=== PATIENT | female | born 1945 | race Caucasian/White ===

== ENCOUNTER 2016-10-31 07:21 | Inpatient (IN) ==
[2016-10-31] MEDS ORDERED: Piperacillin/Tazobactam 3.375 GM in D5% in Water (Mini-Bag+) 100 ML IVPB ONE (07:38)
[2016-10-31] MEDS ORDERED: Vancomycin 1,750 MG in D5% in Water 250 ML IVPB ONE (07:38)
[2016-10-31] MEDS ORDERED: 0.9 % Sodium Chloride 1,000 ML IVC ONE (07:38)
[2016-10-31] MEDS ORDERED: Vancomycin 1,750 MG in D5% in Water 500 ML IVPB ONE (08:00)
--- NOTE | 2016-10-31 08:06 | Emergency Department Note ---
Disposition Clinical Impression: HCAP (healthcare-associated pneumonia) Disposition: Admitted As Inpatient Condition: Fair Referrals: Cecy Valdez MD [Primary Care Provider] - Forms: ED Satisfaction Letter Time of Disposition: 09:37 SOB HPI - General Chief Complaint: ED Shortness of Breath/Dyspnea Stated Complaint: AMANDA/weakness/unsteady on feet Time Seen by Provider: 10/31/16 07:35 Source: patient, EMS Limitations: no limitations Nursing Notes Reviewed: Yes Vital Signs Reviewed: Yes - History of Present Illness Pt Subjective Complaint: shortness of breath Onset (ago): day(s) (3 days) Severity: severe (She cannot walk from one room to the next in her house without visibly becoming very short of breath) Consistency/Duration: constant, gradually worsening Improves with: rest Worsens with: exertion Known history of: COPD, congestive heart failure, diabetes Associated symptoms: Reports: fever, cough, other (Weakness) Treatment prior to arrival: none Cough present: Yes Cough Frequency: Intermittent Sputum production: Yes Sputum Amount: Scant - Related Data Home Medications Medication Instructions Recorded Confirmed Alendronate Sodium 70 mg PO SA 01/16/15 08/13/16 Ascorbic Acid [Vitamin C] 500 mg PO BID 01/16/15 08/13/16 Aspirin Enteric Coated [Aspirin EC] 81 mg PO HS 01/16/15 08/13/16 Atorvastatin [Lipitor] 40 mg PO HS 01/16/15 08/13/16 Cholecalciferol (Vitamin D3) 1,000 unit PO HS 01/16/15 08/13/16 [Vitamin D] Levothyroxine [Synthroid] 50 mcg PO QAM 01/16/15 08/13/16 Metoprolol XL (24 HR) Succ [Toprol 100 mg PO QPM 01/16/15 08/13/16 XL] Calcium Carbonate [Calcium] 600 mg PO BID 08/13/16 08/13/16 Denosumab [Prolia (For Outpatient 60 mg SQ Q6M 08/13/16 08/13/16 Infusion)] Gabapentin [Neurontin] 200 mg PO HS 08/13/16 08/13/16 Glucosam/Chond/Hyalu/Cf Borate 1 each PO HS 08/13/16 08/13/16 [Move Free Joint Health Tablet] Insulin Human Regular [HumuLIN R] 5 - 10 unit SQ TID 08/13/16 08/13/16 Lactobacillus Combination No.8 1 cap PO QPM 08/13/16 08/13/16 [Adult Probiotic] Lidocaine Patch [Lidoderm 5% patch] 1 each TP DAILY 08/13/16 08/13/16 Multivitamin [Multivitamins] 1 each PO DAILY 08/13/16 08/13/16 [place]-3/Dha/Epa/Fish Oil [Fish Oil 1 each PO HS 08/13/16 08/13/16 1,000 mg Softgel] Ranitidine HCl [Zantac] 150 mg PO HS 08/13/16 08/13/16 Sodium Bicarbonate 650 mg PO TID 08/13/16 08/13/16 amLODIPine [Norvasc] 5 mg PO QPM 08/13/16 08/13/16 Allergies Allergy/AdvReac Type Severity Reaction Status Date / Time levofloxacin Allergy Severe Itching Verified 10/31/16 07:24 All systems ED: reviewed and negative except as stated. Constitutional: Reports: fever, chills ENT ED: Denies: ear pain, throat pain, congestion Cardiovascular: Denies: chest pain, palpitations Respiratory: Reports: cough, dyspnea Gastrointestinal: Denies: abdominal pain, nausea, vomiting Musculoskeletal: Denies: back pain Integumentary: Denies: rash Neurological: Reports: weakness (Generalized). Denies: headache Past Medical History - Past Medical History Attestation: Yes The following information was validated with the patient. Source: patient, old records reviewed, obtained from family, nursing notes reviewed Medical history: Reports: arthritis, asthma, CHF, COPD, diabetes, dialysis, GERD , hyperlipidemia, hypertension, osteoporosis, renal disease, thyroid disease, other Surgical history: Reports: angioplasty/stent, cataract, cholecystectomy, herniorrhaphy, other Psychiatric history: Reports: no psych history SURGICAL APPLIANCE FITTER history: Reports: no SURGICAL APPLIANCE FITTER history - Social History Smoking Status: Former smoker Smokeless Tobacco Status: No Alcohol use: Reports: none Drug use: Reports: none Physical Exam - General Limitations: no limitations General appearance: alert - Head Head exam: atraumatic, normocephalic - Eye Eye exam: Present: normal appearance, PERRL. Absent: scleral icterus, conjunctival injection - ENT ENT exam: normal oropharynx, mucous membranes moist, TM's normal bilaterally - Neck Neck exam: Present: normal inspection, full ROM. Absent: tenderness, meningismus - Chest Chest inspection: Present: normal inspection, symmetric chest wall rise. Absent : tenderness - Respiratory Respiratory exam: Present: normal lung sounds bilaterally. Absent: respiratory distress, wheezes - Cardiovascular Cardiovascular exam: Present: regular rate, normal rhythm, normal heart sounds - Abdominal Exam Abdominal exam: Present: soft, Non-Tender, normal bowel sounds - Extremities Exam Extremities exam: Present: full ROM. Absent: tenderness - Neurological Exam Neurological exam: Present: alert, oriented X3 - Psychiatric Psychiatric exam: Present: normal affect, normal mood - Skin Skin exam: Present: warm, dry. Absent: rash Course Course Narrative: Patient arrives she will return to complaint of shortness of breath superimposed on several days of cough. She now has fevers and chills as well. She arrives here with a temperature. Patient has multiple significant medical issues including COPD, diabetes, and end-stage renal disease and gets dialysis( last dialysis was yesterday and went without issue). Concern here for sepsis. I ordered sepsis labs and ordered empiric antibiotic coverage. I ordered IV fluids but not at 30/kg given the patient's history of dialysis and concern for volume overload. Her blood pressure and heart rate are good so I will give fluids in response to re-evaluations. Disposition will be based on diagnostic results and reevaluation. - Reevaluation(s) Reevaluation #1: Patient is resting comfortably. Labs appear baseline at this point. There is a pneumonia on the chest x-ray. Patient will need to be admitted. Vital signs are good. I have already discussed the case with her all round butcher. Antibiotics already running. I tried to get a blood gas on the patient but it was challenging and family now refuses to let us get a blood gas. Patient is tired but not somnolence and does not appear to be needing BiPAP or airway intervention at this point. I did order some breathing treatments. I am waiting for the hospitalist to call back for the admission. Time: 09:23 - Consultations Consultation #1: Dr. Crowell, nephrology - I discussed the case with the patient's all round butcher. He is aware of the case at this point. He recommends admission to the hospitalist service. Time: 09:22 Consultation #2: Dr. Lam, hospitalist - I discussed the case with the hospitalist. I discussed case presentation, diagnostic results, current condition of the patient. He has accepted the patient for admission to the hospital. Time: 09:37 Vital Signs Temperature 100.3 F H 10/31/16 07:25 Pulse Rate 96 10/31/16 07:25 Respiratory Rate 24 10/31/16 07:25 Blood Pressure 162/70 10/31/16 07:25 O2 Sat by Pulse Oximetry 87 10/31/16 07:25 Temperature 100.3 F H 10/31/16 07:25 Pulse Rate 93 10/31/16 07:30 Respiratory Rate 24 10/31/16 07:30 Blood Pressure 158/136 10/31/16 07:30 O2 Sat by Pulse Oximetry 93 10/31/16 07:32 Oxygen Delivery Oxygen Delivery Nasal Cannula Shortness of Breath/Dyspnea - Medical Records Medical records reviewed: Yes I reviewed the patient's medical records. - Lab Data Lab results reviewed: Yes I reviewed the patient's lab results. Result diagrams: 10/31/16 08:23 10/31/16 08:12 Lab Results 10/31/16 10/31/16 10/31/16 Range/Units 08:12 08:23 08:23 WBC 11.6 H (4.3-11.1) K/mcL RBC 3.22 L (3.82-4.97) M/mcL Hgb 9.4 L (11.5-15.4) g/dL Hct 31.7 L (35.3-44.9) % MCV 98.4 (83.0-100.0) fL MCH 29.2 (28.0-33.3) pg MCHC 29.7 L (31.6-35.5) g/dL RDW 14.0 (11.5-14.5) % Plt Count 201 (140-400) K/mcL MPV 10.4 (9.4-12.4) fL Immature Gran % 0.5 (0-4) % Seg Neutrophils % 83.3 % Lymphocytes % 8.0 % Monocytes % 7.7 % Eosinophils % 0.2 % Basophils % 0.3 % Neutrophils # 9.7 H (1.6-8.9) K/mcL Lymphocytes # 0.9 (0.6-4.6) K/mcL Monocytes # 0.9 (0.0-1.3) K/mcL Eosinophils # 0.0 (0.0-0.6) K/mcL Basophils # 0.0 (0.0-0.2) K/mcL Immature Plt Fraction 3.6 (1.1-6.1) % PT 14.4 H (9.4-12.1) Seconds INR 1.3 APTT 25.7 L (26.0-36.0) Seconds Sodium 139 (136-145) mEq/L Potassium 5.5 H (3.5-4.5) mEq/L Chloride 97 L (98-109) mEq/L Carbon Dioxide 26 (19-29) mEq/L BUN 40 H (7-20) mg/dL Creatinine 6.04 H (0.57-1.11) mg/dL Est GFR ( Amer) 8 L (> 60) Est GFR (Non-Af Amer) 7 L (> 60) BUN/Creatinine Ratio 7 (6-26) Glucose 175 H (70-99) mg/dL Calculated Osmolality 302 H (280-300) Lactic Acid (0.5-2.2) mmol/L Calcium 9.9 (8.6-10.8) mg/dL Phosphorus 3.6 (2.3-4.7) mg/dL Magnesium 2.2 (1.6-2.6) mg/dL Total Bilirubin 1.0 (0.2-1.2) mg/dL Direct Bilirubin 0.6 H (0.0-0.5) mg/dL Indirect Bilirubin 0.4 (0.0-1.2) mg/dL AST 56 H (5-34) Units/L ALT 97 H (0-55) Units/L Alkaline Phosphatase 284 H (38-126) Units/L Troponin I (0-0.03) ng/mL Serum Total Protein 7.5 (6.0-8.3) g/dL Albumin 2.8 L (3.5-5.0) g/dL Globulin 4.7 H (2.4-3.5) g/dL Albumin/Globulin Ratio 0.6 L (1.1-2.2) 10/31/16 10/31/16 Range/Units 08:23 08:23 WBC (4.3-11.1) K/mcL RBC (3.82-4.97) M/mcL Hgb (11.5-15.4) g/dL Hct (35.3-44.9) % MCV (83.0-100.0) fL MCH (28.0-33.3) pg MCHC (31.6-35.5) g/dL RDW (11.5-14.5) % Plt Count (140-400) K/mcL MPV (9.4-12.4) fL Immature Gran % (0-4) % Seg Neutrophils % % Lymphocytes % % Monocytes % % Eosinophils % % Basophils % % Neutrophils # (1.6-8.9) K/mcL Lymphocytes # (0.6-4.6) K/mcL Monocytes # (0.0-1.3) K/mcL Eosinophils # (0.0-0.6) K/mcL Basophils # (0.0-0.2) K/mcL Immature Plt Fraction (1.1-6.1) % PT (9.4-12.1) Seconds INR APTT (26.0-36.0) Seconds Sodium (136-145) mEq/L Potassium (3.5-4.5) mEq/L Chloride (98-109) mEq/L Carbon Dioxide (19-29) mEq/L BUN (7-20) mg/dL Creatinine (0.57-1.11) mg/dL Est GFR ( Amer) (> 60) Est GFR (Non-Af Amer) (> 60) BUN/Creatinine Ratio (6-26) Glucose (70-99) mg/dL Calculated Osmolality (280-300) Lactic Acid 1.1 (0.5-2.2) mmol/L Calcium (8.6-10.8) mg/dL Phosphorus (2.3-4.7) mg/dL Magnesium (1.6-2.6) mg/dL Total Bilirubin (0.2-1.2) mg/dL Direct Bilirubin (0.0-0.5) mg/dL Indirect Bilirubin (0.0-1.2) mg/dL AST (5-34) Units/L ALT (0-55) Units/L Alkaline Phosphatase (38-126) Units/L Troponin I 0.13 H* (0-0.03) ng/mL Serum Total Protein (6.0-8.3) g/dL Albumin (3.5-5.0) g/dL Globulin (2.4-3.5) g/dL Albumin/Globulin Ratio (1.1-2.2) - Radiology Data Radiology results reviewed: Yes I reviewed the patient's radiology results. - EKG Data EKG attestation: Yes I reviewed and interpreted this EKG. EKG shows normal: Reports: sinus rhythm Rate: Reports: normal [place]/QRS: Reports: left axis deviation Heart block present: Reports: 1st Degree When compared to previous EKG there are: no significant changes Interpretation: Reports: unchanged when compared to prior tracing (date) (August 2015), nonspecific ST-T wave changes
[2016-10-31 08:30] LABS: Basophils % 0.3 %; Eosinophils % 0.2 %; Hematocrit 31.7 % (35.3-44.9); Hemoglobin 9.4 g/dL (11.5-15.4); Immature Granulocytes % 0.5 % (0-4); Immature Platelets 3.6 % (1.1-6.1); Lymphocytes # 0.9 K/mcL (0.6-4.6); Mean Corpuscular HGB Conc 29.7 g/dL (31.6-35.5); Mean Corpuscular Hemoglobin 29.2 pg (28.0-33.3); Mean Corpuscular Volume 98.4 fL (83.0-100.0); Mean Platelet Volume 10.4 fL (9.4-12.4); Monocytes # 0.9 K/mcL (0.0-1.3); Monocytes % 7.7 %; Neutrophils # 9.7 K/mcL (1.6-8.9); Platelet Count 201 K/mcL (140-400); Red Blood Count 3.22 M/mcL (3.82-4.97); Segmented Neutrophils % 83.3 %
[2016-10-31 08:33] LABS: Albumin 2.8 g/dL (3.5-5.0); Albumin/Globulin Ratio 0.6 (1.1-2.2); Bilirubin,Direct 0.6 mg/dL (0.0-0.5); Bilirubin,Indirect 0.4 mg/dL (0.0-1.2); Calcium 9.9 mg/dL (8.6-10.8); Globulin 4.7 g/dL (2.4-3.5); Magnesium 2.2 mg/dL (1.6-2.6); Phosphorous 3.6 mg/dL (2.3-4.7); Potassium 5.5 mEq/L (3.5-4.5); Total Protein 7.5 g/dL (6.0-8.3)
[2016-10-31 08:34] LABS: INR 1.3; Prothrombin Time 14.4 Seconds (9.4-12.1)
[2016-10-31 08:37] LABS: Activated Partial Thrombo Time 25.7 Seconds (26.0-36.0)
[2016-10-31] MEDS ORDERED: Ipratropium/Albuterol Neb 3 ML IH ONE (09:17)
[2016-10-31] MEDS ORDERED: Naloxone 0.4 MG/ML INJ IVP PRN (10:04)
--- NOTE | 2016-10-31 10:23 | Internal Med History&Physical ---
Date of Encounter: 10/31/16 Time of Encounter: 09:50 Assessment and Plan (1) Pneumonia Current visit: Yes Status: Suspected Patient presented with pneumonia involving the right lung concerning for healthcare associated pneumonia. We will treat with broad-spectrum antibiotics. Admit inpatient. She will stay in hospital for at least 2 midnights. Follow blood and sputum cultures. High risk for complications Qualifiers: Pneumonia type: due to methicillin-resistant Staphylococcus aureus (MRSA) Laterality: right Lung location: upper lobe of lung Qualified Code(s): J15.212 - Pneumonia due to Methicillin resistant Staphylococcus aureus (2) Anemia Current visit: Yes Status: Chronic Anemia of chronic kidney disease. Hemoglobin is at baseline. Will monitor closely. Qualifiers: Anemia type: other cause Other causes of anemia: chronic disease, neoplastic Qualified Code(s): D63.0 - Anemia in neoplastic disease (3) Chronic respiratory failure Current visit: Yes Status: Chronic Continue O2 supplementation Qualifiers: Respiratory failure complication: hypoxia Qualified Code(s): J96.11 - Chronic respiratory failure with hypoxia (4) Congestive heart failure Current visit: No Status: Chronic Patient with chronic diastolic heart failure. Not in acute exacerbation at this time. Fluid restriction and volume management with hemodialysis Qualifiers: Congestive heart failure type: diastolic Congestive heart failure chronicity: chronic Qualified Code(s): I50.32 - Chronic diastolic (congestive ) heart failure (5) Diabetes mellitus Current visit: Yes Status: Chronic Monitor blood sugars. Sliding scale insulin. Diabetic diet. Qualifiers: Diabetes mellitus type: type 2 Diabetes mellitus complication status: with kidney complications Diabetes mellitus complication detail: with chronic kidney disease Diabetes mellitus long term care social worker insulin use: with shelter use Chronic kidney disease stage: on chronic dialysis Qualified Code(s): E11.22 - Type 2 diabetes mellitus with diabetic chronic kidney disease; N18.6 - End stage renal disease; Z79.4 - long term care social worker (current) use of insulin; Z99.2 - Dependence on renal dialysis (6) ESRD (end stage renal disease) on dialysis Current visit: Yes Status: Chronic Nephrology consulted for dialysis needs. (7) HCAP (healthcare-associated pneumonia) Current visit: Yes Status: Acute (8) Essential hypertension Current visit: Yes Status: Chronic Uncontrolled. Continue home medications and monitor blood pressure closely. Adjust antihypertensives accordingly. (9) Hyperkalemia Current visit: Yes Status: Acute Will be managed with hemodialysis. Potassium 5.5 today. (10) COPD (chronic obstructive pulmonary disease) Current visit: No Status: Chronic Continue bronchodilators and O2 supplementation. Does not appear to be in acute exacerbation at this time. Qualifiers: COPD type: unspecified COPD Qualified Code(s): J44.9 - Chronic obstructive pulmonary disease, unspecified Internal Medicine - H&P: HPI Chief complaint: Shortness of breath, malaise Admitted From: Emergency Dept Plans for Post Hospital Care: Transfer Residential Facility History of present illness: Ms. Richey is a 71 year old female patient with history of COPD, end-stage renal disease on hemodialysis, congestive heart failure, diabetes mellitus type 2, chronic respiratory failure on 2 L home oxygen presented to the ER with complaints of worsening shortness of breath for the past 3 days. She is not able to ambulate for even from one room to the next because of her significant shortness of breath. She has also been having some wheezing that is not relieved with her aggressive treatments for COPD. She has had some fever and cough without any sputum. She feels weak and tired and fatigued. She has not missed any dialysis sessions. She was dialyzed yesterday. She has not been hospitalized recently. Past Med Surg Social Fam HX - Past Medical History Attestation: Yes The following information was validated with the patient. Source: patient, old records reviewed, obtained from family Medical history: arthritis, asthma, CHF, COPD, diabetes, dialysis, GERD, hyperlipidemia, hypertension, osteoporosis, renal disease, thyroid disease, other Psychiatric history: no psych history - Past Surgical History Surgical History: angioplasty/stent, cataract, cholecystectomy, herniorrhaphy, other - Social History Smoking Status: Former smoker Smokeless Tobacco Status: No Alcohol use: none Drug use: none - Family History Father Living Status: Hx Family Cardiac Disorders: Yes - Additional Family History Additional family history: Reviewed and found to be noncontributory at this time Internal Medicine - H&P: Meds Alendronate Sodium 70 mg PO SA 01/16/15 [History] Ascorbic Acid [Vitamin C] 500 mg PO BID 01/16/15 [History] Aspirin Enteric Coated [Aspirin EC] 81 mg PO HS 01/16/15 [History] Atorvastatin [Lipitor] 40 mg PO HS 01/16/15 [History] Cholecalciferol (Vitamin D3) [Vitamin D] 1,000 unit PO HS 01/16/15 [History] Levothyroxine [Synthroid] 50 mcg PO QAM 01/16/15 [History] Metoprolol XL (24 HR) Succ [Toprol XL] 100 mg PO QPM 01/16/15 [History] Calcium Carbonate [Calcium] 600 mg PO BID 08/13/16 [History] Denosumab [Prolia (For Outpatient Infusion)] 60 mg SQ Q6M 08/13/16 [History] Gabapentin [Neurontin] 200 mg PO HS 08/13/16 [History] Glucosam/Chond/Hyalu/Cf Borate [Move Free Joint Health Tablet] 1 each PO HS 08/26 [History] Lactobacillus Combination No.8 [Adult Probiotic] 1 cap PO QPM 08/13/16 [History] Lidocaine Patch [Lidoderm 5% patch] 1 each TP DAILY 08/13/16 [History] Multivitamin [Multivitamins] 1 each PO DAILY 08/13/16 [History] [place]-3/Dha/Epa/Fish Oil [Fish Oil 1,000 mg Softgel] 1 each PO HS 08/13/16 [ History] Ranitidine HCl [Zantac] 150 mg PO HS 08/13/16 [History] Sodium Bicarbonate 650 mg PO TID 08/13/16 [History] Albuterol Sulfate [Albuterol Inhaler] 2 puff IH Q6HR PRN 10/31/16 [History] Calcium Acetate [Phos-LO] 2,001 mg PO TIDWM 10/31/16 [History] HYDROcodone/Acet 5/325 mg [[place] 5-325 mg] 1 tab PO TID PRN 10/31/16 [History] Insulin Regular, Human [Novolin R] 5 - 10 unit IJ TID MDD per sliding scale [History] Oxygen 2 l NS CONT 10/31/16 [History] Allergies levofloxacin Allergy (Severe, Verified 10/31/16 07:24) Itching All Systems PM: A 10-system review of systems was performed and is negative for pertinent findings except as documented above in the HPI. - Constitutional Constitutional: fatigue, lethargy, malaise, weakness, no chills, no fever(s), no night sweats - EENT Eyes: no change in vision, no discharge, no pain, no photophobia Ears: no ear discharge, no ear pain, no tinnitus Nose, mouth and throat: no dysphagia, no nasal discharge, no neck pain, no sore throat - Cardiovascular Cardiovascular ROS IM: dyspnea, no chest pain, no diaphoresis, no lightheadedness, no palpitations, no syncope - Respiratory Respiratory: cough, dyspnea, dyspnea on exertion, wheezing, no excessive phlegm production - Gastrointestinal Gastrointestinal: no abdominal pain, no diarrhea, no hematemesis, no hematochezia, no melena, no nausea, no vomiting - Genitourinary Genitourinary: no change in urinary stream, no dysuria, no flank pain, no hematuria - Musculoskeletal Musculoskeletal ROS IM: no numbness, no tingling - Integumentary Integumentary IM: no rash, no unusual bruising - Neurological Neurological ROS: no confusion, no convulsions, no focal weakness, no numbness, no tingling, no tremor(s) - Hematologic/Lymphatic Hematologic/Lymphatic: no easy bruising - Constitutional Vitals: Temp Pulse Resp BP Pulse Ox 100.3 F H 93 16 158/136 98 10/31/16 07:25 10/31/16 07:30 10/31/16 10:11 10/31/16 07:30 10/31/16 10:11 General appearance: Present: cooperative, A&O X 3, morbidly obese, answers questions appropriately Exam: Moderate distress - Eye Eye exam: Present: EOMI, PERRL, conjuntiva pink, sclera anicteric - Neck Neck exam general surgery: Present: supple, trachea midline. Absent: lymphadenopathy - Respiratory Respiratory exam: Present: prolonged expiratory phase. Absent: accessory muscle use, rales, rhonchi, wheezes Additional comments: Coarse breath sounds in the right lung - Cardiovascular Cardiovascular exam: Present: RRR, +S1, +S2. Absent: diastolic murmur, gallop, rubs, systolic murmur - GI/Abdominal GI/Abdominal exam: Present: normal bowel sounds, soft, no peritoneal signs. Absent: distended, tenderness - Extremities Exam Extremities exam: Present: pedal edema, warm, radial pulses palpable and symetrical. Absent: calf tenderness, cyanotic - Neurological Exam Neurological exam: Present: alert, oriented X3, no focal deficits. Absent: facial droop, speech deficit - Skin Skin exam: Present: dry, intact Internal Med - H&P Results - Labs CBC & Chem 7: 10/31/16 08:23 10/31/16 08:12 - Impressions Impressions Chest X-Ray 10/31/16 07:39 IMPRESSION: Vascular congestion with dense right upper lobe consolidation. Recommend follow up evaluations until clear. D/ / 10/31/2016 07:58:02 Ankush Mariscal MD / jennifer Interpreting Provider: Ankush Mariscal MD
[2016-10-31] MEDS ORDERED: Dextrose Gel 15 GM PO PRN ×2 (10:33)
[2016-10-31] MEDS ORDERED: D5% in Water 1,000 ML IVC PRN (10:33)
[2016-10-31] MEDS ORDERED: *HR* Dextrose 50 % in Water (Syg) 50 ML SYRINGE IVP PRN (10:33)
[2016-10-31] MEDS ORDERED: Cefepime HCl 1,000 MG in D5% in Water (Mini-Bag+) 100 ML IVPB SCH (11:00)
[2016-10-31] MEDS: Acetaminophen 325 MG TABLET PO PRN ×2 (12:08→20:15)
[2016-10-31] MEDS: Insulin LISPRO 300 UNITS/3 ML VIAL SQ SCH ×3 (12:08→20:15)
[2016-10-31] MEDS ORDERED: Piperacillin/Tazobactam 3.375 GM in D5% in Water (Mini-Bag+) 100 ML IVPB SCH (16:00)
[2016-10-31] MEDS ORDERED: Piperacillin/Tazobactam 2.25 GM in D5% in Water (Mini-Bag+) 100 ML IVPB SCH (16:00)
[2016-10-31] MEDS: *HR* Heparin 5,000 UNIT/ML VIAL SQ SCH (16:49)
[2016-10-31] MEDS: Ipratropium/Albuterol Neb 3 ML IH PRN ×2 (17:03→20:29)
[2016-11-01] MEDS: Acetaminophen 325 MG TABLET PO PRN ×2 (04:12→14:09)
[2016-11-01] MEDS: *HR* Heparin 5,000 UNIT/ML VIAL SQ SCH ×2 (05:34→17:10)
[2016-11-01 07:47] LABS: Potassium 5.4 mEq/L (3.5-4.5)
[2016-11-01 07:48] LABS: Calcium 8.4 mg/dL (8.6-10.8)
[2016-11-01 07:57] LABS: Basophils % 0.1 %; Eosinophils % 0.1 %; Hematocrit 28.6 % (35.3-44.9); Hemoglobin 8.8 g/dL (11.5-15.4); Immature Granulocytes % 0.3 % (0-4); Lymphocytes # 0.7 K/mcL (0.6-4.6); Lymphocytes % 4.8 %; Mean Corpuscular HGB Conc 30.8 g/dL (31.6-35.5); Mean Corpuscular Volume 97.6 fL (83.0-100.0); Mean Platelet Volume 11.5 fL (9.4-12.4); Monocytes # 0.6 K/mcL (0.0-1.3); Monocytes % 3.8 %; Neutrophils # 13.8 K/mcL (1.6-8.9); Platelet Count 170 K/mcL (140-400); Red Blood Count 2.93 M/mcL (3.82-4.97); Red Cell Distribution Width 14.5 % (11.5-14.5); Segmented Neutrophils % 90.9 %
[2016-11-01] MEDS: Insulin LISPRO 300 UNITS/3 ML VIAL SQ SCH ×4 (08:23→21:08)
[2016-11-01] MEDS ORDERED: D5 IVPB SCH (09:00)
[2016-11-01] MEDS ORDERED: WATER IVPB SCH (09:00)
[2016-11-01] MEDS ORDERED: PIPERACILLIN IVPB SCH (09:00)
[2016-11-01] MEDS ORDERED: TAZOBACTAM IVPB SCH (09:00)
--- NOTE | 2016-11-01 09:37 | Nephrology Consult Note ---
Date of Encounter: 11/01/16 Time of Encounter: 09:34 Assessment and Plan (1) ESRD (end stage renal disease) on dialysis Current Visit: Yes Status: Chronic Patient has end-stage renal disease. She will undergo usual dialysis today. She presents with right upper lobe pneumonia. She is currently on antibiotics and feeling better. Hemoglobin is 8.8. She will be started on Aranesp. (2) Pneumonia Current Visit: Yes Status: Acute Qualifiers: Pneumonia type: due to unspecified organism Laterality: right Lung location: upper lobe of lung Qualified Code(s): J18.1 - Lobar pneumonia, unspecified organism (3) Anemia in CKD (chronic kidney disease) Current Visit: No Status: Chronic History of Present Illness - History of Present Illness This is a 71-year-old female with end-stage renal disease who receives dialysis every Friday in [place]. Patient was admitted via the emergency room where she presented with a 3 day history of worsening shortness of breath along with a nonproductive cough. Chest x-ray showed a right upper lobe consolidation. She was admitted to the hospital and placed on antibiotics for presumed right upper lobe pneumonia. Patient continues to have a cough. There is no sputum production. She says her breathing has improved. Earlier today she did have a temperature of 101.4. White blood cell count was mildly elevated at 15.2. She denies any lower extremity swelling. She denies any chest pain. She does have underlying COPD as well as sleep apnea. She is scheduled for her usual dialysis today. Past Med Surg Social Fam HX - Past Medical History Medical history: arthritis, asthma, CHF, COPD, diabetes, dialysis, GERD, hyperlipidemia, hypertension, osteoporosis, renal disease, thyroid disease, other Psychiatric history: no psych history - Past Surgical History Surgical History: angioplasty/stent, cataract, cholecystectomy, herniorrhaphy, other - Social History Smoking Status: Former smoker Smokeless Tobacco Status: No Alcohol use: none Drug use: none - Family History Father Living Status: Hx Family Cardiac Disorders: Yes Medications and Allergies Alendronate Sodium 70 mg PO SA 01/16/15 [History] Ascorbic Acid [Vitamin C] 500 mg PO BID 01/16/15 [History] Aspirin Enteric Coated [Aspirin EC] 81 mg PO HS 01/16/15 [History] Atorvastatin [Lipitor] 40 mg PO HS 01/16/15 [History] Cholecalciferol (Vitamin D3) [Vitamin D] 1,000 unit PO HS 01/16/15 [History] Levothyroxine [Synthroid] 50 mcg PO QAM 01/16/15 [History] Metoprolol XL (24 HR) Succ [Toprol XL] 100 mg PO QPM 01/16/15 [History] Calcium Carbonate [Calcium] 600 mg PO BID 08/13/16 [History] Denosumab [Prolia (For Outpatient Infusion)] 60 mg SQ Q6M 08/13/16 [History] Gabapentin [Neurontin] 200 mg PO HS 08/13/16 [History] Glucosam/Chond/Hyalu/Cf Borate [Move Free Joint Health Tablet] 1 tab PO HS 08/13 [History] Lactobacillus Combination No.8 [Adult Probiotic] 1 cap PO QPM 08/13/16 [History] Lidocaine Patch [Lidoderm 5% patch] 1 patch TP DAILY PRN 08/13/16 [History] Multivitamin [Multivitamins] 1 tab PO DAILY 08/13/16 [History] [place]-3/Dha/Epa/Fish Oil [Fish Oil 1,000 mg Softgel] 1,000 mg PO HS 08/13/16 [ History] Ranitidine HCl [Zantac] 150 mg PO HS 08/13/16 [History] Sodium Bicarbonate 650 mg PO TID 08/13/16 [History] Albuterol Sulfate [Albuterol Inhaler] 2 puff IH Q6HR PRN 10/31/16 [History] Calcium Acetate [Phos-LO] 2,001 mg PO TIDWM 10/31/16 [History] HYDROcodone/Acet 5/325 mg [[place] 5-325 mg] 1 tab PO TID PRN 10/31/16 [History] Insulin Regular, Human [Novolin R] 5 - 10 unit IJ TID MDD per sliding scale [History] Oxygen 2 l NS CONT 10/31/16 [History] Allergies levofloxacin Allergy (Severe, Verified 10/31/16 07:24) Itching Review of Systems Constitutional: as per HPI Eyes: bilateral: blurred vision (patient denies), diplopia (patient denies) Nose, mouth and throat: no dizziness, no headache(s) Cardiovascular: as per HPI, dyspnea, dyspnea on exertion Respiratory: as per HPI, cough, dyspnea, dyspnea on exertion Gastrointestinal: no abdominal pain, no change in bowel habits Musculoskeletal: back pain Integumentary: no hirsutism, no striae Neurological: as per HPI Psychiatric: no depression, no difficulty concentrating Endocrine: as per HPI Hematologic/Lymphatic: no easy bruising, no lymphadenopathy Exam - Vital Signs Vital signs: Initial Vital Signs Temp Pulse Resp BP Pulse Ox 100.3 F H 96 24 162/70 87 10/31/16 07:25 10/31/16 07:25 10/31/16 07:25 10/31/16 07:25 10/31/16 07:25 Vital Signs - Last 8 Hours Temp Pulse Resp BP Pulse Ox 11/01/16 08:04 99.0 F 79 17 140/74 98 11/01/16 04:07 101.4 F H 87 20 107/62 96 Intake and Output 10/31/16 11/01/16 11/01/16 23:59 07:59 15:59 Intake Total 250 / 250 60 / 60 360 / 360 Output Total 0 / 0 Balance 250 / 250 60 / 60 360 / 360 Intake: IV Fluids 200 / 200 Maxipime 1,000 MG In 100 / 100 Dextrose 5% (Minibag+) 100 ML 100 ML @ 200 mls/ hr IVPB DAILY [facility] Rx#: [id number] Zosyn 3.375 GM In 100 / 100 Dextrose 5% (Minibag+) 100 ML 100 ML @ 25 mls/hr IVPB Q12HR [facility] Rx#: [id number] Oral 50 / 50 60 / 60 360 / 360 Output: Urine 0 / 0 Other: Meal Dinner Breakfast Percent of Meal Consumed 10% 50% Weight 109.9 kg Blood Glucose* 207 138 Patient Weight 11/01/16 23:59 Weight 109.9 kg - General Appearance Exam: Patient is alert and oriented. She is in no acute distress. Blood pressure 140 /74. Neck supple. Lungs bilateral coarse breath sounds and rhonchi. Worse on the right compared to the left. Heart irregular rate and rhythm. Abdomen is obese. Abdomen is nontender. There is no guarding or rigidity. There is minimal lower extremity swelling. There is a functioning AV fistula in the left upper extremity. Results - Lab Results 11/01/16 06:39 11/01/16 06:39 Most recent lab results Calcium 8.4 mg/dL (8.6-10.8) L D 11/01/16 06:39 Phosphorus 3.6 mg/dL (2.3-4.7) 10/31/16 08:12 Magnesium 2.2 mg/dL (1.6-2.6) 10/31/16 08:12 Consult Discharge Plan - Plan Referrals: Cecy Valdez MD [Primary Care Provider] - (Web Requested on October 31, 2016 )
[2016-11-01] MEDS ORDERED: 0.9 % Sodium Chloride 250 ML IVC PRN (09:38)
[2016-11-01] MEDS ORDERED: Vancomycin 1 EACH in D5% in Water 250 ML IVPB SCH (11:00)
[2016-11-01 11:18] LABS: Hepatitis B Surface Antibody 0.37 mIU/mL; Hepatitis B Surface Antigen Nonreactive (Nonreactive)
[2016-11-01] MEDS ORDERED: Ipratropium/Albuterol Neb 3 ML IH SCH (12:00)
[2016-11-01] MEDS ORDERED: 0.9 % Sodium Chloride 2,000 ML ONE (12:58)
[2016-11-01] MEDS: Cefepime HCl 1,000 MG in D5% in Water (Mini-Bag+) 100 ML IVPB SCH (14:08)
[2016-11-01] MEDS: Ipratropium/Albuterol Neb 3 ML IH SCH ×3 (15:30→22:35)
--- NOTE | 2016-11-01 16:11 | Internal Med Progress Note ---
Date of Encounter: 11/01/16 Time of Encounter: 10:00 - Assessment and plan (1) HCAP (healthcare-associated pneumonia) Current Visit: Yes Status: Acute Assessment and plan: Patient has pneumonia. Consider she is a chronic dialysis patient, consider healthcare associated pneumonia. - Continue vancomycin and cefepime - Continue supportive treatment and symptomatic treatment for fever and cough - Follow up blood culture and sputum culture. Patient is at high risk of because she is on vancomycin and needed close monitoring (2) Sepsis Current Visit: Yes Status: Acute Assessment and plan: Patient has a fever, leukocytosis. Meet criteria of sepsis. Infectious source should be pneumonia. - Continue IV antibiotics. - Continue IV fluid. - Closer monitor patient, supportive treatment. Qualifiers: Sepsis type: sepsis due to unspecified organism Qualified Code(s): A41.9 - Sepsis, unspecified organism (3) COPD (chronic obstructive pulmonary disease) Current Visit: No Status: Chronic Assessment and plan: No signs of exacerbation. Continue home medications. Bronchodilator every 6 hours Qualifiers: COPD type: unspecified COPD Qualified Code(s): J44.9 - Chronic obstructive pulmonary disease, unspecified (4) DESTINY (obstructive sleep apnea) Current Visit: No Status: Chronic Assessment and plan: Pt is not on CPAP at home, use oxygen at night. Will cont low rate NC O2. (5) Hypothyroidism Current Visit: No Status: Chronic Assessment and plan: Cont home med synthroid. Qualifiers: Hypothyroidism type: unspecified Qualified Code(s): E03.9 - Hypothyroidism , unspecified (6) DVT prophylaxis Current Visit: No Status: Acute Assessment and plan: Heparin subcutaneously (7) Morbid obesity with BMI of 50.0-59.9, adult Current Visit: No Status: Chronic Assessment and plan: Need lifestyle modification as outpatient (8) Anemia Current Visit: Yes Status: Chronic Assessment and plan: Due to CKD, stable Qualifiers: Anemia type: other cause Other causes of anemia: chronic disease, neoplastic Qualified Code(s): D63.0 - Anemia in neoplastic disease (9) Diabetes mellitus Current Visit: Yes Status: Chronic Assessment and plan: Continue sliding scale coverage Qualifiers: Diabetes mellitus type: type 2 Diabetes mellitus complication status: with kidney complications Diabetes mellitus complication detail: with chronic kidney disease 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: with 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 Past medical history is significant for end-stage renal disease on hemodialysis, CHF, diabetes, hypertension, anemia. Patient was seen and examined. Still cough, shortness of breath has improved after treatment. Has low fever overnight. Vitals are stable. Will continue antibiotics for pneumonia. Nephrology on case for hemodialysis. - Constitutional Vitals: Temp Pulse Resp BP Pulse Ox 99.7 F H 97 16 87/50 100 11/01/16 15:47 11/01/16 15:47 11/01/16 15:47 11/01/16 15:47 11/01/16 15:47 General appearance: Present: cooperative, mild distress, A&O X 3, morbidly obese , answers questions appropriately - Head Head exam: Present: atraumatic, normocephalic - Eye Eye exam: Present: PERRL, conjuntiva pink, sclera anicteric Pupils: Present: PERRL - Neck Neck exam general surgery: Present: supple, trachea midline. Absent: lymphadenopathy - Respiratory Respiratory exam: Present: CTAB, rales (On right side). Absent: accessory muscle use, rhonchi, wheezes - Cardiovascular Cardiovascular exam: Present: RRR, +S1, +S2. Absent: diastolic murmur, gallop, rubs, systolic murmur - GI/Abdominal GI/Abdominal exam: Present: normal bowel sounds, soft, no peritoneal signs. Absent: distended, tenderness - Extremities Exam Extremities exam: Present: warm, radial pulses palpable and symetrical. Absent : calf tenderness, cyanotic, pedal edema - Neurological Exam Neurological exam: Present: CN II-XII intact, oriented X3, no focal deficits. Absent: pronater drift, facial droop, speech deficit - Skin Skin exam: Present: dry, intact Internal Medicine: Result - Labs CBC & Chem 7: 11/01/16 06:39 11/01/16 06:39 Labs: Short CBC 11/01/16 Range/Units 06:39 WBC 15.2 H (4.3-11.1) K/mcL Hgb 8.8 L (11.5-15.4) g/dL Hct 28.6 L (35.3-44.9) % Plt Count 170 (140-400) K/mcL Neutrophils # 13.8 H (1.6-8.9) K/mcL BMP 11/01/16 06:39 Sodium 135 L Potassium 5.4 H Chloride 96 L Carbon Dioxide 25 BUN 54 H D Creatinine 7.18 H Glucose 123 H Calcium 8.4 L D Cardiac Enzymes 11/01/16 11/01/16 Range/Units 07:52 13:39 Troponin I 0.17 H* 0.16 H* (0-0.03) ng/mL - ABG Interpretation ABG results: PT/INR, D-dimer PT 14.4 Seconds (9.4-12.1) H 10/31/16 08:23 Consult Discharge Plan - Plan Referrals: Cecy Valedz MD [Primary Care Provider] - 11/11/16 9:30 am ()
[2016-11-01] MEDS ORDERED: 0.9 % Sodium Chloride 1,000 ML IVC SCH (16:15)
--- NOTE | 2016-11-01 17:03 | Electrocardiograph Report ---
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
[2016-11-01] MEDS ORDERED: Vancomycin 500 MG in D5% in Water (Mini-Bag+) 100 ML IVPB ONE (18:00)
[2016-11-01] MEDS: Gabapentin 100 MG CAPSULE PO SCH (21:53)
[2016-11-02] MEDS: Ipratropium/Albuterol Neb 3 ML IH SCH ×4 (03:49→22:28)
[2016-11-02 05:20] LABS: Basophils % 0.1 %; Eosinophils # 0.1 K/mcL (0.0-0.6); Hematocrit 29.8 % (35.3-44.9); Hemoglobin 8.8 g/dL (11.5-15.4); Immature Granulocytes % 0.8 % (0-4); Lymphocytes # 1.3 K/mcL (0.6-4.6); Lymphocytes % 9.8 %; Mean Corpuscular HGB Conc 29.5 g/dL (31.6-35.5); Mean Corpuscular Hemoglobin 28.9 pg (28.0-33.3); Mean Platelet Volume 11.2 fL (9.4-12.4); Monocytes # 0.9 K/mcL (0.0-1.3); Monocytes % 6.9 %; Neutrophils # 10.3 K/mcL (1.6-8.9); Platelet Count 174 K/mcL (140-400); Red Blood Count 3.04 M/mcL (3.82-4.97); Red Cell Distribution Width 14.3 % (11.5-14.5); Segmented Neutrophils % 81.4 %
[2016-11-02 05:31] LABS: Calcium 8.2 mg/dL (8.6-10.8)
[2016-11-02 05:32] LABS: Potassium 3.9 mEq/L (3.5-4.5)
[2016-11-02] MEDS: *HR* Heparin 5,000 UNIT/ML VIAL SQ SCH ×2 (06:12→17:25)
--- NOTE | 2016-11-02 07:45 | Nephrology Progress Note ---
Date of Encounter: 11/02/16 Time of Encounter: 07:44 - Assessment and Plan (1) ESRD (end stage renal disease) on dialysis Current Visit: Yes Status: Chronic Patient is stable from a renal perspective. Clinically she is improved. She will continue to receive dialysis every Friday. She may be able to be discharged home later today. (2) Pneumonia Current Visit: Yes Status: Acute Qualifiers: Pneumonia type: due to unspecified organism Laterality: right Lung location: upper lobe of lung Qualified Code(s): J18.1 - Lobar pneumonia, unspecified organism (3) Anemia in CKD (chronic kidney disease) Current Visit: No Status: Chronic Subjective Interval history: The patient reports she feels better. She denies any shortness of breath or cough. Vital signs are stable. She received her usual dialysis yesterday. Objective - Vital Signs Vital signs: Vital Signs Temp Pulse Resp BP Pulse Ox 11/02/16 03:49 16 97 11/01/16 23:15 98.4 F 88 16 132/74 96 11/01/16 22:37 15 94 11/01/16 20:00 98.8 F 101 18 96/62 94 11/01/16 17:04 96/59 11/01/16 15:47 99.7 F H 97 16 87/50 100 11/01/16 15:32 16 100 11/01/16 14:07 117/52 11/01/16 13:25 98.9 F 16 117/52 11/01/16 13:15 133/48 11/01/16 13:00 131/80 11/01/16 12:45 141/84 11/01/16 12:30 152/67 11/01/16 12:15 150/67 11/01/16 12:00 128/65 11/01/16 11:45 131/60 11/01/16 11:30 135/53 11/01/16 11:15 96/46 11/01/16 11:00 125/35 11/01/16 10:45 139/53 11/01/16 10:30 126/38 11/01/16 10:15 98.9 F 18 139/77 11/01/16 08:30 98 11/01/16 08:04 99.0 F 79 17 140/74 98 Intake and Output 11/01/16 11/01/16 11/02/16 15:59 23:59 07:59 Intake Total 960 / 960 340 / 340 Output Total 3600 / 3600 Balance -2640 / -2640 340 / 340 Intake: IV Fluids 100 / 100 Maxipime 1,000 MG In 100 / 100 Dextrose 5% (Minibag+) 100 ML 100 ML @ 200 mls/ hr IVPB DAILY@1300 [facility] Rx #:[id number] Oral 360 / 360 240 / 240 Intake, Rinseback and 600 / 600 Flushes Output: Urine 0 / 0 Total Dialysis (HD) 3600 / 3600 Output Other: Meal Breakfast Dinner Percent of Meal Consumed 50% 100% Stool Size Large Stool Consistency loose liquid Stool Color Brown # Voids 1 # Bowel Movements 1 Blood Glucose* 129 275 165 Hemodialysis Net Fluid 3000 Removed (mL) - General Appearance Exam: Patient is alert and oriented. She is in no acute distress. Lungs when his breath sounds. Heart regular rate and rhythm. Abdomen is benign. There is no lower extremity swelling. There is a left-sided AV fistula. - Lab 11/02/16 04:51 11/02/16 04:51 Most recent lab results Calcium 8.2 mg/dL (8.6-10.8) L 11/02/16 04:51 Phosphorus 3.6 mg/dL (2.3-4.7) 10/31/16 08:12 Magnesium 2.2 mg/dL (1.6-2.6) 10/31/16 08:12 Consult Discharge Plan - Plan Referrals: Cecy Valdez MD [Primary Care Provider] - 11/11/16 9:30 am ()
[2016-11-02] MEDS: Insulin LISPRO 300 UNITS/3 ML VIAL SQ SCH ×4 (08:05→21:07)
[2016-11-02] MEDS: Aspirin Enteric Coated 81 MG Tablet PO SCH (08:05)
[2016-11-02] MEDS ORDERED: Vancomycin 1,750 MG in D5% in Water 500 ML IVPB ONE (08:30)
[2016-11-02] MEDS ORDERED: Aminoglycoside Consult 1 EACH MC ONE (08:43)
[2016-11-02] MEDS: Lactobacillus 1 EACH CAP.SPRINK PO SCH (12:10)
[2016-11-02] MEDS: Cefepime HCl 1,000 MG in D5% in Water (Mini-Bag+) 100 ML IVPB SCH (12:41)
--- NOTE | 2016-11-02 14:43 | Internal Med Progress Note ---
Date of Encounter: 11/02/16 Time of Encounter: 09:00 - Assessment and plan (1) HCAP (healthcare-associated pneumonia) Current Visit: Yes Status: Acute Assessment and plan: Patient has pneumonia. Consider she is a chronic dialysis patient, consider healthcare associated pneumonia. - Continue cefepime. D/C vanco as blood culture negative - Continue supportive treatment and symptomatic treatment - Follow up sputum culture. (2) Sepsis Current Visit: Yes Status: Acute Assessment and plan: Patient has a fever, leukocytosis. Meet criteria of sepsis. Infectious source should be pneumonia. - Improved. - Continue IV antibiotics. - D/C IV fluid. - Closer monitor patient, supportive treatment. Qualifiers: Sepsis type: sepsis due to unspecified organism Qualified Code(s): A41.9 - Sepsis, unspecified organism (3) COPD (chronic obstructive pulmonary disease) Current Visit: No Status: Chronic Assessment and plan: No signs of exacerbation. Continue home medications. Bronchodilator every 6 hours Qualifiers: COPD type: unspecified COPD Qualified Code(s): J44.9 - Chronic obstructive pulmonary disease, unspecified (4) DESTINY (obstructive sleep apnea) Current Visit: No Status: Chronic Assessment and plan: Pt is not on CPAP at home, use oxygen at night. Will cont low rate NC O2. (5) Hypothyroidism Current Visit: No Status: Chronic Assessment and plan: Cont home med synthroid. Qualifiers: Hypothyroidism type: unspecified Qualified Code(s): E03.9 - Hypothyroidism , unspecified (6) DVT prophylaxis Current Visit: No Status: Acute Assessment and plan: Heparin subcutaneously (7) Morbid obesity with BMI of 50.0-59.9, adult Current Visit: No Status: Chronic Assessment and plan: Need lifestyle modification as outpatient (8) Anemia Current Visit: Yes Status: Chronic Assessment and plan: Due to CKD, stable Qualifiers: Anemia type: other cause Other causes of anemia: chronic disease, neoplastic Qualified Code(s): D63.0 - Anemia in neoplastic disease (9) Diabetes mellitus Current Visit: Yes Status: Chronic Assessment and plan: Continue sliding scale coverage Qualifiers: Diabetes mellitus type: type 2 Diabetes mellitus complication status: with kidney complications Diabetes mellitus complication detail: with chronic kidney disease Diabetes mellitus senior care insulin 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: with 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 Past medical history is significant for end-stage renal disease on hemodialysis, CHF, diabetes, hypertension, anemia. Patient was seen and examined. Feels much better. No fever over last 24 hours. Vitals are stable. Blood culture negative. Will continue antibiotics for pneumonia, deescalate to cefepime only. Nephrology on case for hemodialysis. - Constitutional Vitals: Temp Pulse Resp BP Pulse Ox 97.8 F 87 16 109/70 94 11/02/16 11:36 11/02/16 12:13 11/02/16 11:36 11/02/16 12:13 11/02/16 12:13 General appearance: Present: cooperative, mild distress, A&O X 3, morbidly obese , answers questions appropriately - Head Head exam: Present: atraumatic, normocephalic - Eye Eye exam: Present: PERRL, conjuntiva pink, sclera anicteric Pupils: Present: PERRL - Neck Neck exam general surgery: Present: supple, trachea midline. Absent: lymphadenopathy - Respiratory Respiratory exam: Present: CTAB. Absent: accessory muscle use, rales, rhonchi, wheezes - Cardiovascular Cardiovascular exam: Present: RRR, +S1, +S2. Absent: diastolic murmur, gallop, rubs, systolic murmur - GI/Abdominal GI/Abdominal exam: Present: normal bowel sounds, soft, no peritoneal signs. Absent: distended, tenderness - Extremities Exam Extremities exam: Present: warm, radial pulses palpable and symetrical. Absent : calf tenderness, cyanotic, pedal edema - Neurological Exam Neurological exam: Present: CN II-XII intact, oriented X3, no focal deficits. Absent: pronater drift, facial droop, speech deficit - Skin Skin exam: Present: dry, intact Internal Medicine: Result - Labs CBC & Chem 7: 11/02/16 04:51 11/02/16 04:51 Labs: Short CBC 11/02/16 Range/Units 04:51 WBC 12.7 H (4.3-11.1) K/mcL Hgb 8.8 L (11.5-15.4) g/dL Hct 29.8 L (35.3-44.9) % Plt Count 174 (140-400) K/mcL Neutrophils # 10.3 H (1.6-8.9) K/mcL BMP 11/02/16 04:51 Sodium 136 Potassium 3.9 D Chloride 95 L Carbon Dioxide 26 BUN 37 H D Creatinine 5.20 H Glucose 190 H Calcium 8.2 L - ABG Interpretation ABG results: PT/INR, D-dimer PT 14.4 Seconds (9.4-12.1) H 10/31/16 08:23 Consult Discharge Plan - Plan Referrals: Cecy Valdez MD [Primary Care Provider] - 11/11/16 9:30 am ()
[2016-11-02] MEDS: Gabapentin 100 MG CAPSULE PO SCH (21:06)
[2016-11-02] MEDS: *HR* HYDROcodone/Acet 5/325 mg TABLET PO PRN (21:07)
[2016-11-02] MEDS: Nystatin SUSP 5 ML UD.LIQ PO SCH (21:15)
[2016-11-03] MEDS: Ipratropium/Albuterol Neb 3 ML IH SCH ×4 (04:29→22:47)
[2016-11-03 05:49] LABS: Basophils % 0.2 %; Eosinophils # 0.3 K/mcL (0.0-0.6); Eosinophils % 3.3 %; Hematocrit 27.5 % (35.3-44.9); Hemoglobin 8.2 g/dL (11.5-15.4); Immature Granulocytes % 1.8 % (0-4); Lymphocytes # 1.1 K/mcL (0.6-4.6); Lymphocytes % 10.6 %; Mean Corpuscular HGB Conc 29.8 g/dL (31.6-35.5); Mean Corpuscular Hemoglobin 28.8 pg (28.0-33.3); Mean Corpuscular Volume 96.5 fL (83.0-100.0); Mean Platelet Volume 11.3 fL (9.4-12.4); Monocytes # 0.5 K/mcL (0.0-1.3); Monocytes % 5.3 %; Neutrophils # 8.1 K/mcL (1.6-8.9); Platelet Count 173 K/mcL (140-400); Red Blood Count 2.85 M/mcL (3.82-4.97); Red Cell Distribution Width 14.3 % (11.5-14.5); Segmented Neutrophils % 78.8 %
[2016-11-03] MEDS: *HR* Heparin 5,000 UNIT/ML VIAL SQ SCH ×2 (05:56→16:55)
[2016-11-03 06:05] LABS: Calcium 7.8 mg/dL (8.6-10.8); Potassium 4.1 mEq/L (3.5-4.5)
[2016-11-03] MEDS: *HR* HYDROcodone/Acet 5/325 mg TABLET PO PRN ×2 (06:18→21:13)
[2016-11-03] MEDS: Aspirin Enteric Coated 81 MG Tablet PO SCH (07:58)
[2016-11-03] MEDS: Lactobacillus 1 EACH CAP.SPRINK PO SCH (07:59)
[2016-11-03] MEDS: Nystatin SUSP 5 ML UD.LIQ PO SCH ×4 (07:59→21:13)
[2016-11-03] MEDS: Insulin LISPRO 300 UNITS/3 ML VIAL SQ SCH ×4 (07:59→21:07)
[2016-11-03] MEDS: Cefepime HCl 1,000 MG in D5% in Water (Mini-Bag+) 100 ML IVPB SCH (14:56)
--- NOTE | 2016-11-03 15:32 | Internal Med Progress Note ---
Date of Encounter: 11/03/16 Time of Encounter: 10:00 - Assessment and plan (1) HCAP (healthcare-associated pneumonia) Current Visit: Yes Status: Acute Assessment and plan: Patient has pneumonia. Considering she is a chronic dialysis patient, consider healthcare associated pneumonia. - Continue cefepime. - Continue supportive treatment and symptomatic treatment - Blood culture negative, Follow up sputum culture. (2) Sepsis Current Visit: Yes Status: Acute Assessment and plan: Patient has a fever, leukocytosis. Meet criteria of sepsis. Infectious source should be pneumonia. - Resolved. - Continue IV antibiotics. - D/C IV fluid. - Closer monitor patient, supportive treatment. Qualifiers: Sepsis type: sepsis due to unspecified organism Qualified Code(s): A41.9 - Sepsis, unspecified organism (3) COPD (chronic obstructive pulmonary disease) Current Visit: No Status: Chronic Assessment and plan: No signs of exacerbation. Continue home medications. Bronchodilator every 6 hours Qualifiers: COPD type: unspecified COPD Qualified Code(s): J44.9 - Chronic obstructive pulmonary disease, unspecified (4) DESTINY (obstructive sleep apnea) Current Visit: No Status: Chronic Assessment and plan: Pt is not on CPAP at home, use oxygen at night. Will cont low rate NC O2. (5) Hypothyroidism Current Visit: No Status: Chronic Assessment and plan: Cont home med synthroid. Qualifiers: Hypothyroidism type: unspecified Qualified Code(s): E03.9 - Hypothyroidism , unspecified (6) DVT prophylaxis Current Visit: No Status: Acute Assessment and plan: Heparin subcutaneously (7) Morbid obesity with BMI of 50.0-59.9, adult Current Visit: No Status: Chronic Assessment and plan: Need lifestyle modification as outpatient (8) Anemia Current Visit: Yes Status: Chronic Assessment and plan: Due to CKD, stable Qualifiers: Anemia type: other cause Other causes of anemia: chronic disease, neoplastic Qualified Code(s): D63.0 - Anemia in neoplastic disease (9) Diabetes mellitus Current Visit: Yes Status: Chronic Assessment and plan: Continue sliding scale coverage Qualifiers: Diabetes mellitus type: type 2 Diabetes mellitus complication status: with kidney complications Diabetes mellitus complication detail: with chronic kidney disease Diabetes mellitus medical terminologist insulin use: with jail use Chronic kidney disease stage: on chronic dialysis Qualified Code(s): E11.22 - Type 2 diabetes mellitus with diabetic chronic kidney disease; N18.6 - End stage renal disease; 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 Past medical history is significant for end-stage renal disease on hemodialysis, CHF, diabetes, hypertension, anemia. Patient was seen and examined. Feels much better. No fever over last 24 hours. Vitals are stable. Blood culture negative. Will continue cefepime iv. Nephrology on case for hemodialysis. Plan to d/c home after HD tomorrow if condition still stable. - Constitutional Vitals: Temp Pulse Resp BP Pulse Ox 97.8 F 83 16 120/74 99 11/03/16 15:00 11/03/16 15:00 11/03/16 15:00 11/03/16 15:00 11/03/16 15:00 General appearance: Present: cooperative, A&O X 3, morbidly obese, no acute distress, answers questions appropriately - Head Head exam: Present: atraumatic, normocephalic - Eye Eye exam: Present: PERRL, conjuntiva pink, sclera anicteric Pupils: Present: PERRL - Neck Neck exam general surgery: Present: supple, trachea midline. Absent: lymphadenopathy - Respiratory Respiratory exam: Present: CTAB. Absent: accessory muscle use, rales, rhonchi, wheezes - Cardiovascular Cardiovascular exam: Present: RRR, +S1, +S2. Absent: diastolic murmur, gallop, rubs, systolic murmur - GI/Abdominal GI/Abdominal exam: Present: normal bowel sounds, soft, no peritoneal signs. Absent: distended, tenderness - Extremities Exam Extremities exam: Present: warm, radial pulses palpable and symetrical. Absent : calf tenderness, cyanotic, pedal edema - Neurological Exam Neurological exam: Present: CN II-XII intact, oriented X3, no focal deficits. Absent: pronater drift, facial droop, speech deficit - Skin Skin exam: Present: dry, intact Internal Medicine: Result - Labs CBC & Chem 7: 11/03/16 04:46 11/03/16 04:46 Labs: Short CBC 11/03/16 Range/Units 04:46 WBC 10.2 (4.3-11.1) K/mcL Hgb 8.2 L (11.5-15.4) g/dL Hct 27.5 L (35.3-44.9) % Plt Count 173 (140-400) K/mcL Neutrophils # 8.1 (1.6-8.9) K/mcL BMP 11/03/16 04:46 Sodium 135 L Potassium 4.1 Chloride 97 L Carbon Dioxide 20 BUN 53 H D Creatinine 6.21 H Glucose 106 H Calcium 7.8 L - ABG Interpretation ABG results: PT/INR, D-dimer PT 14.4 Seconds (9.4-12.1) H 10/31/16 08:23 Consult Discharge Plan - Plan Referrals: Cecy Valdez MD [Primary Care Provider] - 11/11/16 9:30 am ()
[2016-11-03] MEDS: Gabapentin 100 MG CAPSULE PO SCH (21:13)
[2016-11-04] MEDS: Ipratropium/Albuterol Neb 3 ML IH SCH ×3 (04:00→15:52)
[2016-11-04 04:43] LABS: Basophils % 0.3 %; Eosinophils # 0.3 K/mcL (0.0-0.6); Eosinophils % 3.1 %; Hematocrit 28.8 % (35.3-44.9); Hemoglobin 8.6 g/dL (11.5-15.4); Immature Granulocytes % 2.6 % (0-4); Lymphocytes # 1.1 K/mcL (0.6-4.6); Lymphocytes % 11.4 %; Mean Corpuscular HGB Conc 29.9 g/dL (31.6-35.5); Mean Platelet Volume 11.2 fL (9.4-12.4); Monocytes # 0.4 K/mcL (0.0-1.3); Monocytes % 4.3 %; Neutrophils # 7.6 K/mcL (1.6-8.9); Platelet Count 217 K/mcL (140-400); Red Blood Count 2.97 M/mcL (3.82-4.97); Red Cell Distribution Width 14.3 % (11.5-14.5); Segmented Neutrophils % 78.3 %
[2016-11-04 04:47] LABS: Calcium 7.8 mg/dL (8.6-10.8); Potassium 4.1 mEq/L (3.5-4.5)
[2016-11-04] MEDS: *HR* Heparin 5,000 UNIT/ML VIAL SQ SCH (05:50)
[2016-11-04] MEDS: Lactobacillus 1 EACH CAP.SPRINK PO SCH (07:55)
[2016-11-04] MEDS: *HR* HYDROcodone/Acet 5/325 mg TABLET PO PRN (07:55)
[2016-11-04] MEDS: Aspirin Enteric Coated 81 MG Tablet PO SCH (07:55)
[2016-11-04] MEDS: Nystatin SUSP 5 ML UD.LIQ PO SCH ×3 (07:55→16:58)
[2016-11-04] MEDS: Insulin LISPRO 300 UNITS/3 ML VIAL SQ SCH ×3 (07:57→16:57)
[2016-11-04] MEDS ORDERED: 0.9 % Sodium Chloride 250 ML IVC PRN (09:00)
--- NOTE | 2016-11-04 09:00 | Nephrology Progress Note ---
Date of Encounter: 11/04/16 Time of Encounter: 08:59 - Assessment and Plan (1) ESRD (end stage renal disease) on dialysis Current Visit: Yes Status: Chronic Patient is stable from a renal perspective. The patient will undergo dialysis today. I anticipate she will be able to be discharged home later today. (2) Pneumonia Current Visit: Yes Status: Acute Qualifiers: Pneumonia type: due to unspecified organism Laterality: right Lung location: upper lobe of lung Qualified Code(s): J18.1 - Lobar pneumonia, unspecified organism (3) Anemia in CKD (chronic kidney disease) Current Visit: No Status: Chronic Subjective Interval history: Patient reports she is feeling better. Her breathing is back to baseline. She is having some diarrhea and she is going to be checked for C. difficile. She is scheduled for her usual dialysis today. Objective - Vital Signs Vital signs: Vital Signs Temp Pulse Resp BP Pulse Ox 11/04/16 06:51 97.3 F L 85 18 122/71 99 11/04/16 04:20 98.0 F 78 16 139/79 100 11/04/16 04:00 16 98 11/03/16 23:46 98.3 F 84 16 122/57 99 11/03/16 22:47 16 98 11/03/16 21:10 99 11/03/16 20:32 98.2 F 84 16 131/60 99 11/03/16 15:39 16 100 11/03/16 15:00 97.8 F 83 16 120/74 99 11/03/16 11:29 97.5 F L 85 18 146/83 97 11/03/16 10:56 16 100 Intake and Output 11/03/16 11/04/16 11/04/16 23:59 07:59 15:59 Intake Total 100 / 100 240 / 240 Balance 100 / 100 240 / 240 Intake: IV Fluids 100 / 100 Maxipime 1,000 MG In 100 / 100 Dextrose 5% (Minibag+) 100 ML 100 ML @ 200 mls/ hr IVPB DAILY@1300 [facility] Rx #:[id number] Oral 240 / 240 Other: Meal Breakfast Percent of Meal Consumed 80% Weight 112.854 kg Blood Glucose* 165 137 - General Appearance Exam: Patient is alert and oriented. She is in no acute distress. Lungs diminished breath sounds otherwise clear. Heart regular rate and rhythm. Abdomen is obese. There is no tenderness. There is minimal lower extremity swelling. There is a functioning AV fistula in the left arm. - Lab 11/04/16 04:20 11/04/16 04:20 Most recent lab results Calcium 7.8 mg/dL (8.6-10.8) L 11/04/16 04:20 Phosphorus 3.6 mg/dL (2.3-4.7) 10/31/16 08:12 Magnesium 2.2 mg/dL (1.6-2.6) 10/31/16 08:12 Consult Discharge Plan - Plan Referrals: Cecy Valdez MD [Primary Care Provider] - 11/11/16 9:30 am ()
[2016-11-04 13:32] VITALS: BP 136/57
[2016-11-04] MEDS: Cefepime HCl 1,000 MG in D5% in Water (Mini-Bag+) 100 ML IVPB SCH (13:50)
--- NOTE | 2016-11-04 15:28 | Discharge Summary ---
Date of Encounter: 11/04/16 Time of Encounter: 14:00 - Discharge Diagnosis (1) HCAP (healthcare-associated pneumonia) Priority: Primary Status: Acute (2) Sepsis Priority: Primary Status: Acute Qualifiers: Sepsis type: sepsis due to unspecified organism Qualified Code(s): A41.9 - Sepsis, unspecified organism (3) COPD (chronic obstructive pulmonary disease) Priority: Secondary Status: Chronic Qualifiers: COPD type: unspecified COPD Qualified Code(s): J44.9 - Chronic obstructive pulmonary disease, unspecified (4) DESTINY (obstructive sleep apnea) Priority: Secondary Status: Chronic (5) Hypothyroidism Priority: Secondary Status: Chronic Qualifiers: Hypothyroidism type: unspecified Qualified Code(s): E03.9 - Hypothyroidism , unspecified (6) DVT prophylaxis Priority: Secondary Status: Acute (7) Morbid obesity with BMI of 50.0-59.9, adult Priority: Secondary Status: Chronic (8) Anemia Priority: Secondary Status: Chronic Qualifiers: Anemia type: other cause Other causes of anemia: chronic disease, neoplastic Qualified Code(s): D63.0 - Anemia in neoplastic disease (9) Diabetes mellitus Priority: Secondary Status: Chronic Qualifiers: Diabetes mellitus type: type 2 Diabetes mellitus complication status: with kidney complications Diabetes mellitus complication detail: with chronic kidney disease 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: with half-way use Chronic kidney disease stage: on chronic dialysis Qualified Code(s): E11.22 - Type 2 diabetes mellitus with diabetic chronic kidney disease; N18.6 - End stage renal disease; 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; Z99.2 - Dependence on renal dialysis (10) ESRD on hemodialysis Priority: Secondary Status: Chronic (11) Essential hypertension Priority: Secondary Status: Chronic - Discharge Medications Prescriptions: Doxycycline 100 mg PO BID #6 capsule Home Medications: Alendronate Sodium 70 mg PO SA 01/16/15 [History] Ascorbic Acid [Vitamin C] 500 mg PO BID 01/16/15 [History] Aspirin Enteric Coated [Aspirin EC] 81 mg PO HS 01/16/15 [History] Atorvastatin [Lipitor] 40 mg PO HS 01/16/15 [History] Cholecalciferol (Vitamin D3) [Vitamin D] 1,000 unit PO HS 01/16/15 [History] Levothyroxine [Synthroid] 50 mcg PO QAM 01/16/15 [History] Metoprolol XL (24 HR) Succ [Toprol XL] 100 mg PO QPM 01/16/15 [History] Calcium Carbonate [Calcium] 600 mg PO BID 08/13/16 [History] Denosumab [Prolia (For Outpatient Infusion)] 60 mg SQ Q6M 08/13/16 [History] Gabapentin [Neurontin] 200 mg PO HS 08/13/16 [History] Glucosam/Chond/Hyalu/Cf Borate [Move Free Joint Health Tablet] 1 tab PO HS 08/13 [History] Lactobacillus Combination No.8 [Adult Probiotic] 1 cap PO QPM 08/13/16 [History] Lidocaine Patch [Lidoderm 5% patch] 1 patch TP DAILY PRN 08/13/16 [History] Multivitamin [Multivitamins] 1 tab PO DAILY 08/13/16 [History] [place]-3/Dha/Epa/Fish Oil [Fish Oil 1,000 mg Softgel] 1,000 mg PO HS 08/13/16 [ History] Ranitidine HCl [Zantac] 150 mg PO HS 08/13/16 [History] Sodium Bicarbonate 650 mg PO TID 08/13/16 [History] Albuterol Sulfate [Albuterol Inhaler] 2 puff IH Q6HR PRN 10/31/16 [History] Calcium Acetate [Phos-LO] 2,001 mg PO TIDWM 10/31/16 [History] HYDROcodone/Acet 5/325 mg [[place] 5-325 mg] 1 tab PO TID PRN 10/31/16 [History] Insulin Regular, Human [Novolin R] 5 - 10 unit IJ TID MDD per sliding scale [History] Oxygen 2 l NS CONT 10/31/16 [History] Doxycycline 100 mg PO BID #6 capsule 11/04/16 [Rx] Allergies/Adverse Reactions: Allergies levofloxacin Allergy (Severe, Verified 10/31/16 07:24) Itching - Notes to Outpatient Provider 1. Continue by mouth doxycycline 100 mg twice a day for 3 more days. Date of admission: 10/31/16 10:04 Primary care physician: Cecy Villalobos-[facility] Consults: 11/01/16 07:27 Consult to Nephrology [CONS] Stat Consulting Provider: [facility] Reason for Consult: ESRD need HD Call Completed: Yes 11/01/16 09:45 Consult to Dialysis [CONS] ONCE 11/01/16 10:41 Consult to Occupational Therapy [CONS] Routine Comment: Evaluate, develop and implement POC Reason for Consult: weakness Consult to Physical Therapy [CONS] Routine Comment: Evaluate, develop and implement POC Reason for Consult: Weakness 11/04/16 09:00 Consult to Dialysis [CONS] ONCE 11/05/16 09:00 Consult to Dialysis [CONS] ONCE Discharging clinician: Chica Barraza Anticipated date of discharge: 11/04/16 - Patient Status Disposition: Home, Self-Care Condition: Fair Functional capacity at discharge: uses cane/walker Overall status at discharge: patient is back to baseline - Discharge Instructions Follow Up With: Cecy Valdez MD [Primary Care Provider] - 11/11/16 9:30 am () - Diet and Activity Activity: increase activity as tolerated Diet: diabetic diet, other (Renal diet) Interval History: Ms. Richey is a 71 year old female patient with history of COPD, end-stage renal disease on hemodialysis, congestive heart failure, diabetes mellitus type 2, chronic respiratory failure on 2 L home oxygen presented to the ER with complaints of worsening shortness of breath for the past 3 days. She is not able to ambulate for even from one room to the next because of her significant shortness of breath. She has also been having some wheezing that is not relieved with her aggressive treatments for COPD. She has had some fever and cough without any sputum. She feels weak and tired and fatigued. She has not missed any dialysis sessions. She was dialyzed yesterday. She has not been hospitalized recently. Hospital course: Ms. Richey is a 71 year old female admitted for healthcare associated pneumonia and sepsis. She was treated with iv antibiotic vancomycin and cefepime. Antibiotic further deescalated to cefepime only as blood culture negative. After treatment, her symptoms has improved. Her fever has resolved. Her WBC has been down to normal range. Patient will discharge home with by mouth antibiotic doxycycline 100 mg by mouth twice a day for 3 more days. I saw and examined patient today. She is awake alert, oriented 3. Denies chest pain or shortness of breath. Has mild dry cough. Vitals are stable. Patient will discharge home with by mouth antibiotic, follow up with PCP as outpatient. - Time Spent with Patient Total time spent providing and/or coordinating discharge services: 40 minutes Greater than 30 minutes - Constitutional Vitals: Temp Pulse Resp BP Pulse Ox 98 F 85 20 136/57 99 11/04/16 13:30 11/04/16 06:51 11/04/16 13:30 11/04/16 13:30 11/04/16 06:51 General appearance: Present: cooperative, A&O X 3, morbidly obese, no acute distress, answers questions appropriately - Head Head exam: Present: atraumatic, normocephalic - Eye Eye exam: Present: PERRL, conjuntiva pink, sclera anicteric Pupils: Present: PERRL - Neck Neck exam general surgery: Present: supple, trachea midline. Absent: lymphadenopathy - Respiratory Respiratory exam: Present: CTAB. Absent: accessory muscle use, rales, rhonchi, wheezes - Cardiovascular Cardiovascular exam: Present: RRR, +S1, +S2. Absent: diastolic murmur, gallop, rubs, systolic murmur - GI/Abdominal GI/Abdominal exam: Present: normal bowel sounds, soft, no peritoneal signs. Absent: distended, tenderness - Extremities Exam Extremities exam: Present: warm, radial pulses palpable and symetrical. Absent : calf tenderness, cyanotic, pedal edema - Neurological Exam Neurological exam: Present: CN II-XII intact, oriented X3, no focal deficits. Absent: pronater drift, facial droop, speech deficit - Skin Skin exam: Present: dry, intact
== END 2016-11-04 18:01 | disposition home or self-care (01) | DRG 871 ==
LOC: 2ANU 07:21 → EMEROO 07:21 → 2ANU 11:22
PROVIDERS: ADMIT Internal Medicine; ATTEND Internal Medicine

== ENCOUNTER 2018-09-02 13:01 | Inpatient (IN) ==
[2018-09-02] MEDS ORDERED: Ipratropium/Albuterol Neb 3 ML IH ONE (13:30)
--- NOTE | 2018-09-02 13:32 | Emergency Department Note ---
Disposition Clinical Impression: End stage renal disease, Hypoxia Dyspnea Qualifiers: Dyspnea type: dyspnea on exertion Qualified Code(s): R06.09 - Other forms of dyspnea Pneumonia Qualifiers: Pneumonia type: due to unspecified organism Laterality: right Lung location: middle lobe of lung Qualified Code(s): J18.1 - Lobar pneumonia, unspecified organism Disposition: Admitted As Inpatient Condition: Fair Referrals: Cecy Valdez MD [Primary Care Provider] - Forms: ED Satisfaction Letter Time of Disposition: 15:58 SOB HPI - General Chief Complaint: ED Shortness of Breath/Dyspnea Stated Complaint: AMANDA Time Seen by Provider: 09/02/18 13:07 Source: patient Mode of arrival: private vehicle Limitations: no limitations Nursing Notes Reviewed: Yes Vital Signs Reviewed: Yes - History of Present Illness 72F with ESRD on dialysis, COPD, CHF, that presents with 2 days of increasing weakness, chills, shortness of breath. Normally on 3L of O2 at home but requiring 5L to maintain saturation. Completed dialysis this morning, they took off a normal amount, this did not help her symptoms. She is expiring through pursed lips and states that deep breaths make her chest hurt. She endorses chills. Does not make urine. Has diabetic neuropathy. States swelling in her legs is worse than normal. Does not have any inhalers for use at home. Was admitted in June for pneumonia and got inhalers then, but has never gotten refills. - Related Data Home Medications Medication Instructions Recorded Confirmed Ascorbic Acid [Vitamin C] 500 mg PO BID 01/16/15 07/01/17 Aspirin Enteric Coated [Aspirin EC] 81 mg PO HS 01/16/15 07/01/17 Atorvastatin [Lipitor] 40 mg PO HS 01/16/15 07/01/17 Cholecalciferol (Vitamin D3) 1,000 unit PO HS 01/16/15 07/01/17 [Vitamin D] Gabapentin [Neurontin] 200 mg PO HS 08/13/16 07/01/17 Glucosam/Chond/Hyalu/Cf Borate 1 tab PO HS 08/13/16 07/01/17 [Move Free Joint Health Tablet] Lactobacillus Combination No.8 1 cap PO QPM 08/13/16 07/01/17 [Adult Probiotic] Multivitamin [Multivitamins] 1 tab PO DAILY 08/13/16 07/01/17 [place]-3/Dha/Epa/Fish Oil [Fish Oil 1,000 mg PO HS 08/13/16 07/01/17 1,000 mg Softgel] Sodium Bicarbonate 650 mg PO TID 08/13/16 07/01/17 raNITIdine HCl [Zantac] 150 mg PO HS 08/13/16 07/01/17 Albuterol Sulfate [Albuterol 2 puff IH Q6HR PRN 10/31/16 07/01/17 Inhaler] Calcium Acetate [Phos-LO] 1,334 mg PO TIDWM 10/31/16 07/01/17 HYDROcodone/Acet 5/325 mg [[place] 1 tab PO TID PRN 10/31/16 07/01/17 5-325 mg] Insulin Regular, Human [Novolin R] 5 - 15 unit IJ TID MDD per sliding 10/31/16 07/01/17 scale Oxygen 2 l NS CONT 10/31/16 07/01/17 Fluticasone Propionate Nasal 1 spr NS DAILY PRN 07/01/17 07/01/17 [Flonase] Fluticasone/Salmeterol [Advair 1 puff IH BID 07/01/17 07/01/17 250-50 Diskus] Levothyroxine Sodium 50 mcg PO DAILY 07/01/17 07/01/17 Previous Rx's Medication Instructions Recorded HYDROcodone/Acet 5/325 mg [[place] 1 tab PO Q6H PRN 5 Days #20 tab 07/01/17 5-325 mg] Allergies Allergy/AdvReac Type Severity Reaction Status Date / Time levofloxacin Allergy Severe Itching Verified 06/19/18 05:20 Review of Systems: All systems ED: reviewed and negative except as stated. Constitutional: Denies: fever Reports: chills ENT ED: Denies: ear pain, throat pain Cardiovascular: Denies: palpitations Reports: chest pain with deep breath Respiratory: Denies: cough Reports: dyspnea Gastrointestinal: Denies: abdominal pain, nausea, vomiting, diarrhea, constipation Genitourinary: Does not make urine. Musculoskeletal: Denies: back pain, neck pain Integumentary: Denies: rash, abrasion Neurological: Denies: headache, numbness, paresthesias Reports: weakness Psychiatric: Denies: anxiety, depression Endocrine: Denies: fatigue, heat or cold intolerance Hematological/Lymphatic: Denies: easy bleeding, easy bruising Allergic/Immunologic: Denies: facial swelling, urticaria Past Medical History - Past Medical History Attestation: Yes The following information was validated with the patient. Medical history: Reports: arthritis, asthma, CHF, COPD, diabetes, dialysis, GERD, hyperlipidemia, hypertension, osteoporosis, renal disease, thyroid disease, other Surgical history: Reports: cataract, cholecystectomy, herniorrhaphy, other Psychiatric history: Reports: no psych history MANAGER COMPETITIVE INTELLIGENCE history: Reports: no MANAGER COMPETITIVE INTELLIGENCE history - Social History Smoking Status: Never smoker Smokeless Tobacco Status: No Alcohol use: Reports: none Drug use: Reports: none Physical Exam General: A&O x 3. No acute distress. Well developed, well nourished. Head: atraumatic, normocephalic. ENT: No conjunctival injection, no scleral icterus. PERRLA. EOMI. Oropharynx non- erythematous. mucous membranes moist. Neuro: No focal deficits, no speech deficit, no facial droop, mentating well. BUE/BLE Str 5/5. Pulm: Wheezes appreciated in right lobe, diminished lung sounds Cardio: RRR no m/r/g. Chest not tender to palpation. Abd: Soft, non-distended. Normoactive bowel sounds. Non-tender to palpation. No guarding. Non rigid. Extremities: Radial pulses 2+ christine, dorsalis pedis/posterior tibialis 2+ christine. Christine, 2+ pitting LE edema. No cyanosis, clubbing. Skin: warm, dry, intact. No rashes. Psych: Appropriate mood and affect. Answers questions appropriately. Cooperative with exam. - General Limitations: no limitations General appearance: alert, in no apparent distress Course Course Narrative: Ddx includes but is not limited to: PNA, CHF exacerbation, COPD exacerbation Vital Signs Temperature 98.4 F 09/02/18 13:10 Pulse Rate 98 09/02/18 13:10 Respiratory Rate 22 09/02/18 13:10 Blood Pressure 155/82 09/02/18 13:10 O2 Sat by Pulse Oximetry 94 09/02/18 13:10 Temperature 98.4 F 09/02/18 13:10 Pulse Rate 84 09/02/18 13:23 Respiratory Rate 18 09/02/18 14:40 Blood Pressure 155/82 09/02/18 13:10 O2 Sat by Pulse Oximetry 100 09/02/18 14:40 Oxygen Delivery Oxygen Delivery Nasal Cannula Shortness of Breath/Dyspnea - MDM Narrative Medical decision making narrative: Pts CXR was concerning for developing RML PNA, she is requiring more oxygen than her baseline home o2 requirement to maintain saturation. She will need to be admitted for PNA with hypoxia. Spoke with hospitalist, Dr. Castellanos, who agreed to accept the pt to his service. Patient was given an opportunity to ask questions at bedside and all of their concerns were addressed. Patient verbalized understanding and agreement with plan of care. Pt remained stable while in the department. - Medical Records Medical records reviewed: Yes I reviewed the patient's medical records. - Lab Data Lab results reviewed: Yes I reviewed the patient's lab results. Result diagrams: 09/02/18 13:27 09/02/18 13:27 Lab Results 09/02/18 09/02/18 09/02/18 Range/Units 13:27 13:27 13:27 WBC 14.0 H (4.3-11.1) K/mcL RBC 3.79 L (3.82-4.97) M/mcL Hgb 11.4 L (11.5-15.4) g/dL Hct 38.1 (35.3-44.9) % MCV 100.5 H (83.0-100.0) fL MCH 30.1 (28.0-33.3) pg MCHC 29.9 L (31.6-35.5) g/dL RDW 15.4 H (11.5-14.5) % Plt Count 248 (140-400) K/mcL MPV 10.4 (9.4-12.4) fL Immature Gran % 0.5 (0-4) % Seg Neutrophils % 84.8 % Lymphocytes % 7.7 % Monocytes % 6.2 % Eosinophils % 0.5 % Basophils % 0.3 % Neutrophils # 11.9 H (1.6-8.9) K/mcL Lymphocytes # 1.1 (0.6-4.6) K/mcL Monocytes # 0.9 (0.0-1.3) K/mcL Eosinophils # 0.1 (0.0-0.6) K/mcL Basophils # 0.0 (0.0-0.2) K/mcL PT 12.3 H (9.4-12.1) Seconds INR 1.1 APTT 30.2 (26.0-36.0) Seconds Sodium 136 (136-145) mEq/L Potassium 3.8 (3.5-5.1) mEq/L Chloride 98 (98-107) mEq/L Carbon Dioxide 25 (23-29) mEq/L BUN 23 (8-23) mg/dL Creatinine 3.79 H (0.60-1.20) mg/dL Est GFR ( Amer) 14 L (> 60) Est GFR (Non-Af Amer) 12 L (> 60) BUN/Creatinine Ratio 6 (6-26) Glucose 181 H (70-105) mg/dL Calculated Osmolality 290 (280-300) Lactic Acid (0.5-2.2) mmol/L Calcium 8.6 (8.6-10.3) mg/dL Total Bilirubin 0.5 (0.3-1.0) mg/dL Direct Bilirubin 0.2 (0.0-0.2) mg/dL Indirect Bilirubin 0.3 (0.0-1.2) mg/dL AST 15 (13-39) Units/L ALT 12 (7-52) Units/L Alkaline Phosphatase 198 H (34-104) Units/L Troponin I 0.06 H* (< 0.04) ng/mL B-Natriuretic Peptide (Less than 100) pg/mL Serum Total Protein 7.1 (6.4-8.9) g/dL Albumin 3.8 (3.5-5.7) g/dL Globulin 3.3 (2.4-3.5) g/dL Albumin/Globulin Ratio 1.2 (1.1-2.2) 09/02/18 09/02/18 Range/Units 13:27 13:27 WBC (4.3-11.1) K/mcL RBC (3.82-4.97) M/mcL Hgb (11.5-15.4) g/dL Hct (35.3-44.9) % MCV (83.0-100.0) fL MCH (28.0-33.3) pg MCHC (31.6-35.5) g/dL RDW (11.5-14.5) % Plt Count (140-400) K/mcL MPV (9.4-12.4) fL Immature Gran % (0-4) % Seg Neutrophils % % Lymphocytes % % Monocytes % % Eosinophils % % Basophils % % Neutrophils # (1.6-8.9) K/mcL Lymphocytes # (0.6-4.6) K/mcL Monocytes # (0.0-1.3) K/mcL Eosinophils # (0.0-0.6) K/mcL Basophils # (0.0-0.2) K/mcL PT (9.4-12.1) Seconds INR APTT (26.0-36.0) Seconds Sodium (136-145) mEq/L Potassium (3.5-5.1) mEq/L Chloride (98-107) mEq/L Carbon Dioxide (23-29) mEq/L BUN (8-23) mg/dL Creatinine (0.60-1.20) mg/dL Est GFR ( Amer) (> 60) Est GFR (Non-Af Amer) (> 60) BUN/Creatinine Ratio (6-26) Glucose (70-105) mg/dL Calculated Osmolality (280-300) Lactic Acid 1.6 (0.5-2.2) mmol/L Calcium (8.6-10.3) mg/dL Total Bilirubin (0.3-1.0) mg/dL Direct Bilirubin (0.0-0.2) mg/dL Indirect Bilirubin (0.0-1.2) mg/dL AST (13-39) Units/L ALT (7-52) Units/L Alkaline Phosphatase (34-104) Units/L Troponin I (< 0.04) ng/mL B-Natriuretic Peptide 1409 H (Less than 100) pg/mL Serum Total Protein (6.4-8.9) g/dL Albumin (3.5-5.7) g/dL Globulin (2.4-3.5) g/dL Albumin/Globulin Ratio (1.1-2.2) - Radiology Data Radiology results reviewed: Yes I reviewed the patient's radiology results. Chest X-Ray 09/02/18 13:30 IMPRESSION: 1. Developing focal opacity in the right mid lung. 2. Persistently enlarged cardiac silhouette. D/ / Blake Sprague MD / Blake Sprague MD Interpreting Provider: Blake Sprague MD - EKG Data EKG attestation: Yes I reviewed and interpreted this EKG. EKG results narrative: HR 93, rhythm irregular, axis left. OH 152, QRS 133 and prolonged, QTc 456. No evidence of ST elevation or depression
[2018-09-02 13:50] LABS: Basophils % 0.3 %; Eosinophils # 0.1 K/mcL (0.0-0.6); Eosinophils % 0.5 %; Hematocrit 38.1 % (35.3-44.9); Hemoglobin 11.4 g/dL (11.5-15.4); Immature Granulocytes % 0.5 % (0-4); Lymphocytes # 1.1 K/mcL (0.6-4.6); Lymphocytes % 7.7 %; Mean Corpuscular HGB Conc 29.9 g/dL (31.6-35.5); Mean Corpuscular Hemoglobin 30.1 pg (28.0-33.3); Mean Corpuscular Volume 100.5 fL (83.0-100.0); Mean Platelet Volume 10.4 fL (9.4-12.4); Monocytes # 0.9 K/mcL (0.0-1.3); Monocytes % 6.2 %; Neutrophils # 11.9 K/mcL (1.6-8.9); Platelet Count 248 K/mcL (140-400); Red Blood Count 3.79 M/mcL (3.82-4.97); Red Cell Distribution Width 15.4 % (11.5-14.5); Segmented Neutrophils % 84.8 %
[2018-09-02 14:01] LABS: INR 1.1; Prothrombin Time 12.3 Seconds (9.4-12.1)
[2018-09-02 14:03] LABS: Activated Partial Thrombo Time 30.2 Seconds (26.0-36.0)
[2018-09-02] MEDS ORDERED: methylPREDNISolone 125 MG/2 ML VIAL IVP ONE (14:07)
[2018-09-02 14:12] LABS: Albumin 3.8 g/dL (3.5-5.7); Albumin/Globulin Ratio 1.2 (1.1-2.2); Bilirubin,Direct 0.2 mg/dL (0.0-0.2); Bilirubin,Indirect 0.3 mg/dL (0.0-1.2); Bilirubin,Total 0.5 mg/dL (0.3-1.0); Calcium 8.6 mg/dL (8.6-10.3); Globulin 3.3 g/dL (2.4-3.5); Potassium 3.8 mEq/L (3.5-5.1); Total Protein 7.1 g/dL (6.4-8.9)
[2018-09-02 14:22] LABS: Troponin I 0.06 ng/mL (< 0.04)
--- NOTE | 2018-09-02 14:26 | Emergency Department Note ---
Disposition Clinical Impression: End stage renal disease Dyspnea Qualifiers: Dyspnea type: dyspnea on exertion Qualified Code(s): R06.09 - Other forms of dyspnea Disposition: Still a Patient Forms: ED Satisfaction Letter General Adult HPI - General Chief complaint: ED Shortness of Breath/Dyspnea Stated complaint: AMANDA Time Seen by Provider: 09/02/18 13:07 Source: patient Limitations: no limitations Nursing Notes Reviewed: Yes Vital Signs Reviewed: Yes - History of Present Illness HPI Narrative: ED attending attestation note: I examined this patient and my medical decision-making was reviewed with the emergency medicine resident Morena Nino. I agree with the documented findings, disposition and treatment plan as described except to the extent set forth below. Briefly: 72-year-old female end-stage renal disease 3 times a week dialysis last episode was this morning with a cough for regular of volume and showed a normal dialysis session. She has been having increasing shortness of breath dyspnea fatigue. Patient has decreased air movement scattered wheezes. Denies she said that her temperature was elevated normal she is 97% was 99 this morning. Slight discomfort in the anterior chest but no radiation to the arm or neck. Her AV shunt to the left upper extremity appears to be free and clear from infection or bleeding. Patient's EKG shows no acute ischemic changes. Patient's troponin was critically elevated at 0.06. Patient is going to be admitted for dyspnea increased oxygen requirement, and possibly new elevated troponin. 30 Miss critical care services provided for this patient. Pain Scale: 4 - Related Data Home Medications Medication Instructions Recorded Confirmed Ascorbic Acid [Vitamin C] 500 mg PO BID 01/16/15 07/01/17 Aspirin Enteric Coated [Aspirin EC] 81 mg PO HS 01/16/15 07/01/17 Atorvastatin [Lipitor] 40 mg PO HS 01/16/15 07/01/17 Cholecalciferol (Vitamin D3) 1,000 unit PO HS 01/16/15 07/01/17 [Vitamin D] Gabapentin [Neurontin] 200 mg PO HS 08/13/16 07/01/17 Glucosam/Chond/Hyalu/Cf Borate 1 tab PO HS 08/13/16 07/01/17 [Move Free Joint Health Tablet] Lactobacillus Combination No.8 1 cap PO QPM 08/13/16 07/01/17 [Adult Probiotic] Multivitamin [Multivitamins] 1 tab PO DAILY 08/13/16 07/01/17 [place]-3/Dha/Epa/Fish Oil [Fish Oil 1,000 mg PO HS 08/13/16 07/01/17 1,000 mg Softgel] Sodium Bicarbonate 650 mg PO TID 08/13/16 07/01/17 raNITIdine HCl [Zantac] 150 mg PO HS 08/13/16 07/01/17 Albuterol Sulfate [Albuterol 2 puff IH Q6HR PRN 10/31/16 07/01/17 Inhaler] Calcium Acetate [Phos-LO] 1,334 mg PO TIDWM 10/31/16 07/01/17 HYDROcodone/Acet 5/325 mg [[place] 1 tab PO TID PRN 10/31/16 07/01/17 5-325 mg] Insulin Regular, Human [Novolin R] 5 - 15 unit IJ TID MDD per sliding 10/31/16 07/01/17 scale Oxygen 2 l NS CONT 10/31/16 07/01/17 Fluticasone Propionate Nasal 1 spr NS DAILY PRN 07/01/17 07/01/17 [Flonase] Fluticasone/Salmeterol [Advair 1 puff IH BID 07/01/17 07/01/17 250-50 Diskus] Levothyroxine Sodium 50 mcg PO DAILY 07/01/17 07/01/17 Previous Rx's Medication Instructions Recorded HYDROcodone/Acet 5/325 mg [[place] 1 tab PO Q6H PRN 5 Days #20 tab 07/01/17 5-325 mg] Allergies Allergy/AdvReac Type Severity Reaction Status Date / Time levofloxacin Allergy Severe Itching Verified 06/19/18 05:20 Past Medical History - Past Medical History Medical history: Reports: arthritis, asthma, CHF, COPD, diabetes, dialysis, GERD, hyperlipidemia, hypertension, osteoporosis, renal disease, thyroid disease, other Surgical history: Reports: cataract, cholecystectomy, herniorrhaphy, other Psychiatric history: Reports: no psych history DIRECTOR DATA PROCESSING history: Reports: no DIRECTOR DATA PROCESSING history - Social History Smoking Status: Never smoker Smokeless Tobacco Status: No Alcohol use: Reports: none Drug use: Reports: none Physical Exam - General Limitations: no limitations General appearance: alert, in no apparent distress Course Vital Signs Temperature 98.4 F 09/02/18 13:10 Pulse Rate 98 09/02/18 13:10 Respiratory Rate 22 09/02/18 13:10 Blood Pressure 155/82 09/02/18 13:10 O2 Sat by Pulse Oximetry 94 09/02/18 13:10 Temperature 98.4 F 09/02/18 13:10 Pulse Rate 84 09/02/18 13:23 Respiratory Rate 18 09/02/18 13:23 Blood Pressure 155/82 09/02/18 13:10 O2 Sat by Pulse Oximetry 100 09/02/18 13:23 Oxygen Delivery Oxygen Delivery Nasal Cannula Medical Decision Making - Lab Data Result diagrams: 09/02/18 13:27 09/02/18 13:27 Lab Results 09/02/18 09/02/18 09/02/18 Range/Units 13:27 13:27 13:27 WBC 14.0 H (4.3-11.1) K/mcL RBC 3.79 L (3.82-4.97) M/mcL Hgb 11.4 L (11.5-15.4) g/dL Hct 38.1 (35.3-44.9) % MCV 100.5 H (83.0-100.0) fL MCH 30.1 (28.0-33.3) pg MCHC 29.9 L (31.6-35.5) g/dL RDW 15.4 H (11.5-14.5) % Plt Count 248 (140-400) K/mcL MPV 10.4 (9.4-12.4) fL Immature Gran % 0.5 (0-4) % Seg Neutrophils % 84.8 % Lymphocytes % 7.7 % Monocytes % 6.2 % Eosinophils % 0.5 % Basophils % 0.3 % Neutrophils # 11.9 H (1.6-8.9) K/mcL Lymphocytes # 1.1 (0.6-4.6) K/mcL Monocytes # 0.9 (0.0-1.3) K/mcL Eosinophils # 0.1 (0.0-0.6) K/mcL Basophils # 0.0 (0.0-0.2) K/mcL PT 12.3 H (9.4-12.1) Seconds INR 1.1 APTT 30.2 (26.0-36.0) Seconds Sodium 136 (136-145) mEq/L Potassium 3.8 (3.5-5.1) mEq/L Chloride 98 (98-107) mEq/L Carbon Dioxide 25 (23-29) mEq/L BUN 23 (8-23) mg/dL Creatinine 3.79 H (0.60-1.20) mg/dL Est GFR ( Amer) 14 L (> 60) Est GFR (Non-Af Amer) 12 L (> 60) BUN/Creatinine Ratio 6 (6-26) Glucose 181 H (70-105) mg/dL Calculated Osmolality 290 (280-300) Lactic Acid (0.5-2.2) mmol/L Calcium 8.6 (8.6-10.3) mg/dL Total Bilirubin 0.5 (0.3-1.0) mg/dL Direct Bilirubin 0.2 (0.0-0.2) mg/dL Indirect Bilirubin 0.3 (0.0-1.2) mg/dL AST 15 (13-39) Units/L ALT 12 (7-52) Units/L Alkaline Phosphatase 198 H (34-104) Units/L Troponin I 0.06 H* (< 0.04) ng/mL B-Natriuretic Peptide (Less than 100) pg/mL Serum Total Protein 7.1 (6.4-8.9) g/dL Albumin 3.8 (3.5-5.7) g/dL Globulin 3.3 (2.4-3.5) g/dL Albumin/Globulin Ratio 1.2 (1.1-2.2) 09/02/18 09/02/18 Range/Units 13:27 13:27 WBC (4.3-11.1) K/mcL RBC (3.82-4.97) M/mcL Hgb (11.5-15.4) g/dL Hct (35.3-44.9) % MCV (83.0-100.0) fL MCH (28.0-33.3) pg MCHC (31.6-35.5) g/dL RDW (11.5-14.5) % Plt Count (140-400) K/mcL MPV (9.4-12.4) fL Immature Gran % (0-4) % Seg Neutrophils % % Lymphocytes % % Monocytes % % Eosinophils % % Basophils % % Neutrophils # (1.6-8.9) K/mcL Lymphocytes # (0.6-4.6) K/mcL Monocytes # (0.0-1.3) K/mcL Eosinophils # (0.0-0.6) K/mcL Basophils # (0.0-0.2) K/mcL PT (9.4-12.1) Seconds INR APTT (26.0-36.0) Seconds Sodium (136-145) mEq/L Potassium (3.5-5.1) mEq/L Chloride (98-107) mEq/L Carbon Dioxide (23-29) mEq/L BUN (8-23) mg/dL Creatinine (0.60-1.20) mg/dL Est GFR ( Amer) (> 60) Est GFR (Non-Af Amer) (> 60) BUN/Creatinine Ratio (6-26) Glucose (70-105) mg/dL Calculated Osmolality (280-300) Lactic Acid 1.6 (0.5-2.2) mmol/L Calcium (8.6-10.3) mg/dL Total Bilirubin (0.3-1.0) mg/dL Direct Bilirubin (0.0-0.2) mg/dL Indirect Bilirubin (0.0-1.2) mg/dL AST (13-39) Units/L ALT (7-52) Units/L Alkaline Phosphatase (34-104) Units/L Troponin I (< 0.04) ng/mL B-Natriuretic Peptide 1409 H (Less than 100) pg/mL Serum Total Protein (6.4-8.9) g/dL Albumin (3.5-5.7) g/dL Globulin (2.4-3.5) g/dL Albumin/Globulin Ratio (1.1-2.2)
[2018-09-02] MEDS ORDERED: Aminoglycoside Consult 1 EACH MC ONE (16:08)
[2018-09-02] MEDS ORDERED: Naloxone 0.4 MG/ML INJ IVP PRN (17:03)
[2018-09-02] MEDS ORDERED: Dextrose Gel 15 GM/37.5 ML TUBE PO PRN ×2 (17:07)
[2018-09-02] MEDS ORDERED: D5% in Water 1,000 ML IVC PRN (17:07)
[2018-09-02] MEDS ORDERED: *HR* Dextrose 50 % in Water (Syg) 50 ML SYRINGE IVP PRN (17:07)
[2018-09-02] MEDS ORDERED: Ipratropium/Albuterol Neb 3 ML IH PRN (17:09)
--- NOTE | 2018-09-02 17:19 | Internal Med History&Physical ---
Date of Encounter: 09/02/18 Time of Encounter: 16:00 Internal Medicine - H&P: HPI Chief complaint: Shortness of breath Admitted From: Home Plans for Post Hospital Care: Home History of present illness: Ms. Richey is a 72 year old female present to ER for worsening shortness of breath for 1 day. Past medical history is significant for end-stage renal disease on hemodialysis, diabetes, asthma, hypertension Patient was recently hospitalized about 2 months ago for viral pneumonia. Since yesterday, patient feels sick, has nonproductive cough and shortness of breath. The shortness of breath is getting worse progressively. Patient had hemodialysis today and finished her dialysis but still feels shortness of breath. Patient denies fever, runny nose, sore throat, nausea. Patient has mild lower chest pain probably due to cough. Patient is on 2 L oxygen at home. When she get to ER, she needs 4 L oxygen to maintain oxygen saturation. Chest x-ray has been done, which shows developing right mid lung infiltrate. Patient has leukocytosis. Patient was treated with Solo-mendral and DuoNeb. After treatment, patient's symptoms has improved, oxygen requirement back to 2 L. Patient was admitted for further management. Past Med Surg Social Fam HX - Past Medical History Medical history: arthritis, asthma, CHF, COPD, diabetes, dialysis, GERD, h yperlipidemia, hypertension, osteoporosis, renal disease, thyroid disease, other Additional medical history: IDDM,osteoarthitis,steel from AV-fistula,kidney disease,onychomycosis, Psychiatric history: no psych history - Past Surgical History Surgical History: cataract, cholecystectomy, herniorrhaphy, other Additional surgical history: gastric by pass,T&A,l arm dialysis fistula,bypass around fistula,hernia stomach,angioplasty l arm, bypass l arm - Social History Smoking Status: Never smoker Smokeless Tobacco Status: No Alcohol use: none Drug use: none - Family History Father Living Status: Hx Family Cardiac Disorders: Yes Hx Family Cancer: Yes (Bone CA) Internal Medicine - H&P: Meds Ascorbic Acid [Vitamin C] 500 mg PO BID 01/16/15 [History] Aspirin Enteric Coated [Aspirin EC] 81 mg PO HS 01/16/15 [History] Atorvastatin [Lipitor] 40 mg PO HS 01/16/15 [History] Cholecalciferol (Vitamin D3) [Vitamin D] 1,000 unit PO HS 01/16/15 [History] Gabapentin [Neurontin] 200 mg PO HS 08/13/16 [History] Glucosam/Chond/Hyalu/Cf Borate [Move Free Joint Health Tablet] 1 tab PO HS 08/13/16 [History] Lactobacillus Combination No.8 [Adult Probiotic] 1 cap PO QPM 08/13/16 [History] Multivitamin [Multivitamins] 1 tab PO DAILY 08/13/16 [History] Davis-3/Dha/Epa/Fish Oil [Fish Oil 1,000 mg Softgel] 1,000 mg PO HS 08/13/16 [History] Sodium Bicarbonate 650 mg PO TID 08/13/16 [History] raNITIdine HCl [Zantac] 150 mg PO HS 08/13/16 [History] Albuterol Sulfate [Albuterol Inhaler] 2 puff IH Q6HR PRN 10/31/16 [History] Calcium Acetate [Phos-LO] 1,334 mg PO TIDWM 10/31/16 [History] HYDROcodone/Acet 5/325 mg [[place] 5-325 mg] 1 tab PO TID PRN 10/31/16 [History] Insulin Regular, Human [Novolin R] 5 - 15 unit IJ TID MDD per sliding scale 10/31/16 [History] Oxygen 2 l NS CONT 10/31/16 [History] Fluticasone Propionate Nasal [Flonase] 1 spr NS DAILY PRN 07/01/17 [History] Fluticasone/Salmeterol [Advair 250-50 Diskus] 1 puff IH BID 07/01/17 [History] HYDROcodone/Acet 5/325 mg [[place] 5-325 mg] 1 tab PO Q6H PRN 5 Days #20 tab 07/01/17 [Rx] Levothyroxine Sodium 50 mcg PO DAILY 07/01/17 [History] Allergy/AdvReac Type Severity Reaction Status Date / Time levofloxacin Allergy Severe Itching Verified 06/19/18 05:20 All Systems PM: A 10-system review of systems was performed and is negative for pertinent findings except as documented above in the HPI. - Constitutional Vitals: Temp Pulse Resp BP Pulse Ox 98.4 F 84 18 155/82 100 09/02/18 13:10 09/02/18 13:23 09/02/18 14:40 09/02/18 13:10 09/02/18 14:40 Exam: Pt is AAO x 3, in NAD, morbidly obese HEENT: NC/AT, PERRL Neck: Supple, no JVD, no LAD Lungs: Coarse breath sounds bilaterally, no wheezing/rhonchi/crackles Heart: S1S2, RRR Abd: Soft, nontender, BS present Ext: ROM wnl, no pedal edema Neuro: No focal deficit Internal Med - H&P Results - Labs CBC & Chem 7: 09/02/18 13:27 09/02/18 13:27 Labs: Short CBC 09/02/18 Range/Units 13:27 WBC 14.0 H (4.3-11.1) K/mcL Hgb 11.4 L (11.5-15.4) g/dL Hct 38.1 (35.3-44.9) % Plt Count 248 (140-400) K/mcL Neutrophils # 11.9 H (1.6-8.9) K/mcL BMP 09/02/18 13:27 Sodium 136 Potassium 3.8 Chloride 98 Carbon Dioxide 25 BUN 23 Creatinine 3.79 H Glucose 181 H Calcium 8.6 Cardiac Enzymes 09/02/18 Range/Units 13:27 Troponin I 0.06 H* (< 0.04) ng/mL Liver Function 09/02/18 Range/Units 13:27 Total Bilirubin 0.5 (0.3-1.0) mg/dL Direct Bilirubin 0.2 (0.0-0.2) mg/dL AST 15 (13-39) Units/L ALT 12 (7-52) Units/L Alkaline Phosphatase 198 H (34-104) Units/L Albumin 3.8 (3.5-5.7) g/dL - Impressions ITS Impressions Chest X-Ray 09/02/18 13:30 IMPRESSION: 1. Developing focal opacity in the right mid lung. 2. Persistently enlarged cardiac silhouette. D/ / Blake Sprague MD / Blake Sprague MD Interpreting Provider: Blake Sprague MD - Assessment and Plan (1) COPD (chronic obstructive pulmonary disease) Current Visit: No Status: Chronic Assessment and plan: Patient is on home oxygen. No wheezing at this point. Will place patient on DuoNeb as needed and scheduled. Continue home medication Advair Discus. Qualifiers: COPD type: unspecified COPD Qualified Code(s): J44.9 - Chronic obstructive pulmonary disease, unspecified (2) ESRD (end stage renal disease) on dialysis Current Visit: No Status: Chronic Assessment and plan: Continue hemodialysis. Patient had finished today's hemodialysis. No signs of fluid overload at this point. - Nephrology consult called (3) Hypothyroidism Current Visit: No Status: Chronic Assessment and plan: Continue home medications after verification Qualifiers: Hypothyroidism type: acquired Qualified Code(s): E03.9 - Hypothyroidism, unspecified (4) DVT prophylaxis Current Visit: No Status: Acute Assessment and plan: Heparin SC (5) Type 2 diabetes mellitus Current Visit: No Status: Chronic Assessment and plan: Continue place patient on sliding scale coverage Qualifiers: Diabetes mellitus complication status: with kidney complications Diabetes mellitus complication detail: with chronic kidney disease Chronic kidney disease stage: stage 5, not on chronic dialysis Qualified Code(s): E11.22 - Type 2 diabetes mellitus with diabetic chronic kidney disease; N18.5 - Chronic kidney disease, stage 5; 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 Continuous pulse oximetry monitoring (8) HCAP (healthcare-associated pneumonia) Current Visit: No Status: Acute Assessment and plan: Patient has a recent hospitalization. Patient has leukocytosis, chest x-ray shows right mid lung infiltrate. We will treat patient as healthcare associated pneumonia. - Place patient on azithromycin, Vanco, and cefepime - Respiratory viral panel - MRSA screen - Legionella and strep pneumo Ags. (9) Essential hypertension Current Visit: No Status: Chronic Assessment and plan: Continue home medication after verification. Place patient on hydralazine IV as needed. (10) Elevated troponin Current Visit: No Status: Chronic Assessment and plan: Patient has a mild elevated troponin with history of end-stage renal disease. EKG shows no significant ST change. Mild chest pain likely due to cough. - Continue cardiac monitoring. - Track 3 sets of troponin to see the trend. (11) Irregular heartbeat Current Visit: Yes Status: Acute Assessment and plan: Undetermined heart rhythm. Similar with EKG on 06/19/18. Likely sinus rhythm with multiple frequent PACs. - Continue cardiac monitoring - We will consult cardiology for further management - Check magnesium and TSH - Time Spent With Patient Total time spent is greater than 50% in coordination of care (as documented) at patient's floor/unit and/or counseling patient: 40 minutes Greater than 35 minutes
[2018-09-02] MEDS ORDERED: Azithromycin 500 MG in D5% in Water 250 ML IVPB SCH (18:00)
[2018-09-02] MEDS ORDERED: Vancomycin 1 EACH in 0.9 % Sodium Chloride 250 ML IVPB SCH (18:00)
[2018-09-02] MEDS ORDERED: Cefepime HCl 1,000 MG in Water for inj. (sterile) 20 ML 10 ML IVP SCH ×2 (18:00→18:45)
[2018-09-02] MEDS: Lactobacillus 1 EACH CAP.SPRINK PO SCH (18:51)
[2018-09-02] MEDS: *HR* Heparin 5,000 UNIT/ML VIAL SQ SCH (18:51)
[2018-09-02] MEDS: Aspirin Enteric Coated 81 MG Tablet PO SCH (20:36)
[2018-09-02] MEDS: Insulin LISPRO 300 UNITS/3 ML VIAL SQ SCH (20:36)
[2018-09-02] MEDS: Budesonide/Formoterol 80/4.5 MDI IH SCH (22:11)
[2018-09-02] MEDS: Ipratropium/Albuterol Neb 3 ML IH SCH (22:12)
[2018-09-03] MEDS ORDERED: Gabapentin 100 MG CAPSULE PO PRN (03:29)
[2018-09-03] MEDS: Ipratropium/Albuterol Neb 3 ML IH SCH ×4 (03:35→21:53)
[2018-09-03] MEDS: *HR* HYDROcodone/Acet 5/325 mg TABLET PO PRN ×2 (03:55→22:24)
[2018-09-03] MEDS: *HR* Heparin 5,000 UNIT/ML VIAL SQ SCH (03:55)
[2018-09-03 04:20] LABS: Basophils % 0.1 %; Hematocrit 34.1 % (35.3-44.9); Hemoglobin 10.1 g/dL (11.5-15.4); Immature Granulocytes % 0.7 % (0-4); Lymphocytes # 0.4 K/mcL (0.6-4.6); Lymphocytes % 3.3 %; Mean Corpuscular HGB Conc 29.6 g/dL (31.6-35.5); Mean Corpuscular Hemoglobin 29.6 pg (28.0-33.3); Mean Platelet Volume 10.7 fL (9.4-12.4); Monocytes # 0.3 K/mcL (0.0-1.3); Monocytes % 2.4 %; Platelet Count 222 K/mcL (140-400); Red Blood Count 3.41 M/mcL (3.82-4.97); Red Cell Distribution Width 15.2 % (11.5-14.5); Segmented Neutrophils % 93.5 %
[2018-09-03 04:39] LABS: Calcium 7.9 mg/dL (8.6-10.3); Potassium 4.4 mEq/L (3.5-5.1)
[2018-09-03 05:04] LABS: Hepatitis B Surface Antigen Nonreactive (Nonreactive)
--- NOTE | 2018-09-03 07:06 | Event Note ---
Date of Encounter: 09/03/18 Time of Encounter: 04:55 Alerted by pts. nurse LANDON Roy that the pts. troponin was now 2.86, up from 0.07 and 0.06 previously. Pt. has denied CP or SOB all night. Pt. admitted for COPD, ESRD on dialysis, hypothyroidism, HCAP, and acute respiratory failure with hypoxia. Nurse instructed to continue monitoring pt. very closely and alert me immediately of any adverse changes.
[2018-09-03] MEDS ORDERED: Cefepime HCl 1,000 MG in Water for inj. (sterile) 20 ML 10 ML IVP ONE (07:17)
--- NOTE | 2018-09-03 07:24 | Internal Med Progress Note ---
Hospitalist Progress Note - Encounter Date of Encounter: 09/03/18 Time of Encounter: 07:22 - Subjective Interval History: Pt feels SOB today with exertion (walking, showering, etc), but does report slight improvement from yesterday. No SOB at rest or while talking. Denies N/V/D, and no chest pain today. - Exam Vitals: Temp Pulse Resp BP Pulse Ox 97.6 F 86 20 163/78 100 09/03/18 07:18 09/03/18 07:18 09/03/18 07:18 09/03/18 07:18 09/03/18 07:18 Exam: Pt is AAO x 3, in NAD, obese, talking in complete sentences Lungs: Coarse breath sounds bilaterally, no wheezing/rhonchi/crackles Heart: S1S2, RRR Abd: Soft, nontender Ext: ROM wnl, no pedal edema Neuro: No focal deficit - Summary of Assessment and Plan Summary of Assessment and Plan: Delilah Richey is a 72 F w hx COPD, HFpEF, ESRD on HD, morbid obesity, who p/w SOB and CP, found to have hypoxia, leukocytosis, CXR w RML opacity, and elevated troponin, concerning for HCAP causing COPD exacerbation as well as possible ischemia. HCAP: CXR w RML opacity, recent hospitalization 2 months ago - UAg's if pt makes urine - RVP pending - BCx x2 pending - continue empiric vanc - d/c cefepime - start Rocephin 2g daily - change azithro to 500 PO COPD in acute exacerbation: - nebs q4h&prn - prednisone 40 daily x5d, s/p solumedrol 125 in ED - azithromycin 500 po daily x5d - home inhalers Acute on chronic hypoxic respiratory failure: initially up to 5L in ED to [place] in sats >88% but now maintaining on home 2L O2 - home supplemental O2 - IS - treat cause as above - walk test prior to discharge NSTEMI: multiple risk factors, and pt had CP yesterday attributed to cough but now with trop up to ~3 - trend trops - tele - hep gtt - home ASA 81, Lipitor 40 - Cardio consult Morbid Obesity: BMI 50 Hypothyroidism: home synthroid: DM2: c/b renal disease and neuropathy, continue basal and SSI HTN: home meds PPx: sqh FEN: regular, no MIVF Lines: PIV Consults: Cardio Code: Full Dispo: patient requires inpatient eval and management at this time. Anticipate 2-3 days. Will be homegoing Internal Medicine: Result - Labs CBC & Chem 7: 09/03/18 07:49 09/03/18 03:51 Labs: Short CBC 09/02/18 09/03/18 Range/Units 13:27 03:51 WBC 14.0 H 11.8 H (4.3-11.1) K/mcL Hgb 11.4 L 10.1 L (11.5-15.4) g/dL Hct 38.1 34.1 L (35.3-44.9) % Plt Count 248 222 (140-400) K/mcL Neutrophils # 11.9 H 11.0 H (1.6-8.9) K/mcL BMP 09/02/18 09/03/18 13:27 03:51 Sodium 136 133 L Potassium 3.8 4.4 Chloride 98 99 Carbon Dioxide 25 25 BUN 23 36 H Creatinine 3.79 H 4.70 H Glucose 181 H 390 H Calcium 8.6 7.9 L Cardiac Enzymes 09/02/18 09/02/18 09/03/18 Range/Units 13:27 20:15 03:51 Troponin I 0.06 H* 0.07 H* 2.86 H* (< 0.04) ng/mL Liver Function 09/02/18 Range/Units 13:27 Total Bilirubin 0.5 (0.3-1.0) mg/dL Direct Bilirubin 0.2 (0.0-0.2) mg/dL AST 15 (13-39) Units/L ALT 12 (7-52) Units/L Alkaline Phosphatase 198 H (34-104) Units/L Albumin 3.8 (3.5-5.7) g/dL - ABG Interpretation ABG results: PT/INR, D-dimer PT 12.3 Seconds (9.4-12.1) H 09/02/18 13:27 - Impressions Impressions Chest X-Ray 09/02/18 13:30 IMPRESSION: 1. Developing focal opacity in the right mid lung. 2. Persistently enlarged cardiac silhouette. D/ / Blake Sprague MD / Blake Sprague MD Interpreting Provider: Blake Sprague MD Consult Discharge Plan - Plan Referrals: Cecy Valdez MD [Primary Care Provider] -
[2018-09-03] MEDS ORDERED: *HR* Heparin 5,000 UNIT/ML VIAL IVP PRN (07:31)
[2018-09-03] MEDS ORDERED: *HR* Heparin 5,000 UNIT/ML VIAL IVP ONE (07:31)
[2018-09-03 08:15] LABS: Hematocrit 35.8 % (35.3-44.9); Hemoglobin 10.5 g/dL (11.5-15.4); Mean Corpuscular HGB Conc 29.3 g/dL (31.6-35.5); Mean Corpuscular Hemoglobin 29.5 pg (28.0-33.3); Mean Corpuscular Volume 100.6 fL (83.0-100.0); Mean Platelet Volume 10.7 fL (9.4-12.4); Platelet Count 245 K/mcL (140-400); Red Blood Count 3.56 M/mcL (3.82-4.97); Red Cell Distribution Width 15.1 % (11.5-14.5)
[2018-09-03 08:30] LABS: Heparin anti-factor XA UFH 0.04 IU/mL (0.30-0.70); INR 1.1; Prothrombin Time 12.6 Seconds (9.4-12.1)
--- NOTE | 2018-09-03 08:30 | Cardiology Consult Note ---
Date of Encounter: 09/03/18 Time of Encounter: 08:30 Assessment and Plan (1) Elevated troponin Current Visit: Yes Status: Acute Probably due to pneumonia / ESRD. Continue to follow and check TTE. Agree with heparin drip for 24-48 hours. (2) ESRD (end stage renal disease) on dialysis Current Visit: No Status: Chronic Continue dialysis (3) Morbid obesity with BMI of 50.0-59.9, adult Current Visit: No Status: Chronic (4) HCAP (healthcare-associated pneumonia) Current Visit: No Status: Acute continue treatment per primary team Discussion w patient/family: The assessment and plan as outlined above was discussed with the patient and/or family members who expressed understanding and agreement. All questions were answered. Thank you for involving us in the care of your patient. Please call with any questions. History of Present Illness Consult date: 09/03/18 Consult reason: abn ekg and elevated troponin Chief complaint: dyspnea History of present illness: Ms. Richey is a 72 year old female with end-stage renal disease on hemodialysis, diabetes, asthma, hypertension, COPD, no known CAD presents with dyspnea on exertion and findings of PNA on CXR with leukocytosis. She was recently hospit alized, so technically HCAP. Overnight her symptoms improved with duonebs, steroids and antibiotics. Past Med Surg Social Fam HX - Past Medical History Medical history: arthritis, asthma, CHF, COPD, diabetes, dialysis, GERD, hyperli pidemia, hypertension, osteoporosis, renal disease, thyroid disease, other Additional medical history: IDDM,osteoarthitis,steel from AV-fistula,kidney disease,onychomycosis, Psychiatric history: no psych history - Past Surgical History Surgical History: cataract, cholecystectomy, herniorrhaphy, other Additional surgical history: gastric by pass,T&A,l arm dialysis fistula,bypass around fistula,hernia stomach,angioplasty l arm, bypass l arm - Social History Smoking Status: Never smoker Smokeless Tobacco Status: No Alcohol use: none Drug use: none - Family History Father Living Status: Hx Family Cardiac Disorders: Yes Hx Family Cancer: Yes (Bone CA) Medications and Allergies Atorvastatin [Lipitor] 40 mg PO QPM 01/16/15 [History] Gabapentin [Neurontin] 100 - 300 mg PO HS PRN 08/13/16 [History] Lactobacillus Combination No.8 [Adult Probiotic] 1 cap PO QPM 08/13/16 [History] Multivitamin [Multivitamins] 1 tab PO DAILY 08/13/16 [History] Sodium Bicarbonate 650 mg PO TID 08/13/16 [History] Calcium Acetate [Phos-LO] 2,001 mg PO TIDWM 10/31/16 [History] Insulin Regular, Human [Novolin R] 0 unit SQ TIDAC PRN 10/31/16 [History] Oxygen 2 l NS HS 10/31/16 [History] Fluticasone Propionate Nasal [Flonase] 2 spr NS BID PRN 07/01/17 [History] Fluticasone/Salmeterol [Advair 250-50 Diskus] 1 puff IH BID 07/01/17 [History] HYDROcodone/Acet 5/325 mg [[place] 5-325 mg] 1 tab PO Q6H PRN 5 Days #20 tab 07/01/17 [Rx] Aspirin [Adult Aspirin Regimen] 81 mg PO QPM 09/02/18 [History] Calcium Acetate [Phos-LO] 1,334 mg PO DAILY 09/02/18 [History] Ergocalciferol (VITAMIN D2) [Vitamin D2] 50,000 unit PO SA 09/02/18 [History] Levothyroxine Sodium 50 mcg PO QAM 09/02/18 [History] Psyllium Husk [Fiber] 0.52 gm PO DAILY 09/02/18 [History] Silver Sulfadiazine [Ssd] 1 appl NS HS 09/02/18 [History] raNITIdine HCl [Zantac] 300 mg PO QPM 09/02/18 [History] Allergy/AdvReac Type Severity Reaction Status Date / Time levofloxacin Allergy Severe "HIVES, Verified 09/02/18 21:06 ITCHING, BURNING" All Systems Review: The remainder of the systems were reviewed and are negative - Constitutional Constitutional: no chills, no fever(s) - EENT Eyes: no blurred vision, no loss of vision Nose, mouth and throat: no bleeding gums, no epistaxis - Cardiovascular Cardiovascular: dyspnea at rest, dyspnea on exertion, no chest pain at rest, no chest pain with exertion - Respiratory Respiratory: no hemoptysis, no wheezing - Gastrointestinal Gastrointestinal: no hematemesis, no hematochezia - Genitourinary Genitourinary: no hematuria, no nocturia - Musculoskeletal Musculoskeletal: no muscle cramps, no muscle weakness - Integumentary Integumentary: no rash, no unusual bruising - Neurological Neurological: no syncope, no tingling - Psychiatric Psychiatric: no hallucinations, no panic attacks - Hematological/Lymphatic Hematologic/Lymphatic: no easy bleeding, no easy bruising Physical Examination Vital Signs, Last 4 Hours Temp Pulse Resp BP Pulse Ox 09/03/18 07:18 97.6 F 86 20 163/78 100 General: Conversant HEENT: Atraumatic Neck: No JVD Cardiac: Reg Rate and Rhythm Lungs: Other (bibasilar crackles, RML crackles) Neuro: Alert and responsive Skin: No rashes noted on visualized skin Musculoskeletal: No Chest Wall Tenderness Extremities: Other (1+ edema right (chronic)) Results 09/03/18 07:49 09/03/18 03:51 Lab Results 09/02/18 09/02/18 09/02/18 13:27 13:27 13:27 WBC 14.0 H Hgb 11.4 L Hct 38.1 Plt Count 248 INR 1.1 APTT 30.2 Sodium 136 Potassium 3.8 Chloride 98 Carbon Dioxide 25 BUN 23 Creatinine 3.79 H Glucose 181 H Calcium 8.6 Magnesium Total Bilirubin 0.5 AST 15 ALT 12 Alkaline Phosphatase 198 H Troponin I 0.06 H* B-Natriuretic Peptide TSH 09/02/18 09/02/18 09/03/18 13:27 20:15 03:51 WBC Hgb Hct Plt Count INR APTT Sodium Potassium Chloride Carbon Dioxide BUN Creatinine Glucose Calcium Magnesium Total Bilirubin AST ALT Alkaline Phosphatase Troponin I 0.07 H* 2.86 H* B-Natriuretic Peptide 1409 H TSH 09/03/18 09/03/18 09/03/18 03:51 03:51 03:51 WBC 11.8 H Hgb 10.1 L Hct 34.1 L Plt Count 222 INR APTT Sodium 133 L Potassium 4.4 Chloride 99 Carbon Dioxide 25 BUN 36 H Creatinine 4.70 H Glucose 390 H Calcium 7.9 L Magnesium 2.0 Total Bilirubin AST ALT Alkaline Phosphatase Troponin I B-Natriuretic Peptide TSH 1.098 09/03/18 07:49 WBC 11.6 H Hgb 10.5 L Hct 35.8 Plt Count 245 INR APTT Sodium Potassium Chloride Carbon Dioxide BUN Creatinine Glucose Calcium Magnesium Total Bilirubin AST ALT Alkaline Phosphatase Troponin I B-Natriuretic Peptide TSH - EKG Interpretation EKG results cardiology: personally reviewed, sinus rhythm (pacs, signiifcant artifact) Consult Discharge Plan - Plan Referrals: Cecy Valdez MD [Primary Care Provider] -
[2018-09-03] MEDS: predniSONE 20 MG TABLET PO SCH (08:34)
[2018-09-03] MEDS: Azithromycin 250 MG TABLET PO SCH (08:34)
[2018-09-03] MEDS: cefTRIAXone 2,000 MG in Water for inj. (sterile) 20 ML 20 ML IVP SCH (08:35)
[2018-09-03] MEDS: Insulin LISPRO 300 UNITS/3 ML VIAL SQ SCH ×4 (08:36→20:19)
[2018-09-03] MEDS: Heparin 25,000 UNIT/250 ML D5W 25,000 UNIT/250 ML IV.SOLN IVC SCH (08:56)
[2018-09-03] MEDS ORDERED: cefTRIAXone 2,000 MG in 0.9 % Sodium Chloride Mini Bag 100 ML IVPB SCH (09:00)
[2018-09-03] MEDS ORDERED: Azithromycin 500 MG in D5% in Water 250 ML IVPB SCH (09:00)
[2018-09-03] MEDS ORDERED: Albuterol 2.5 MG/3 ML NEBULIZER IH PRN (09:37)
[2018-09-03] MEDS: Budesonide/Formoterol 80/4.5 MDI IH SCH ×2 (10:14→21:53)
--- NOTE | 2018-09-03 15:07 | Nephrology Consult Note ---
Date of Encounter: 09/03/18 Time of Encounter: 15:07 Past Med Surg Social Fam HX - Past Medical History Medical history: arthritis, asthma, CHF, COPD, diabetes, dialysis, GERD, hyperlipidemia, hypertension, osteoporosis, renal disease, thyroid disease, other Additional medical history: IDDM,osteoarthitis,steel from AV-fistula,kidney disease,onychomycosis, Psychiatric history: no psych history - Past Surgical History Surgical History: cataract, cholecystectomy, herniorrhaphy, other Additional surgical history: gastric by pass,T&A,l arm dialysis fistula,bypass around fistula,hernia stomach,angioplasty l arm, bypass l arm - Social History Smoking Status: Never smoker Smokeless Tobacco Status: No Alcohol use: none Drug use: none - Family History Father Living Status: Hx Family Cardiac Disorders: Yes Hx Family Cancer: Yes (Bone CA) Medications and Allergies Atorvastatin [Lipitor] 40 mg PO QPM 01/16/15 [History] Gabapentin [Neurontin] 100 - 300 mg PO HS PRN 08/13/16 [History] Lactobacillus Combination No.8 [Adult Probiotic] 1 cap PO QPM 08/13/16 [History] Multivitamin [Multivitamins] 1 tab PO DAILY 08/13/16 [History] Sodium Bicarbonate 650 mg PO TID 08/13/16 [History] Calcium Acetate [Phos-LO] 2,001 mg PO TIDWM 10/31/16 [History] Insulin Regular, Human [Novolin R] 0 unit SQ TIDAC PRN 10/31/16 [History] Oxygen 2 l NS HS 10/31/16 [History] Fluticasone Propionate Nasal [Flonase] 2 spr NS BID PRN 07/01/17 [History] Fluticasone/Salmeterol [Advair 250-50 Diskus] 1 puff IH BID 07/01/17 [History] HYDROcodone/Acet 5/325 mg [[place] 5-325 mg] 1 tab PO Q6H PRN 5 Days #20 tab [Rx] Aspirin [Adult Aspirin Regimen] 81 mg PO QPM 09/02/18 [History] Calcium Acetate [Phos-LO] 1,334 mg PO DAILY 09/02/18 [History] Ergocalciferol (VITAMIN D2) [Vitamin D2] 50,000 unit PO SA 09/02/18 [History] Levothyroxine Sodium 50 mcg PO QAM 09/02/18 [History] Psyllium Husk [Fiber] 0.52 gm PO DAILY 09/02/18 [History] Silver Sulfadiazine [Ssd] 1 appl NS HS 09/02/18 [History] raNITIdine HCl [Zantac] 300 mg PO QPM 09/02/18 [History] Allergy/AdvReac Type Severity Reaction Status Date / Time levofloxacin Allergy Severe "HIVES, Verified 09/02/18 21:06 ITCHING, BURNING" Exam - Vital Signs Vital signs: Initial Vital Signs Temp Pulse Resp BP Pulse Ox 98.4 F 98 22 155/82 94 09/02/18 13:10 09/02/18 13:10 09/02/18 13:10 09/02/18 13:10 09/02/18 13:10 Vital Signs - Last 8 Hours Temp Pulse Resp BP Pulse Ox 09/03/18 14:59 98.1 F 87 20 161/77 99 09/03/18 10:53 97.9 F 89 20 145/84 99 09/03/18 10:16 18 100 09/03/18 07:18 97.6 F 86 20 163/78 100 Intake and Output 09/02/18 09/03/18 09/03/18 23:59 07:59 15:59 Intake Total 1080 / 1080 360 / 360 Output Total 0 / 0 0 / 0 Balance 1080 / 1080 0 / 0 360 / 360 Intake: IV Fluids 1050 / 1050 Maxipime 1,000 MG In Water for 300 / 300 inj. (sterile) 10 ML @ 300 mls/ hr IVP Q24H [facility] Rx#:[id number] Zithromax 500 mg In Dextrose 5% 250 / 250 250 ML @ 252 mls/hr IVPB Q24H [facility] Rx#:[id number] Vancocin 1,750 MG In 0.9 % 500 / 500 Sodium Chloride 500 ML @ 333.3 mls/hr IVPB ONCE ONE Rx#: [id number] Oral 30 / 30 360 / 360 Output: Urine 0 / 0 0 / 0 Other: Meal Lunch Percent of Meal Consumed 75% Weight 113.4 kg 115.5 kg Blood Glucose* 348 329 332 Patient Weight 09/03/18 23:59 Weight 115.5 kg Results - Lab Results 09/03/18 07:49 09/03/18 03:51 Most recent lab results Calcium 7.9 mg/dL (8.6-10.3) L 09/03/18 03:51 Magnesium 2.0 mg/dL (1.6-2.6) 09/03/18 03:51 Consult Discharge Plan - Plan Referrals: Cecy Valdez MD [Primary Care Provider] -
[2018-09-03] MEDS ORDERED: Cefepime HCl 1,000 MG in Water for inj. (sterile) 20 ML 10 ML IVP SCH (16:00)
[2018-09-03] MEDS: Lactobacillus 1 EACH CAP.SPRINK PO SCH (17:25)
[2018-09-03] MEDS ORDERED: Perflutren Lipid Microsphere 1.3 ML in 0.9 % Sodium Chloride 8.7 ML IVP ONE (18:15)
--- NOTE | 2018-09-03 18:16 | Event Note ---
Date of Encounter: 09/03/18 Time of Encounter: 18:14 Went by the patient's room twice. Her is on the bed, but the patient is in the bathroom. No acute need for dialysis. Patient is due for dialysis on Friday. Full note to follow.
[2018-09-03] MEDS: Gabapentin 100 MG CAPSULE PO SCH (20:15)
[2018-09-03] MEDS: Aspirin Enteric Coated 81 MG Tablet PO SCH (20:15)
--- NOTE | 2018-09-03 23:20 | Electrocardiograph Report ---
[address] [address] Test Date: 2018-09-02 Pat Name: Delilah Richey Department: [id number] Room: 2A22 Gender: F Four H Agent: : [id number] Requested By: Morena Nino Order Number: [id number] Reading MD: Darrell Michael Measurements Intervals [place] Rate: 93 P: 24 [place]: 152 QRS: -54 QRSD: 133 T: 56 QT: 366 QTc: 456 Interpretive Statements Possible ectopic atrial rhythm RBBB and LAFB Electronically Signed On 09-03-2018 23:18:35 EDT by Darrell Michael
[2018-09-03] MEDS: *HR* Heparin 5,000 UNIT/ML VIAL IVP PRN (23:51)
[2018-09-04] MEDS: Ipratropium/Albuterol Neb 3 ML IH SCH ×4 (03:29→21:29)
[2018-09-04 06:19] LABS: Hematocrit 33.5 % (35.3-44.9); Mean Corpuscular HGB Conc 29.9 g/dL (31.6-35.5); Mean Corpuscular Hemoglobin 29.7 pg (28.0-33.3); Mean Corpuscular Volume 99.4 fL (83.0-100.0); Mean Platelet Volume 10.7 fL (9.4-12.4); Platelet Count 267 K/mcL (140-400); Red Blood Count 3.37 M/mcL (3.82-4.97); Red Cell Distribution Width 15.1 % (11.5-14.5)
[2018-09-04 06:38] LABS: Calcium 8.1 mg/dL (8.6-10.3); Potassium 4.6 mEq/L (3.5-5.1)
[2018-09-04] MEDS: Azithromycin 250 MG TABLET PO SCH (08:05)
[2018-09-04] MEDS: predniSONE 20 MG TABLET PO SCH (08:05)
[2018-09-04] MEDS: cefTRIAXone 2,000 MG in Water for inj. (sterile) 20 ML 20 ML IVP SCH (08:06)
[2018-09-04] MEDS: Insulin LISPRO 300 UNITS/3 ML VIAL SQ SCH ×3 (08:06→17:00)
[2018-09-04] MEDS: Heparin 25,000 UNIT/250 ML D5W 25,000 UNIT/250 ML IV.SOLN IVC SCH (08:07)
--- NOTE | 2018-09-04 09:25 | Cardiology Progress Note ---
Date of Encounter: 09/04/18 Time of Encounter: 09:00 Assessment and Plan (1) NSTEMI (non-ST elevated myocardial infarction) Current Visit: Yes Status: Acute Demand ischemia. Probably due to pneumonia / ESRD. Echo shows LVEF 50-55%. Mild segmental left ventricular systolic dysfunction. Mild concentric left ventricular hypertrophy. Moderate left ventricular diastolic dysfunction. Moderately dilated left atrium. Mildly dilated right ventricle with normal function. Mild mitral regurgitation. Mild tricuspid regurgitation. No pulmonary hypertension. Continue to trend troponin till peak. Possible cath once pneumonia is resolved (2) HCAP (healthcare-associated pneumonia) Current Visit: No Status: Acute continue treatment per primary team (3) ESRD (end stage renal disease) on dialysis Current Visit: No Status: Chronic Continue dialysis (4) Morbid obesity with BMI of 50.0-59.9, adult Current Visit: No Status: Chronic Discussion w patient/family: The assessment and plan as outlined above was discussed with the patient and/or family members who expressed understanding and agreement. All questions were answered. Thank you for involving us in the care of your patient. Please call with any questions. Subjective Principal diagnosis: Pneumonia; elevated troponin Interval history: Feels less short of breath Objective Vital Signs, Last 4 Hours Temp Pulse Resp BP Pulse Ox 09/04/18 07:09 97.8 F 88 20 151/81 100 General: Conversant Neck: No JVD Cardiac: Reg Rate and Rhythm, Normal S1 and S2, No Murmur Lungs: Normal Breath Sounds, No Wheeze, Rales, Rhonchi Neuro: Alert and responsive Abdomen: Soft Musculoskeletal: No Chest Wall Tenderness Extremities: No Edema Results 09/04/18 06:03 09/04/18 06:03 Lab Results 09/04/18 09/04/18 06:03 06:03 WBC 11.7 H Hgb 10.0 L Hct 33.5 L Plt Count 267 Sodium 138 Potassium 4.6 Chloride 99 Carbon Dioxide 22 L BUN 62 H Creatinine 6.40 H Glucose 247 H Calcium 8.1 L Consult Discharge Plan - Plan Referrals: Cecy Valdez MD [Primary Care Provider] - 09/11/18 11:45 am (Please follow up as schedule...)
[2018-09-04] MEDS ORDERED: 0.9 % Sodium Chloride 250 ML IVC PRN (10:07)
[2018-09-04] MEDS ORDERED: 0.9 % Sodium Chloride 1,000 ML PRIME SCH (10:15)
[2018-09-04] MEDS: Budesonide/Formoterol 80/4.5 MDI IH SCH ×2 (10:40→21:29)
--- NOTE | 2018-09-04 10:56 | Internal Med Progress Note ---
Hospitalist Progress Note - Encounter Date of Encounter: 09/04/18 Time of Encounter: 10:54 - Subjective Interval History: Pt states her SOB is gradually improving, although she does still notice symptoms when walking to bathroom. Interested in trying to ambulate w walker to hallway. Going for HD today. - Exam Vitals: Temp Pulse Resp BP Pulse Ox 97.8 F 88 20 151/81 100 09/04/18 07:09 09/04/18 07:09 09/04/18 10:42 09/04/18 07:09 09/04/18 10:42 Exam: General: NAD, good eye contact, well appearing, morbidly obese Thoracic: Coarse breath sounds bilaterally improving from yesterday, good air movement Cardio: Normal S1 and S2, regular rate and rhythm, no murmurs Abdomen: Soft, nontender, nondistended, obese Extremities: Warm, well perfused. DP pulses 2+ b/l. No edema. Skin: Intact. No rashes, bruises, or ulcers Neuro: Awake, fully oriented. Speech fluent - Summary of Assessment and Plan Summary of Assessment and Plan: Delilah Richey is a 72 F w hx COPD, HFpEF, ESRD on HD, DM2, HTN, morbid obesity, who p/w SOB and CP, found to have hypoxia, leukocytosis, CXR w RML opacity, and elevated troponin, concerning for HCAP causing COPD exacerbation as well as possible ischemia. HCAP: CXR w RML opacity, recent hospitalization 2 months ago - BCx x2 ngtd - continue Rocephin 2g daily, azithro 500 po daily, last doses 09/08 COPD in acute exacerbation: improving - nebs q4h&prn - prednisone 40 daily x5d, s/p solumedrol 125 in ED - azithro as above - home inhalers Chronic hypoxic respiratory failure: acute component resolved as pt back to home 2L - home supplemental O2 - IS - walk test prior to discharge NSTEMI: multiple risk factors, and pt had CP on admission initially attributed to cough, trop peak ~3 - tele - hep gtt - home ASA 81, Lipitor 40 - start metoprolol 12.5 bid - Cardio consult, suspect pt will need LHC when respiratory symptoms further improve ESRD on HD MWF: Neph consulted, plan for HD today DM2: c/b renal disease and neuropathy, continue basal and SSI HTN: home meds Hypothyroidism: home synthroid Morbid Obesity: BMI 50 PPx: sqh FEN: renal ADA, no MIVF Lines: PIV Consults: Cardio, Neph Code: Full Dispo: patient requires inpatient eval and management at this time. Anticipate 2-3 days. Will be homegoing Internal Medicine: Result - Labs CBC & Chem 7: 09/04/18 06:03 09/04/18 06:03 Labs: Short CBC 09/04/18 Range/Units 06:03 WBC 11.7 H (4.3-11.1) K/mcL Hgb 10.0 L (11.5-15.4) g/dL Hct 33.5 L (35.3-44.9) % Plt Count 267 (140-400) K/mcL BMP 09/04/18 06:03 Sodium 138 Potassium 4.6 Chloride 99 Carbon Dioxide 22 L BUN 62 H Creatinine 6.40 H Glucose 247 H Calcium 8.1 L Cardiac Enzymes 09/04/18 Range/Units 08:39 Troponin I 2.59 H* (< 0.04) ng/mL - ABG Interpretation ABG results: PT/INR, D-dimer PT 12.6 Seconds (9.4-12.1) H 09/03/18 07:49 - Impressions Impressions Echocardiogram 09/03/18 08:14 Impressions: LVEF 50-55%. Mild segmental left ventricular systolic dysfunction. Mild concentric left ventricular hypertrophy. Moderate left ventricular diastolic dysfunction. Moderately dilated left atrium. Mildly dilated right ventricle with normal function. Mild mitral regurgitation. Mild tricuspid regurgitation. No pulmonary hypertension. Left Ventricular Wall Motion: Rest Echo Findings The apex and apical lateral tobin were hypokinetic. All other wall segments showed normal motion. Findings: Study Quality * Technically sub-optimal due to clinical status. ECG Findings * Sinus rhythm with PVCs, BBB. Left Ventricle * LVEF 50-55%. * Normal LV chamber size. * Mild concentric left ventricular hypertrophy. * Mild segmental left ventricular systolic dysfunction. * Moderate left ventricular diastolic dysfunction. * There is no LV thrombus. * Atypical septal motion consistent with bundle branch block. Right Ventricle * Mildly dilated right ventricle with normal function. Left Atrium * Moderately dilated left atrium. Right Atrium * Normal right atrial size. Interatrial Septum * Interatrial septum not well evaluated. Aortic Valve * Moderately calcified aortic valve leaflets. * No aortic regurgitation. * No aortic stenosis. Mitral Valve * Moderate mitral annular calcification * Mildly calcified mitral valve leaflets. * Mild mitral regurgitation. * No mitral stenosis. Tricuspid Valve * Normal tricuspid valve structure. * No tricuspid stenosis. * Mild tricuspid regurgitation. * Estimated RVSP is 26 mmHg. * Estimated RA pressure is 8 mmHg. * No pulmonary hypertension. Pulmonic Valve * Pulmonic valve is not well visualized. * No pulmonic stenosis. * No pulmonic regurgitation. Aorta * Normally sized aortic root. Pericardium * The pericardium appears normal. IVC * The IVC is dilated. * > 50% respiratory change Consult Discharge Plan - Plan Referrals: Cecy Valdez MD [Primary Care Provider] - 09/11/18 11:45 am (Please follow up as schedule...)
--- NOTE | 2018-09-04 13:00 | Nephrology Consult Note ---
Date of Encounter: 09/04/18 Time of Encounter: 08:35 Assessment and Plan (1) End stage renal disease Current Visit: Yes Status: Chronic HD MWF, and due for HD today (Friday). She would next be due for dialysis on Friday, and I will be available this weekend if needed. Please feel free to call or page me if any questions. Renal vitamins. Renal dose medications. Renal diet. History of Present Illness - Reason for Consult Consult date: 09/03/18 end stage renal disease Requesting physician: Morgan Tran - Chief Complaint ESRD - History of Present Illness The patient is a very pleasant 72-year-old female with a past medical history of hypertension, obesity, ESRD on thrice weekly hemodialysis Friday/Friday/Friday and etc. who presented to the hospital. Nephrology was consulted to help maintain her dialysis schedule. She dialyzes at the [facility] dialysis unit every Friday, Friday, Friday, and runs for 210 minutes. Her listed target weight is 113.5 kg using 160m2 dialysis filter. She typically receives 2000 units heparin loading dose and 500 units of heparin per hour. Her dialysis access is a right lower arm AV fistula. She no longer makes urine, she previously reported to me. She formerly was followed by another nephrology group, but in the last year wanted to switch to the [facility]. She was in the bathroom much of yesterday, and my colleague Dr. Vera was unable to see her. Past Med Surg Social Fam HX - Past Medical History Medical history: arthritis, asthma, CHF, COPD, diabetes, dialysis, GERD, hyperlipidemia, hypertension, osteoporosis, renal disease, thyroid disease, other Additional medical history: IDDM,osteoarthitis,steel from AV-fistula,kidney disease,onychomycosis, Psychiatric history: no psych history - Past Surgical History Surgical History: cataract, cholecystectomy, herniorrhaphy, other Additional surgical history: gastric by pass,T&A,l arm dialysis fistula,bypass around fistula,hernia stomach,angioplasty l arm, bypass l arm - Social History Smoking Status: Never smoker Smokeless Tobacco Status: No Alcohol use: none Drug use: none - Family History Father Living Status: Hx Family Cardiac Disorders: Yes Hx Family Cancer: Yes (Bone CA) Medications and Allergies Atorvastatin [Lipitor] 40 mg PO QPM 01/16/15 [History] Gabapentin [Neurontin] 100 - 300 mg PO HS PRN 08/13/16 [History] Lactobacillus Combination No.8 [Adult Probiotic] 1 cap PO QPM 08/13/16 [History] Multivitamin [Multivitamins] 1 tab PO DAILY 08/13/16 [History] Sodium Bicarbonate 650 mg PO TID 08/13/16 [History] Calcium Acetate [Phos-LO] 2,001 mg PO TIDWM 10/31/16 [History] Insulin Regular, Human [Novolin R] 0 unit SQ TIDAC PRN 10/31/16 [History] Oxygen 2 l NS HS 10/31/16 [History] Fluticasone Propionate Nasal [Flonase] 2 spr NS BID PRN 07/01/17 [History] Fluticasone/Salmeterol [Advair 250-50 Diskus] 1 puff IH BID 07/01/17 [History] HYDROcodone/Acet 5/325 mg [Acworth 5-325 mg] 1 tab PO Q6H PRN 5 Days #20 tab 07/01/17 [Rx] Aspirin [Adult Aspirin Regimen] 81 mg PO QPM 09/02/18 [History] Calcium Acetate [Phos-LO] 1,334 mg PO DAILY 09/02/18 [History] Ergocalciferol (VITAMIN D2) [Vitamin D2] 50,000 unit PO SA 09/02/18 [History] Levothyroxine Sodium 50 mcg PO QAM 09/02/18 [History] Psyllium Husk [Fiber] 0.52 gm PO DAILY 09/02/18 [History] Silver Sulfadiazine [Ssd] 1 appl NS HS 09/02/18 [History] raNITIdine HCl [Zantac] 300 mg PO QPM 09/02/18 [History] Allergy/AdvReac Type Severity Reaction Status Date / Time levofloxacin Allergy Severe "HIVES, Verified 09/02/18 21:06 ITCHING, BURNING" Review of Systems All Systems: reviewed and no additional remarkable complaints except as stated Exam - Vital Signs Vital signs: Initial Vital Signs Temp Pulse Resp BP Pulse Ox 98.4 F 98 22 155/82 94 09/02/18 13:10 09/02/18 13:10 09/02/18 13:10 09/02/18 13:10 09/02/18 13:10 Vital Signs - Last 8 Hours Temp Pulse Resp BP Pulse Ox 09/04/18 11:01 97.7 F 95 16 153/90 99 09/04/18 10:42 20 100 09/04/18 07:09 97.8 F 88 20 151/81 100 Intake and Output 09/03/18 09/04/18 09/04/18 23:59 07:59 15:59 Intake Total 387 / 387 83 / 83 380 / 380 Balance 387 / 387 83 / 83 380 / 380 Intake: IV Fluids 147 / 147 83 / 83 20 / 20 Heparin 25,000 UNIT/250 ML D5W 147 / 147 83 / 83 20 / 20 25,000 unit In 250 ml @ 8.8 UNIT/KG/HR 9.979 mls/hr IVC . Q24H JASS Rx#:[id number] Oral 240 / 240 360 / 360 Other: Meal Dinner Breakfast Percent of Meal Consumed 100% 100% Stool Size Large Stool Consistency liquid Stool Characteristics Seedy Stool Color Brown # Bowel Movement Diapers 1 Blood Glucose* 256 206 227 - General Appearance General appearance: well-developed, well-nourished, obese EENT: ATNC, PERRL, mucous membranes moist Neck: supple Respiratory: clear Cardiology: edema, regular rate, normal S1, normal S2 - Dialysis Access Dialysis Vascular Access: Arteriovenous Fistula (right lower arm AVF) thrill: Yes bruit: Yes Gastrointestinal: normoactive bowel sounds, no guarding, obese Neurologic: no focal deficit, no asterixis Musculoskeletal: no deformities Psychiatric: mood/affect appropriate, cooperative Results - Lab Results 09/04/18 06:03 09/04/18 06:03 Most recent lab results Calcium 8.1 mg/dL (8.6-10.3) L 09/04/18 06:03 Magnesium 2.0 mg/dL (1.6-2.6) 09/03/18 03:51 Consult Discharge Plan - Plan Referrals: Cecy Valdez MD [Primary Care Provider] - 09/11/18 11:45 am (Please follow up as schedule...)
[2018-09-04] MEDS: *HR* Heparin 5,000 UNIT/ML VIAL IVP PRN (14:07)
[2018-09-04] MEDS: Lactobacillus 1 EACH CAP.SPRINK PO SCH (17:00)
[2018-09-04] MEDS: *HR* HYDROcodone/Acet 5/325 mg TABLET PO PRN (23:07)
[2018-09-04] MEDS: Gabapentin 100 MG CAPSULE PO SCH (23:08)
[2018-09-04] MEDS: Aspirin Enteric Coated 81 MG Tablet PO SCH (23:08)
[2018-09-05] MEDS: Insulin LISPRO 300 UNITS/3 ML VIAL SQ SCH ×5 (00:54→21:20)
[2018-09-05] MEDS: Heparin 25,000 UNIT/250 ML D5W 25,000 UNIT/250 ML IV.SOLN IVC SCH (01:22)
[2018-09-05] MEDS: Ipratropium/Albuterol Neb 3 ML IH SCH ×4 (03:34→21:33)
[2018-09-05] MEDS ORDERED: Acetaminophen 325 MG TABLET PO ONE (05:30)
[2018-09-05 07:31] LABS: Calcium 8.1 mg/dL (8.6-10.3)
--- NOTE | 2018-09-05 07:52 | Event Note ---
Date of Encounter: 09/05/18 Time of Encounter: 07:50 - Cardiology Event Note Laboratory Tests 09/02/18 09/02/18 09/03/18 13:27 20:15 03:51 Creatinine Est GFR (Non-Af Amer) Troponin I 0.06 H* 0.07 H* 2.86 H* 09/04/18 09/05/18 08:39 04:04 Creatinine 4.09 H Est GFR (Non-Af Amer) 11 L Troponin I 2.59 H* ECHO: Impressions: LVEF 50-55%. Mild segmental left ventricular systolic dysfunction. Mild concentric left ventricular hypertrophy. Moderate left ventricular diastolic dysfunction. Moderately dilated left atrium. Mildly dilated right ventricle with normal function. Mild mitral regurgitation. Mild tricuspid regurgitation. No pulmonary hypertension. Left Ventricular Wall Motion: Rest Echo Findings The apex and apical lateral tobin were hypokinetic. All other wall segments showed normal motion. Possible emand ischemia-- pneumonia / ESRD. Plans for catheterization Friday if clinically stable. Will evaluate need for cardiac rehabilitation once catheterization complete
[2018-09-05] MEDS: predniSONE 20 MG TABLET PO SCH (07:57)
[2018-09-05] MEDS: Azithromycin 250 MG TABLET PO SCH (07:57)
[2018-09-05] MEDS: cefTRIAXone 2,000 MG in Water for inj. (sterile) 20 ML 20 ML IVP SCH (07:57)
[2018-09-05 08:03] LABS: Hematocrit 31.8 % (35.3-44.9); Hemoglobin 9.5 g/dL (11.5-15.4); Mean Corpuscular HGB Conc 29.9 g/dL (31.6-35.5); Mean Corpuscular Hemoglobin 29.5 pg (28.0-33.3); Mean Corpuscular Volume 98.8 fL (83.0-100.0); Mean Platelet Volume 10.9 fL (9.4-12.4); Platelet Count 288 K/mcL (140-400); Red Blood Count 3.22 M/mcL (3.82-4.97); Red Cell Distribution Width 15.2 % (11.5-14.5)
--- NOTE | 2018-09-05 10:18 | Internal Med Progress Note ---
Hospitalist Progress Note - Encounter Date of Encounter: 09/05/18 Time of Encounter: 10:12 - Subjective Interval History: Pt today still feels tired/weak with exertion although resting SOB is improved. Minimal to no cough. Denies CP, N/V/D. Given IS and instructed on use. Pt would like to stay and get LHC if needed prior to d/c home. - Exam Vitals: Temp Pulse Resp BP Pulse Ox 98.5 F 88 20 141/74 97 09/05/18 07:48 09/05/18 07:48 09/05/18 07:48 09/05/18 07:48 09/05/18 07:48 Exam: General: NAD, good eye contact, well appearing, morbidly obese Thoracic: good air movement bilaterally, improving bibasilar rhonchi Cardio: Normal S1 and S2, regular rate and rhythm, no murmurs Abdomen: Soft, nontender, nondistended, obese Extremities: Warm, well perfused. DP pulses 2+ b/l. No edema. Skin: Intact. No rashes, bruises, or ulcers Neuro: Awake, fully oriented. Speech fluent - Summary of Assessment and Plan Summary of Assessment and Plan: Delilah Richey is a 72 F w hx COPD, HFpEF, ESRD on HD, DM2, HTN, morbid obesity, who p/w SOB and CP, found to have hypoxia, leukocytosis, CXR w RML opacity, and elevated troponin, concerning for HCAP causing COPD exacerbation as well as possible ischemia. HCAP: CXR w RML opacity, recent hospitalization 2 months ago - BCx x2 ngtd - continue Rocephin 2g daily, azithro 500 po daily, last doses 09/08 COPD in acute exacerbation: improving - space nebs to q6h&prn - prednisone 40 daily, last dose 09/06 - azithro as above - home inhalers Chronic hypoxic respiratory failure: acute component resolved as pt back to home 2L - home supplemental O2 - IS - walk test prior to discharge NSTEMI: multiple risk factors, and pt had CP on admission initially attributed to cough, trop peak ~3 - tele - can d/c hep gtt today - home ASA 81, Lipitor 40 - new metoprolol 12.5 bid - Cardio consult, will plan for LHC on Friday ESRD on HD MWF: Neph following DM2: c/b renal disease and neuropathy, continue basal and SSI HTN: home meds Hypothyroidism: home synthroid Morbid Obesity: BMI 50 PPx: sqh FEN: renal ADA, no MIVF Lines: PIV Consults: Cardio, Neph Code: Full Dispo: patient requires inpatient eval and management at this time. HD and LHC on Friday, likely d/c home Friday Internal Medicine: Result - Labs CBC & Chem 7: 09/05/18 04:04 09/05/18 04:04 Labs: Short CBC 09/05/18 Range/Units 04:04 WBC 11.5 H (4.3-11.1) K/mcL Hgb 9.5 L (11.5-15.4) g/dL Hct 31.8 L (35.3-44.9) % Plt Count 288 (140-400) K/mcL BMP 09/05/18 04:04 Sodium 140 Potassium 4.0 Chloride 99 Carbon Dioxide 26 BUN 38 H Creatinine 4.09 H Glucose 197 H Calcium 8.1 L - ABG Interpretation ABG results: PT/INR, D-dimer PT 12.6 Seconds (9.4-12.1) H 09/03/18 07:49 Consult Discharge Plan - Plan Referrals: Cecy Valdez MD [Primary Care Provider] - 09/11/18 11:45 am (Please follow up as schedule...)
[2018-09-05] MEDS: Budesonide/Formoterol 80/4.5 MDI IH SCH ×2 (10:29→21:33)
[2018-09-05] MEDS: Lactobacillus 1 EACH CAP.SPRINK PO SCH (16:50)
[2018-09-05] MEDS: Gabapentin 100 MG CAPSULE PO SCH (21:19)
[2018-09-05] MEDS: Aspirin Enteric Coated 81 MG Tablet PO SCH (21:19)
[2018-09-06] MEDS: Acetaminophen 325 MG TABLET PO PRN (00:31)
[2018-09-06] MEDS: Ipratropium/Albuterol Neb 3 ML IH SCH ×4 (04:01→21:59)
[2018-09-06 06:41] LABS: Hematocrit 29.5 % (35.3-44.9); Hemoglobin 8.9 g/dL (11.5-15.4); Mean Corpuscular HGB Conc 30.2 g/dL (31.6-35.5); Mean Corpuscular Hemoglobin 29.8 pg (28.0-33.3); Mean Corpuscular Volume 98.7 fL (83.0-100.0); Mean Platelet Volume 10.2 fL (9.4-12.4); Platelet Count 269 K/mcL (140-400); Red Blood Count 2.99 M/mcL (3.82-4.97)
[2018-09-06 06:59] LABS: Calcium 8.7 mg/dL (8.6-10.3); Potassium 4.2 mEq/L (3.5-5.1)
[2018-09-06] MEDS: Azithromycin 250 MG TABLET PO SCH (07:57)
[2018-09-06] MEDS: predniSONE 20 MG TABLET PO SCH (07:57)
[2018-09-06] MEDS: Insulin LISPRO 300 UNITS/3 ML VIAL SQ SCH ×4 (07:57→20:43)
[2018-09-06] MEDS: cefTRIAXone 2,000 MG in Water for inj. (sterile) 20 ML 20 ML IVP SCH ×2 (07:58→13:20)
--- NOTE | 2018-09-06 09:03 | Internal Med Progress Note ---
Hospitalist Progress Note - Encounter Date of Encounter: 09/06/18 Time of Encounter: 09:00 - Subjective Interval History: Pt reports feeling decent this AM, less exertional dyspnea each day. Food this AM is unpalatable but otherwise is doing well. She was told she's NPO@[place] for likely LHC tomorrow. No N/V/D. - Exam Vitals: Temp Pulse Resp BP Pulse Ox 97.6 F 79 20 153/57 100 09/06/18 07:18 09/06/18 07:18 09/06/18 07:18 09/06/18 07:18 09/06/18 07:18 Exam: General: NAD, good eye contact, well appearing, morbidly obese, pleasant Thoracic: good air movement bilaterally, stable faint bibasilar rhonchi Cardio: Normal S1 and S2, regular rate and rhythm, no murmurs Abdomen: Soft, nontender, obese Extremities: Warm, well perfused. DP and radial pulses 2+ b/l. No edema. Skin: Intact. No rashes, bruises, or ulcers Neuro: Awake, fully oriented. Speech fluent - Summary of Assessment and Plan Summary of Assessment and Plan: Delilah Richey is a 72 F w hx COPD, HFpEF, ESRD on HD, DM2, HTN, morbid obesity, who p/w SOB and CP, found to have hypoxia, leukocytosis, CXR w RML opacity, and elevated troponin, concerning for HCAP causing COPD exacerbation as well as possible ischemia. HCAP: CXR w RML opacity, recent hospitalization 2 months ago - BCx x2 ngtd - continue Rocephin 2g daily, azithro 500 po daily, last doses 09/08 COPD w chronic hypoxic respiratory failure: acute exacerbation resolved - nebs q6h&prn - prednisone 40 daily, last dose today - azithro as above - home inhalers - home supplemental O2 - IS - walk test prior to discharge NSTEMI: multiple risk factors, and pt had CP on admission initially attributed to cough, trop peak ~3 - tele - home ASA 81, Lipitor 40 - new metoprolol 12.5 bid - Cardio consult, will plan for LHC on Friday ESRD on HD MWF: Neph following DM2: c/b renal disease and neuropathy, continue basal and SSI HTN: home meds Hypothyroidism: home synthroid Morbid Obesity: BMI 50 PPx: sqh FEN: renal ADA then NPO@[place], no MIVF Lines: PIV Consults: Cardio, Neph Code: Full Dispo: patient requires inpatient eval and management at this time. HD and LHC on Friday, likely d/c home Friday Internal Medicine: Result - Labs CBC & Chem 7: 09/06/18 06:28 09/06/18 06:28 Labs: Short CBC 09/06/18 Range/Units 06:28 WBC 10.0 (4.3-11.1) K/mcL Hgb 8.9 L (11.5-15.4) g/dL Hct 29.5 L (35.3-44.9) % Plt Count 269 (140-400) K/mcL BMP 09/06/18 06:28 Sodium 139 Potassium 4.2 Chloride 98 Carbon Dioxide 28 BUN 75 H Creatinine 5.50 H Glucose 210 H Calcium 8.7 - ABG Interpretation ABG results: PT/INR, D-dimer PT 12.6 Seconds (9.4-12.1) H 09/03/18 07:49 Consult Discharge Plan - Plan Referrals: Cecy Valdez MD [Primary Care Provider] - 09/11/18 11:45 am (Please follow up as schedule...)
[2018-09-06] MEDS: Budesonide/Formoterol 80/4.5 MDI IH SCH ×2 (11:06→21:59)
[2018-09-06] MEDS ORDERED: CefTRIAXone 1,000 MG VIAL IM ONE (13:19)
[2018-09-06] MEDS ORDERED: Lidocaine 1% 20 ML MDV ID ONE (13:56)
[2018-09-06] MEDS: *HR* Heparin 5,000 UNIT/ML VIAL SQ SCH ×2 (14:09→22:11)
[2018-09-06] MEDS: Lactobacillus 1 EACH CAP.SPRINK PO SCH (17:00)
[2018-09-06] MEDS: Aspirin Enteric Coated 81 MG Tablet PO SCH (20:40)
[2018-09-06] MEDS: Gabapentin 100 MG CAPSULE PO SCH (20:40)
[2018-09-07] MEDS: Ipratropium/Albuterol Neb 3 ML IH SCH ×4 (04:11→22:03)
[2018-09-07] MEDS: *HR* Heparin 5,000 UNIT/ML VIAL SQ SCH ×3 (06:18→22:49)
[2018-09-07 06:28] LABS: Hematocrit 29.5 % (35.3-44.9); Hemoglobin 8.7 g/dL (11.5-15.4); Mean Corpuscular HGB Conc 29.5 g/dL (31.6-35.5); Mean Corpuscular Hemoglobin 29.3 pg (28.0-33.3); Mean Corpuscular Volume 99.3 fL (83.0-100.0); Mean Platelet Volume 10.6 fL (9.4-12.4); Platelet Count 282 K/mcL (140-400); Red Blood Count 2.97 M/mcL (3.82-4.97); Red Cell Distribution Width 15.1 % (11.5-14.5)
[2018-09-07 06:47] LABS: Calcium 9.1 mg/dL (8.6-10.3)
[2018-09-07] MEDS ORDERED: 0.9 % Sodium Chloride 250 ML IVC PRN (07:37)
[2018-09-07] MEDS ORDERED: 0.9 % Sodium Chloride 2,000 ML ONE (07:47)
[2018-09-07] MEDS: Azithromycin 250 MG TABLET PO SCH (08:37)
[2018-09-07] MEDS: Insulin LISPRO 300 UNITS/3 ML VIAL SQ SCH ×4 (08:37→20:18)
[2018-09-07] MEDS: predniSONE 20 MG TABLET PO SCH (08:37)
[2018-09-07] MEDS: Budesonide/Formoterol 80/4.5 MDI IH SCH ×2 (09:57→22:03)
--- NOTE | 2018-09-07 11:11 | Internal Med Progress Note ---
Hospitalist Progress Note - Encounter Date of Encounter: 09/07/18 Time of Encounter: 11:09 - Subjective Interval History: - Exam Vitals: Temp Pulse Resp BP Pulse Ox 97.6 F 75 18 162/71 100 09/07/18 07:18 09/07/18 07:18 09/07/18 07:18 09/07/18 07:18 09/07/18 07:18 Exam: General: NAD, good eye contact, well appearing, morbidly obese, pleasant Thoracic: good air movement bilaterally, stable faint bibasilar rhonchi Cardio: Normal S1 and S2, regular rate and rhythm, no murmurs Abdomen: Soft, nontender, obese Extremities: Warm, well perfused. DP and radial pulses 2+ b/l. No edema. Skin: Intact. No rashes, bruises, or ulcers Neuro: Awake, fully oriented. Speech fluent - Summary of Assessment and Plan Summary of Assessment and Plan: Delilah Richey is a 72 F w hx COPD, HFpEF, ESRD on HD, DM2, HTN, morbid obesity, who p/w SOB and CP, found to have hypoxia, leukocytosis, CXR w RML opacity, and elevated troponin, concerning for HCAP causing COPD exacerbation as well as possible ischemia. HCAP: CXR w RML opacity, recent hospitalization 2 months ago - BCx x2 ngtd - continue Rocephin 2g daily, azithro 500 po daily, last doses 09/08 COPD w chronic hypoxic respiratory failure: acute exacerbation resolved - nebs q6h&prn - prednisone 40 daily, last dose today - azithro as above - home inhalers - home supplemental O2 - IS - walk test prior to discharge NSTEMI: multiple risk factors, and pt had CP on admission initially attributed to cough, trop peak ~3 - tele - home ASA 81, Lipitor 40 - new metoprolol 12.5 bid - Cardio consult, will plan for LHC today ESRD on HD MWF: Neph following DM2: c/b renal disease and neuropathy, continue basal and SSI HTN: home meds Hypothyroidism: home synthroid Morbid Obesity: BMI 50 PPx: sqh FEN: NPO then renal ADA after LHC, no MIVF Lines: PIV Consults: Cardio, Neph Code: Full Dispo: patient requires inpatient eval and management at this time. HD and LHC today, likely d/c home tomorrow Internal Medicine: Result - Labs CBC & Chem 7: 09/07/18 05:48 09/07/18 05:48 Labs: Short CBC 09/07/18 Range/Units 05:48 WBC 13.0 H (4.3-11.1) K/mcL Hgb 8.7 L (11.5-15.4) g/dL Hct 29.5 L (35.3-44.9) % Plt Count 282 (140-400) K/mcL BMP 09/07/18 05:48 Sodium 139 Potassium 5.0 Chloride 98 Carbon Dioxide 26 BUN 92 H Creatinine 7.09 H Glucose 219 H Calcium 9.1 - ABG Interpretation ABG results: PT/INR, D-dimer PT 12.6 Seconds (9.4-12.1) H 09/03/18 07:49 Consult Discharge Plan - Plan Referrals: Cecy Valdez MD [Primary Care Provider] - 09/11/18 11:45 am (Please follow up as schedule...)
--- NOTE | 2018-09-07 11:45 | Nephrology Progress Note ---
Date of Encounter: 09/07/18 Time of Encounter: 10:35 - Assessment and Plan (1) End stage renal disease Current Visit: Yes Status: Chronic HD ordered for today (Friday). Next HD planned for Friday. I reviewed the pt's vital sign and lab trends, meds, I/Os and progress notes, which I used to evaluate and then compose HD orders. Thank you. Subjective Principal diagnosis: Pneumonia; elevated troponin Interval history: Pt was s/e while on HD. She did not affirm N/V/D or cramping while on HD. Objective - Vital Signs Vital signs: Vital Signs Temp Pulse Resp BP Pulse Ox 09/07/18 07:18 97.6 F 75 18 162/71 100 09/07/18 04:11 18 99 09/07/18 03:51 97.4 F L 72 16 136/73 100 09/07/18 00:04 97.9 F 64 16 134/44 100 09/06/18 22:04 16 100 09/06/18 19:35 98 F 85 16 165/62 99 09/06/18 15:49 98.1 F 111 20 142/92 98 09/06/18 15:35 18 93 09/06/18 12:25 97.7 F 99 20 148/44 97 Intake and Output 09/06/18 09/07/18 09/07/18 23:59 07:59 15:59 Intake Total 75 / 315 Balance 75 / 315 Intake: Oral 75 / 315 Other: Weight 112.8 kg Blood Glucose* 343 192 150 Patient Weight 09/07/18 23:59 Weight 112.8 kg - General Appearance Exam: General appearance: well-developed, well-nourished, obese EENT: ATNC, PERRL, mucous membranes moist Neck: supple Respiratory: clear Cardiology: edema, regular rate, normal S1, normal S2 - Dialysis Access Dialysis Vascular Access: Arteriovenous Fistula (right lower arm AVF) thrill: Yes bruit: Yes Gastrointestinal: normoactive bowel sounds, no guarding, obese Neurologic: no focal deficit, no asterixis Musculoskeletal: no deformities Psychiatric: mood/affect appropriate, cooperative - Lab 09/07/18 05:48 09/07/18 05:48 Most recent lab results 09/07/18 05:48 Calcium 9.1 Consult Discharge Plan - Plan Referrals: GriseldaCecy Vásquez MD [Primary Care Provider] - 09/11/18 11:45 am (Please follow up as schedule...)
[2018-09-07] MEDS ORDERED: 0.9 % Sodium Chloride 1,000 ML ONE ×2 (12:32→12:34)
[2018-09-07] MEDS ORDERED: Heparin 1,000 UNITS/500 mL 500 ML ONE (12:33)
[2018-09-07] MEDS ORDERED: ISOVUE-370 200 ML INFUS..BTL ONE ×2 (12:33→13:55)
[2018-09-07] MEDS ORDERED: Nitroglycerin 1,000 MCG/10 ML VIAL IV ONE ×2 (12:33→13:49)
[2018-09-07] MEDS ORDERED: *HR* Heparin 10,000 UNIT/10 ML VIAL ONE (12:33)
[2018-09-07] MEDS ORDERED: Verapamil 5 MG/2 ML VIAL ONE (12:34)
[2018-09-07] MEDS ORDERED: *HR* Midazolam HCl 2 MG/2 ML VIAL ONE ×2 (13:08→13:28)
[2018-09-07] MEDS ORDERED: *HR* FentaNYL (PF) 100 MCG/2 ML VIAL ONE (13:08)
--- NOTE | 2018-09-07 13:13 | Pre-Sedation Evaluation ---
Pre-sedation evaluation - Pre-sedation checklist Date of procedure: 09/07/18 Procedure: [facility] Recent Vitals: Last Vital Signs Temp 97.6 F 09/07/18 07:18 Pulse 75 09/07/18 07:18 Resp 18 09/07/18 07:18 BP 162/71 09/07/18 07:18 Pulse Ox 100 09/07/18 07:18 H&P (including ROS) documented in medical record: Yes Previous reaction to sedatives/anesthetics: No Dietary Status: No solid food in preceding 4 hrs and no liquid in preceding 2 hrs Dentition: No loose teeth or bridges ASA Classification *see protocol: CLASS II-Mild systemic disease Plan of Care: Pt appropriate candidate for procedure/moderate/conscious sedation, Risks/benefits of procedure/sedation discussed w/ patient/family Cardiac Registry (Cardio Only) - Functional Capacity Functional Capacity: < 4 METS - Clincal Frailty Scale Clinical Frailty Scale: Vulnerable
[2018-09-07] MEDS ORDERED: Tirofiban 12.5 MG/250ML 12.5 MG/250 ML BAG ONE (13:49)
[2018-09-07] MEDS ORDERED: Tirofiban 12.5 MG/250ML 12.5 MG/250 ML BAG IVC SCH (14:45)
--- NOTE | 2018-09-07 14:56 | Invasive Diagnostic Lab Proc ---
Name: Delilah Richey Date of Study: 09/07/2018 Date: 1945 Ht: 59.1in Medical Record#: [id number] Age: 72 Wt: 249.12lb Gender: Female BSA: 2.03 Order #: [id number] BMI: 50.22 Physicians Procedure Physician: Giovanny Hannah MD, [facility] Referring MD: Referring MD: Staff Name Position [facility] Scrub 12:45 PM Brenden Spencer RN Railroad Inspector 12:46 PM Myra Hill RN Railroad Inspector 12:46 PM Sites, Melissa RT (R) Monitor 12:46 PM Indications Indication Non-Stemi Procedures Performed Procedure L HRT ARTERY/VENTRICLE ANGIO PRQ CARD MAXWELL STENT W/ANGIO 1 VSL Pre-Procedure Checklist Informed consent is complete signed and on chart. H&P is on chart. ID band is on and ID verified with patient. Patient NPO for procedure The procedure was described for the patient and questions were answered. Blood Pressure: 114/54 ECG is on chart. Rhythm: NSR Plan of Care Patient will tolerate the procedure without complications. Adequate level of comfort will be maintained. Hemodynamics will remain stable Patient will recover from procedure without complications. Respiratory function will be maintained. Cardiac rhythm will remain stable. Patient temperature will be maintained. Patient and/or family have verbalized understanding of the procedure. Patient Education Chief Complaint/Reason for Test: Cardiac Cath Developmental Category: Geriatric (65+ years) Developmentally Appropriate for Age: Yes Learning Barriers: None Education Needs: Procedure Education Method: Verbal Information Taught: Cardiac Cath Educational Evaluation: Able to repeat information Intravenous Access Time IV Size Location DC'd Fluid/Drip Rate Units RN 20g 1 05/15" Patent On Arrival 0.9NaCl 50 ml/hr Brenden Spencer RN Allergies No Known Allergies Vital Signs Time BP (mmHg) HR (bpm) O2 Sat. RR (bpm) LOC 01:06 PM 114 / 54 82 % 7 01:11 PM 106 / 31 98 99 % 12 01:17 PM 165 / 50 83 99 % 11 01:21 PM 123 / 49 103 100 % 01:26 PM 137 / 64 79 99 % 11 01:31 PM 124 / 40 87 98 % 20 01:36 PM 133 / 41 73 97 % 30 01:41 PM 125 / 26 77 98 % 13 01:46 PM 117 / 29 88 99 % 21 01:52 PM 133 / 42 86 98 % 01:56 PM 137 / 27 97 98 % 15 02:02 PM 138 / 36 82 100 % 20 02:08 PM 82 / 61 90 100 % 12 02:12 PM 127 / 103 88 100 % 34 Procedural Medications Time Medication Dose Units Method Given By 01:09 PM Oxygen 2 L/min nasal cannula Brenden Spencer RN 01:09 PM Versed 2 mg Intravenous Brenden Spencer RN 01:10 PM Fentanyl 25 mcg Intravenous Brenden Spencer RN 01:24 PM Lidocaine 2% 20 ml Subcutaneous Giovanny Hannah MD, FAC 01:27 PM Versed 1 mg Intravenous Brenden Spencer RN 01:28 PM Fentanyl 25 mcg Intravenous Brenden Spencer RN 01:31 PM Lidocaine 2% 10 ml Subcutaneous Giovanny Hannah MD, FAC 01:48 PM Heparin 4000 units Intravenous Brenden Spencer RN 01:54 PM Aggrastat Bolus: 58 ml Intravenous Brenden Spencer RN 01:54 PM Aggrastat 12.5mg/250ml 10.5 ml Intravenous Brenden Spencer RN 02:13 PM Nitroglycerin 200 mcg Intracoronary Giovanny Hannah MD 02:19 PM Plavix 300 mg Orally Brenden Spencer RN 02:20 PM Hydralazine 10 mg Intravenous Brenden Spencer RN 02:48 PM Plavix 300 mg Orally Brenden Spencer RN ASA Classification: CLASS II- Mild systemic disease (i.e. well-controlled diabetes, hypertension, asthma, cigarette smoking) Donna Score Preprocedure Postprocedure Activity 2- Moves 4 extremities sustained head lift Activity 2- Moves 4 extremities sustained head lift Circulation 2- SBP +/= 20 points of pre-anesthetic level Circulation 2- SBP +/= 20 points of pre-anesthetic level Consciousness 2- Awake and alert oriented x 3 Consciousness 2- Awake and alert oriented x 3 O2 Saturation 2- Able to maintain O2 satruation of 92% on room air O2 Saturation 2- Able to maintain O2 satruation of 92% on room air Respiratory 2- Able to deep breathe and cough well Respiratory 2- Able to deep breathe and cough well Total Score 10 Total Score 10 Contrast Agent: Isovue Diagnostic Contrast: 99 ml Total Contrast: 99 ml Fluoro Dose: 65 mGy Activated Clotting Time Time Seconds to Clot 02:17 PM 118 Procedure Log Time Note Enter By 12:44 PM CathStat 12:46 PM Harriet Leyva RN Position: Scrub Time in: 12:45 tsites 12:46 PM Brenden Spencer RN Position: Railroad Inspector Time in: 12:46 tsites 12:46 PM Myra Hill RN Position: Railroad Inspector Time in: 12:46 tsites 12:46 PM Melissa Zuniga RT (R) Position: Monitor Time in: 12:46 tsites 12:46 PM Patient charges- Angio tray pack, Navilyst 3mm J, Pulse Oximetry and ACIST tubing and transducer tsites 12:52 PM Pt arrived to ear mold laboratory technician 2 at 12:52 tsites 12:52 PM Physician arrived 12:52 tsites 12:52 PM Meet and pedro completed tsites 12:52 PM Sign in performed according to hospital policy. Informed consent was obtained. tsites 12:52 PM Procedure start 12:52 tsites 01:04 PM Vitals capture started with the following parameters, Patient=Adult, Interval=5 min, Initial Owmjtodu=412 mmHg, Deflation Rate=5 mmHg, Cuff placed on Right Arm 01:05 PM Vitals capture started with the following parameters, Patient=Adult, Interval=5 min, Initial Fohtnvtp=034 mmHg, Deflation Rate=5 mmHg, Cuff placed on Right Arm 01:06 PM Recorded ECG: HR=94 Condition=Condition 1 01:06 PM Recorded ECG: HR=85 Condition=Condition 1 01:06 PM HR=82 bpm, AXBC=062/54 mmhg, Resp=7 B/min 01:09 PM Hair removed from procedure site in holding area using clippers. Right groin prepped with Chloraprep by Melissa Zuniga (R), then patient was draped. Skin intact. tsites : PM Time: 13:09 Oxygen on at 2 L/min per nasal cannula by Brenden Spencer RN tsites 01:09 PM Clinical Presentation: Non-STEMI tsites 01:09 PM Time: 13:09 Versed 2 mg Intravenous Given by Brenden Spencer RN tsites 01:10 PM Time: 13:10 Fentanyl 25 mcg Intravenous Given by Brenden Spencer RN tsites 01:11 PM HR=98 bpm, KAVX=218/31 mmhg, SpO2=99.0 %, Resp=12 B/min 01:11 PM Recorded ECG: HR=94 Condition=Condition 1 01:17 PM HR=83 bpm, EAIM=325/50 mmhg, SpO2=99.0 %, Resp=11 B/min, EtCO2=35 mmHg 01:21 PM DG=183 bpm, ZDHE=686/49 mmhg, UtO8=551 % 01:24 PM Time out was performed according to hospital policy. Conscious sedation and anesthesia was achieved (see medication log with in this report above) tsites 01:25 PM Time: 13:24 20 ml Lidocaine 2% to right groin Subcutaneous Given by Giovanny Hannah MD, [facility] tsites 01:26 PM HR=79 bpm, QEXF=900/64 mmhg, SpO2=99 %, Resp=11 B/min 01:28 PM Time: 13:27 Versed 1 mg Intravenous Given by Brenden Spencer RN tsites : PM Time: 13:28 Fentanyl 25 mcg Intravenous Given by Brenden Spencer RN tsites :31 PM Time: 13:31 10 ml Lidocaine 2% to right groin Subcutaneous Given by Giovanny Hannah MD, [facility] tsites 01:31 PM HR=87 bpm, LFCH=872/40 mmhg, SpO2=98.0 %, Resp=20 B/min 01:35 PM Unsuccessful access attempt # 1 into the right Femoral artery. Manual pressure applied to achieve hemostasis.. tsites 01:36 PM HR=73 bpm, DMSP=652/41 mmhg, SpO2=97.0 %, Resp=30 B/min, EtCO2=35 mmHg 01:36 PM ultrasound utilized tsites 01:41 PM LCA angiography performed in multiple views. tsites 01:41 PM Recorded Pressure: Ao, HR=83, Condition=Condition 1 (Aorta) Ao 70/6/35 01:41 PM HR=77 bpm, AVSQ=926/26 mmhg, SpO2=98.0 %, Resp=13 B/min 01:41 PM 5Fr FL 4 catheter inserted over the wire [facility] tsites 01:41 PM 0.035 145cm Navilyst 3mmJ wire [id number] tsites 01:42 PM wire reinserted catheter removed tsites :43 PM Lesion found in Proximal Circumflex. Pre Stenosis: 15 Pre REYNALDO Flow: tsites 01:43 PM Lesion found in Mid Circumflex. Pre Stenosis: 40 Pre REYNALDO Flow: tsites :43 PM Circumflex, Obtuse Marginal, Left Posterior Descending, and Left Posterolateral Coronary Arteries with 40 % stenosis. If graft is supplying this area, 0 % stenosis tsites 01:44 PM 5Fr FR 4 catheter inserted over the wire [facility] tsites 01:44 PM RCA angiography performed in multiple views. tsites 01:44 PM Recorded Pressure: Ao, HR=90, Condition=Condition 1 (Aorta) Ao 29/-6/11 01:44 PM Coronary Dominance: right tsites 01:44 PM Lesion found in Proximal RCA. Pre Stenosis: 99 Pre REYNALDO Flow: tsites 01:45 PM Right Coronary, Right Posterior Descending Arteries with Right Posterolateral and Acute Marginal branches with 99 % stenosis. If graft is supplying this area, 0 % stenosis tsites 01:45 PM wire reinserted catheter removed tsites 01:45 PM 5Fr Pigtail catheter inserted over the wire [facility] tsites 01:46 PM Pressure channel 1 zero failed. 01:46 PM Pressure channel 1 zeroed. 01:46 PM HR=88 bpm, ZSPX=856/29 mmhg, SpO2=99 %, Resp=21 B/min 01:46 PM Recorded Pressure: LV, AL=584, Condition=Condition 1 (Left Ventricle) LV 150/3/13 01:46 PM Catheter crossed the aortic valve and was selectively placed in the left ventricle. Pressures recorded on pullback for left heart catheterization. tsites 01:47 PM Bolus angiogram of left Ventricle complete: 10 ml/sec for a total of 20 mls tsites 01:47 PM wire reinserted catheter removed tsites 01:47 PM PCI Status Urgent tsites 01:47 PM Recorded Pressure: LV, Ao, HR=87, Condition=Condition 1 (Left Ventricle) LV 156/2/15, (Aorta) Ao 154/58/95 01:47 PM Inflation device was opened. tsites 01:48 PM 5Fr JR 4 Convey guide catheter was used to cannulate the PCI vessel successfully. reused? No tsites 01:49 PM Time: 13:48 Heparin 4000 units Intravenous Given by Brenden Spencer RN tsites 01:49 PM .014 PT Graphix 182cm guide wire across target lesion- successful. reused? No tsites 01:51 PM 2.0 mm x 9 mm Mozec Rx balloon across target lesion- successful. reused? No tsites 01:52 PM HR=86 bpm, UPFC=481/42 mmhg, SpO2=98.0 % 01:52 PM Balloon inflated @ 8 michael for 10 seconds tsites 01:53 PM Balloon inflated @ 16 michael for 16 seconds tsites 01:54 PM Balloon catheter removed intact. tsites 01:54 PM Time: 13:54 Aggrastat Bolus: 58 ml Intravenous Given by Brenden Spencer RN Martines pump tsites 01:54 PM Time: 13:54 Aggrastat 12.5mg/250ml 10.5 ml Intravenous Given by Brenden Spencer RN Martines pump tsites 01:56 PM 2.75mm x 12mm Cordis EluNIR drug-eluting stent across target lesion- successful Lot #[id number] tsites 01:56 PM HR=97 bpm, YVDY=584/27 mmhg, SpO2=98.0 %, Resp=15 B/min 01:57 PM Stent delivery system removed intact. tsites 01:58 PM 2.75mm x 12mm Synergy drug-eluting stent across target lesion- successful Lot #[id number] tsites 02:00 PM Stent delivery system removed intact. tsites 02:01 PM Guide catheter removed intact. tsites 02:01 PM Sheath exchanged for a 6 Fr 11 cm [employer] [place] sheath [id number] tsites 02:01 PM 6Fr 3drc Cordis guide catheter was used to cannulate the PCI vessel successfully. reused? No tsites 02:02 PM HR=82 bpm, VXIJ=213/36 mmhg, QtZ0=398 %, Resp=20 B/min 02:02 PM wire reinserted tsites 02:03 PM 2.75x 12 synergy reinserted tsites 02:04 PM Stent delivery system removed intact. tsites 02:05 PM 2.75 x 12 elunir reinserted tsites 02:07 PM Stent delivery system removed intact. tsites 02:08 PM HR=90 bpm, NIBP=82/61 mmhg, LgE5=167.0 %, Resp=12 B/min 02:08 PM 2.25 mm x 12mm NC Trek Rx balloon across target lesion- successful. reused? No tsites 02:09 PM Balloon inflated @ 16 michael for 20 seconds tsites 02:09 PM Balloon inflated @ 16 michael for 19 seconds tsites 02:10 PM Balloon catheter removed intact. tsites 02:12 PM 2.75x 12 synergy reinserted tsites 02:12 PM HR=88 bpm, PBUC=928/103 mmhg, VqR2=009 %, Resp=34 B/min 02:12 PM Stent deployed @ 12 michael for 16 seconds tsites 02:13 PM Stent delivery system removed intact. tsites 02:13 PM Time: 14:13 Nitroglycerin 200 mcg Intracoronary Given by Giovanny Hannah MD tsites 02:13 PM Recorded Pressure: Ao, HR=91, Condition=Condition 1 (Aorta) Ao 116/64/88 02:16 PM Bolus angiogram of right Femoral complete: 4 ml/sec for a total of 7 mls tsites 02:17 PM At 14:17 the ACT was 118 seconds. tsites 02:19 PM Time: 14:19 Plavix 300 mg Orally Given by Brenden Spencer RN tsites 02:20 PM Time: 14:20 Hydralazine 10 mg Intravenous Given by Brenden Spencer RN tsites 02:21 PM Procedure completed at 14:21 09/07/2018 tsites 02:22 PM Sign out completed: Radiation Dose 576 mGy, 65 Gy/cm2 Fluoro Time: 11.1 Isovue 370 - 200ml contrast 99 ml given by Giovanny Hannah MD, FACC. Complications: None. The patient was discharged out of the earth science laboratory technician in stable condition. Sedation minutes 73Cardiac Rehab Consult needed: Yes. Confirmed administered medications: Yes tsites 02:22 PM Isovue 370 - 200ml,1 Bottle(s) used. tsites 02:23 PM Arterial sheath pulled using manual compression and V+ Pad for 15 minutes by Harriet Leyva RN tsites 02:23 PM Estimated Blood Loss: less than 20cc tsites 02:23 PM Post ECG NSR tsites 02:23 PM Post Blood Pressure 121/55 tsites 02:23 PM 14:23 Post Pulses Bilateral DP & PT 1+ tsites 02:23 PM Information taught Cardiac Cath, PCI, and V+ Pad tsites 02:23 PM Education needs Procedure, Plan of Care, and Responsibilities of Patient in Care tsites 02:23 PM Learning barriers :None tsites 02:23 PM Education Methods Verbal tsites 02:23 PM Education evaluation Able to repeat information tsites 02:24 PM Site status No bleeding/hematoma - Rt Groin as reported by Harriet Leyva RN at 14:23 tsites 02:24 PM Plavix, Effient or Brilinta given Yes tsites 02:24 PM Delay to floor No tsites 02:24 PM Patient out of room: 14:24 tsites 02:24 PM Family placed in consult room. tsites 02:25 PM Report given to idalia NAVARRETE Pt taken to 2A Room #22. 14:24 tsites 02:48 PM Time: 14:48 Plavix 300 mg Orally Given by Brenden Spencer RN tsites Complications Complication None Hemodynamics Pressures Site Systolic/A Wave Diastolic/V Wave Mean AO 70 6 35 AO 29 -6 11 LV 150 3 13 LV 156 2 15 AO 154 58 95 AO 116 64 88 Post Procedure Information Blood Pressure: 121/55 mmHg Rhythm: NSR Post procedural instructions were given Closure Device Time Device Success/Fail 09/07/2018 2:27:00 PM Manual Compression Successful Site Checks Time Location Status Staff Sheath In? Note 02:23 PM Rt Groin No bleeding/hematoma Harriet Leyva RN Pulses Time Site Pre-Procedure Post-Procedure Note Bilateral DP & PT 1+ Bilateral radial 2+ 2:23:00 PM Bilateral DP & PT 1+ Updated by Melissa Zuniga RT (R) on 09/07/2018 2:48:39 PM Melissa Zuniga RT electronically signed on 09/07/2018 2:49:08 PM with status of Final
[2018-09-07] MEDS: cefTRIAXone 2,000 MG in Water for inj. (sterile) 20 ML 20 ML IVP SCH (15:08)
[2018-09-07] MEDS: Lactobacillus 1 EACH CAP.SPRINK PO SCH (16:59)
[2018-09-07] MEDS: Aspirin Enteric Coated 81 MG Tablet PO SCH (20:17)
[2018-09-07] MEDS: Gabapentin 100 MG CAPSULE PO SCH (20:17)
--- NOTE | 2018-09-08 02:27 | Event Note ---
Date of Encounter: 09/07/18 Time of Encounter: 20:41 Alerted by pts. nurse LANDON Johnson that the pt. was status post-[facility] and had developed a sizable right hematoma in the groin site of the LHC and nurse wished that I come immediately. Went to see pt. who was resting in bed. Nurse and Charge Nurse Xiomara were holding pressure on the hematoma site. Hematoma was roughly the size of a large grapefruit in the right groin. I examined the site and most of the hematoma had been broken up by the applied pressure. Pts. BP was 104/53 at the time w/HR100, RR 17, SpO2 99% on 2L via NC. Pt. denied any sx such as CP or SOB w/exception of some pain at site d/t pressure being applied. Nurse instructed to notify Dr. Hannah who did the [facility] to make him aware of the situation. His recommendation to continue monitoring the pt. closely. Pressure continued to be applied to the site until the smaller clots were disbursed. After pressure, area was now boggy and no firm areas present. Nurse instructed to continue monitoring the pt very closely and alert me immediately of any adverse changes.
[2018-09-08] MEDS: Ipratropium/Albuterol Neb 3 ML IH SCH ×2 (04:00→10:52)
[2018-09-08 05:09] LABS: Hematocrit 22.4 % (35.3-44.9); Hemoglobin 6.7 g/dL (11.5-15.4); Mean Corpuscular HGB Conc 29.9 g/dL (31.6-35.5); Mean Corpuscular Hemoglobin 30.5 pg (28.0-33.3); Mean Corpuscular Volume 101.8 fL (83.0-100.0); Mean Platelet Volume 11.6 fL (9.4-12.4); Platelet Count 210 K/mcL (140-400); Red Cell Distribution Width 15.2 % (11.5-14.5)
[2018-09-08 05:27] LABS: Calcium 7.7 mg/dL (8.6-10.3); Potassium 4.4 mEq/L (3.5-5.1)
[2018-09-08] MEDS: *HR* Heparin 5,000 UNIT/ML VIAL SQ SCH (05:43)
[2018-09-08] MEDS: *HR* HYDROcodone/Acet 5/325 mg TABLET PO PRN ×2 (05:46→16:48)
[2018-09-08] MEDS: Insulin LISPRO 300 UNITS/3 ML VIAL SQ SCH ×4 (08:48→21:13)
[2018-09-08] MEDS: predniSONE 20 MG TABLET PO SCH (08:49)
[2018-09-08] MEDS: Azithromycin 250 MG TABLET PO SCH (08:50)
[2018-09-08] MEDS: cefTRIAXone 2,000 MG in Water for inj. (sterile) 20 ML 20 ML IVP SCH (08:50)
--- NOTE | 2018-09-08 10:10 | Internal Med Progress Note ---
Hospitalist Progress Note - Encounter Date of Encounter: 09/08/18 Time of Encounter: 10:09 - Subjective Interval History: Last night had large hematoma at site of R groin cath, now extensive bruising. Hb down 2 pts. No dizziness or SOB, just has some groin discomfort from the swelling. - Exam Vitals: Temp Pulse Resp BP Pulse Ox 98.2 F 83 16 128/60 100 09/08/18 07:30 09/08/18 07:30 09/08/18 07:30 09/08/18 07:30 09/08/18 07:30 Exam: General: NAD, good eye contact, well appearing, morbidly obese, pleasant Thoracic: good air movement bilaterally, stable faint bibasilar rhonchi Cardio: Normal S1 and S2, regular rate and rhythm, no murmurs Abdomen: Soft, nontender, morbidly obese Extremities: Warm, well perfused. DP and radial pulses 2+ b/l. No edema. R groin w extensive bruising and notable swelling Skin: Intact. No rashes or ulcers Neuro: Awake, fully oriented. Speech fluent - Summary of Assessment and Plan Summary of Assessment and Plan: Delilah Richey is a 72 F w hx COPD, HFpEF, ESRD on HD, DM2, HTN, morbid obesity, who p/w SOB and CP, found to have hypoxia, leukocytosis, CXR w RML opacity, and elevated troponin, concerning for HCAP causing COPD exacerbation as well as possible ischemia. CAD s/p NSTEMI: s/p LHC w stent x1 to pRCA on 09/07, c/b groin hematoma. CT a/p this AM shows large local hematoma but no RP hematoma, also extensive vascular calcifications suggestive of PAD. - ASA 81, Lipitor 40 - new metoprolol 12.5 bid - Cardio consult, will plan for LHC today Acute blood loss anemia: 2/2 hematoma from LHC insertion site, bleeding and expansion of thigh halted, no RP bleed on CT scan - T&C - transfuse 1u prbc - trend Hb HCAP: CXR w RML opacity, recent hospitalization 2 months ago - continue Rocephin 2g daily, azithro 500 po daily, last doses today COPD w chronic hypoxic respiratory failure: acute exacerbation resolved - nebs prn - home inhalers - home supplemental O2 ESRD on HD MWF: Neph following HFpEF: volume per HD DM2: c/b renal disease and neuropathy, continue basal and SSI HTN: home meds Hypothyroidism: home synthroid Morbid Obesity: BMI 50 PPx: sqh FEN: renal ADA, no MIVF Lines: PIV Consults: Cardio, Neph Code: Full Dispo: patient requires inpatient eval and management at this time. Likely plan HD tomorrow then home Internal Medicine: Result - Labs CBC & Chem 7: 09/08/18 03:51 09/08/18 03:51 Labs: Short CBC 09/08/18 Range/Units 03:51 WBC 7.6 (4.3-11.1) K/mcL Hgb 6.7 L D (11.5-15.4) g/dL Hct 22.4 L (35.3-44.9) % Plt Count 210 (140-400) K/mcL BMP 09/08/18 03:51 Sodium 137 Potassium 4.4 Chloride 99 Carbon Dioxide 27 BUN 53 H Creatinine 4.18 H Glucose 267 H Calcium 7.7 L - ABG Interpretation ABG results: PT/INR, D-dimer PT 12.6 Seconds (9.4-12.1) H 09/03/18 07:49 - Impressions Impressions Abdomen/Pelvis CT 09/08/18 08:36 IMPRESSION: 1. Postprocedural changes within the right groin and medial right thigh with subcutaneous soft tissue stranding and skin thickening with a more focal 3.5 x 1.3 cm hematoma. 2. Similar-appearing stranding and skin thickening within the right lower quadrant in the right anterior pelvis similar in appearance to prior exam surrounding the hernia sac. Recommend correlation with any signs of infection or cellulitis. 3. No retroperitoneal hematoma. 4. Extensive vascular calcifications. Stable 1.0 cm splenic artery aneurysm. D/ / 09/08/2018 09:43:26 Tricia Thacker MD / Crystal Mahoney Interpreting Provider: Tricia Thacker MD Consult Discharge Plan - Plan Referrals: Cecy Valdez MD [Primary Care Provider] - 09/11/18 11:45 am (Please follow up as schedule...)
[2018-09-08] MEDS ORDERED: Ipratropium/Albuterol Neb 3 ML IH PRN (10:18)
[2018-09-08] MEDS: Budesonide/Formoterol 80/4.5 MDI IH SCH ×2 (10:38→20:28)
--- NOTE | 2018-09-08 10:40 | Cardiology Progress Note ---
Date of Encounter: 09/08/18 Time of Encounter: 10:38 Assessment and Plan (1) NSTEMI (non-ST elevated myocardial infarction) Current Visit: Yes Status: Acute Troponin elevated up to 2.86 and now trending down. [facility] completed 09/07/18 and she received PTCA and MAXWELL to the RCA. Mild non-obstructive disease otherwise. EF 45%. TTE- EF LVEF 50-55%. Mild segmental left ventricular systolic dysfunction. Mild concentric left ventricular hypertrophy. Moderate left ventricular diastolic dysfunction. Mild mitral regurgitation. Mild tricuspid regurgitation. No pu lmonary hypertension. She denies recurrent chest pain or SOB. Hematoma developed yesterday evening and treated with manual pressure. Vital signs remained stable through the night. Hgb decreased from 8.7 to 6.7. PRBC transfusion ordered by primary team. CT findings reviewed, negative for RP bleed. 3.5x 1.3 cm hematoma seen. Stranding and skin thickening within the right lower quadrant in the right anterior pelvis similar in appearance to prior exam surrounding the hernia sac. Recommend correlation with any signs of infection or cellulitis. Extensive vascular calcifications. Stable 1.0 cm splenic artery aneurysm. Recommend serial H/H. Monitor hematoma closely. Continue asa and plavix uninterrupted for one year. Continue statin and bb. Cardiac rehab phase I ordered. Close out-pt f/u with cardiology in 2 weeks. (2) Anemia in CKD (chronic kidney disease) Current Visit: No Status: Chronic Acute on chronic anemia d/t hematoma. PRBC transfusion ordered by primary team. Serial H/H. Qualifiers: Chronic kidney disease stage: on chronic dialysis Qualified Code(s): N18.6 - End stage renal disease; D63.1 - Anemia in chronic kidney disease; Z99.2 - Dependence on renal dialysis (3) HCAP (healthcare-associated pneumonia) Current Visit: No Status: Acute continue treatment per primary team (4) Morbid obesity with BMI of 50.0-59.9, adult Current Visit: No Status: Chronic Discussion w patient/family: The assessment and plan as outlined above was discussed with the patient and/or family members who expressed understanding and agreement. All questions were answered. Thank you for involving us in the care of your patient. Please call with any questions. Subjective Principal diagnosis: Pneumonia; elevated troponin Interval history: Ms. Richey is s/p C for NSTEMI. Noted patient developed hematoma yesterday evening. Hematoma improved after manual pressure. Pt denies pain. Mild tenderness right groin with palpation. Denies chest pain or SOB. States she is otherwise feeling well. Objective Vital Signs, Last 4 Hours Temp Pulse Resp BP Pulse Ox 09/08/18 10:31 97.7 F 16 118/43 100 09/08/18 10:16 97.9 F 80 16 113/44 09/08/18 07:30 98.2 F 83 16 128/60 100 Results 09/08/18 03:51 09/08/18 03:51 Lab Results 09/08/18 09/08/18 03:51 03:51 WBC 7.6 Hgb 6.7 L D Hct 22.4 L Plt Count 210 Sodium 137 Potassium 4.4 Chloride 99 Carbon Dioxide 27 BUN 53 H Creatinine 4.18 H Glucose 267 H Calcium 7.7 L - Imaging and Cardiology Echo: report reviewed Cardiac cath: report reviewed - EKG Interpretation EKG results cardiology: personally reviewed Consult Discharge Plan - Plan Referrals: Cecy Valdez MD [Primary Care Provider] - 09/11/18 11:45 am (Please follow up as schedule...)
[2018-09-08 14:11] LABS: Hematocrit 17.9 % (35.3-44.9)
[2018-09-08 14:24] LABS: Hemoglobin 5.3 g/dL (11.5-15.4)
--- NOTE | 2018-09-08 14:49 | Event Note ---
Date of Encounter: 09/08/18 Time of Encounter: 14:46 - Cardiology Event Note Repeat Hgb 5.3 despite blood transfusion. Right groin does not appear to have changed significantly from previous exam. Golf ball sized hematoma with ecchymosis. Right thigh is soft and more boggy than previous. Repeat PRBC transfusion ordered Stat with h/h re-check. Patient continues to be normotensive. Admits to fatigue. No other complaints. Discussed with Dr. Britt and vascular surgery consult is recommended. I called and informed Dr. Dangelo. Right groin US ordered to r/o pseudo aneurysm. Patient will remain on bedrest with frequent groin checks.
[2018-09-08] MEDS ORDERED: Furosemide 40 MG/4 ML VIAL IVP ONE (16:19)
[2018-09-08] MEDS ORDERED: 0.9 % Sodium Chloride 250 ML IVC PRN (16:42)
[2018-09-08] MEDS ORDERED: 0.9 % Sodium Chloride 1,000 ML ONE (16:44)
--- NOTE | 2018-09-08 16:47 | Nephrology Progress Note ---
Date of Encounter: 09/08/18 Time of Encounter: 16:45 - Assessment and Plan (1) End stage renal disease Current Visit: Yes Status: Chronic HD ordered sooner (see below). Discussed in detail with the hospitalist. I reviewed the pt's vital sign and lab trends, meds, I/Os and progress notes, which I used to evaluate and then compose HD orders. Thank you. (2) Dyspnea Current Visit: Yes Status: Acute Qualifiers: Dyspnea type: dyspnea on exertion Qualified Code(s): R06.09 - Other forms of dyspnea (3) Anemia Current Visit: No Status: Chronic With the rapidly worsening anemia and need for large volume of PRBCs, then I would recommend having her undergo HD today (Friday), which will help lessen the risks associated with her dyspnea and volume status and lessen the odds of intubation with such transfusions. Qualifiers: Anemia type: other cause Other causes of anemia: chronic disease, neoplastic Qualified Code(s): D63.0 - Anemia in neoplastic disease Subjective Principal diagnosis: Pneumonia; elevated troponin Interval history: Pt was s/e while on HD. She did not affirm N/V/D or cramping while on HD. I updated the patient and her about the addition on for dialysis today cause of the need for blood products. Objective - Vital Signs Vital signs: Vital Signs Temp Pulse Resp BP Pulse Ox 09/08/18 15:20 98.2 F 78 16 124/70 100 09/08/18 15:15 98.1 F 82 16 115/65 100 09/08/18 13:01 97.8 F 76 16 122/62 99 09/08/18 11:04 98.1 F 83 16 91/40 100 09/08/18 10:58 18 100 09/08/18 10:31 97.7 F 16 118/43 100 09/08/18 10:16 97.9 F 80 16 113/44 09/08/18 07:30 98.2 F 83 16 128/60 100 09/08/18 04:01 18 99 09/08/18 03:34 98 F 89 16 108/57 100 09/07/18 23:37 98.1 F 85 16 102/37 99 09/07/18 22:04 18 100 09/07/18 20:46 110 17 94/55 100 09/07/18 18:47 98.1 F 100 17 104/53 99 09/07/18 17:21 98.4 F 96 18 123/66 97 Intake and Output 09/08/18 09/08/18 09/08/18 07:59 15:59 23:59 Intake Total 1140 / 1140 Balance 1140 / 1140 Intake: Oral 240 / 240 Blood Product 900 / 900 Rbcs Leuko Poor As-1 Unit 600 / 600 [id number] Rbcs Leuko Poor As-3 2nd Unit 300 / 300 [id number] Other: Meal Lunch Percent of Meal Consumed 20% Stool Size Moderate Stool Consistency loose Stool Color Black Blood Glucose* 294 310 298 - General Appearance General appearance: Present: well-developed, well-nourished, obese, moderate distress, frail EENT: Present: ATNC, mucous membranes moist Additional Comments: Palor Neck: Present: supple Respiratory: Present: course breath sounds Cardiology: Present: edema, regular rate, normal S1, normal S2 Dialysis Vascular Access: Arteriovenous Fistula (left upper arm) thrill: Yes bruit: Yes Gastrointestinal: Present: normoactive bowel sounds, no guarding, obese Integumentary: Present: warm and dry Neurologic: Present: no focal deficit, no asterixis Musculoskeletal: Present: no cyanosis, no clubbing Psychiatric: Present: mood/affect appropriate, cooperative - Lab 09/08/18 13:33 09/08/18 03:51 Most recent lab results 09/08/18 03:51 Calcium 7.7 L Consult Discharge Plan - Plan Referrals: Cecy Valdez MD [Primary Care Provider] - 09/11/18 11:45 am (Please follow up as schedule...)
[2018-09-08] MEDS: Lactobacillus 1 EACH CAP.SPRINK PO SCH ×2 (16:49→16:50)
[2018-09-08] MEDS ORDERED: Albumin 25% 12.5gm/50mL 25.0 GM/100 ML IV.SOLN ONE (18:05)
[2018-09-08] MEDS ORDERED: Albumin 25% 25gram/100mL 25 GM/100 ML IV.SOLN IVPB ONE (18:18)
--- NOTE | 2018-09-08 19:58 | Vascular/Endovasc Consult Note ---
Date of Encounter: 09/08/18 Time of Encounter: 16:00 Assessment and Plan (1) Anemia in CKD (chronic kidney disease) Current Visit: No Status: Chronic The patient has chronic anemia that is made worse by recent hospitalization as well as dilution and blood in her right thigh. There does not appear to be active bleeding at this time at the right groin or right thigh region. I do not recommend angiography or surgical exploration. Would recommend medical treatment and transfusion as hemodynamically indicated. Qualifiers: Chronic kidney disease stage: on chronic dialysis Qualified Code(s): N18.6 - End stage renal disease; D63.1 - Anemia in chronic kidney disease; Z99.2 - Dependence on renal dialysis (2) Morbid obesity with BMI of 50.0-59.9, adult Current Visit: No Status: Chronic Patient has marked truncal obesity and also has a large ventral hernia. - History of Present Illness Consult date: 09/08/18 Consult reason: Right groin hematoma and anemia Chief complaint: Right groin pain History of present illness: Ms. Richey is a 72 year old female Would undergone a right groin cardiac catheterization yesterday. Post procedure the patient noted pain and swelling in the right groin area. This led to further evaluation today when a non-contrast CT scan was performed. This demonstrated hematoma as well as signs of edema into the soft tissue of the proximal right thigh. A retroperitoneal hematoma was not identified. A duplex scan was then also performed of the right groin. I have personally reviewed the images of both of these studies. The duplex scan does not demonstrate a right femoral pseudoane urysm or arteriovenous fistula. There is no signs of arterial dissection. The patient was noted to be significantly anemic. The patient has chronic anemia due to kidney disease and is in end-stage kidney disease. The patient had been transfused 1 unit packed red blood cells and had a follow-up hemoglobin of 5.3. Vascular surgery was asked to see the patient to recheck exam and noninvasive and CT scan findings. Past Med Surg Social Fam HX - Past Medical History Medical history: arthritis, asthma, CHF, COPD, diabetes, dialysis, GERD, hyperlipidemia, hypertension, osteoporosis, renal disease, thyroid disease, other Additional medical history: IDDM,osteoarthitis,steel from AV-fistula,kidney disease,onychomycosis, Psychiatric history: no psych history - Past Surgical History Surgical History: cataract, cholecystectomy, herniorrhaphy, other Additional surgical history: gastric by pass,T&A,l arm dialysis fistula,bypass around fistula,hernia stomach,angioplasty l arm, bypass l arm - Social History Smoking Status: Never smoker Smokeless Tobacco Status: No Alcohol use: none Drug use: none - Family History Father Living Status: Hx Family Cardiac Disorders: Yes Hx Family Cancer: Yes (Bone CA) Medications and Allergies Atorvastatin [Lipitor] 40 mg PO QPM 01/16/15 [History] Gabapentin [Neurontin] 100 - 300 mg PO HS PRN 08/13/16 [History] Lactobacillus Combination No.8 [Adult Probiotic] 1 cap PO QPM 08/13/16 [History] Multivitamin [Multivitamins] 1 tab PO DAILY 08/13/16 [History] Sodium Bicarbonate 650 mg PO TID 08/13/16 [History] Calcium Acetate [Phos-LO] 2,001 mg PO TIDWM 10/31/16 [History] Insulin Regular, Human [Novolin R] 0 unit SQ TIDAC PRN 10/31/16 [History] Oxygen 2 l NS HS 10/31/16 [History] Fluticasone Propionate Nasal [Flonase] 2 spr NS BID PRN 07/01/17 [History] Fluticasone/Salmeterol [Advair 250-50 Diskus] 1 puff IH BID 07/01/17 [History] HYDROcodone/Acet 5/325 mg [Hoven 5-325 mg] 1 tab PO Q6H PRN 5 Days #20 tab 07/01 [Rx] Aspirin [Adult Aspirin Regimen] 81 mg PO QPM 09/02/18 [History] Calcium Acetate [Phos-LO] 1,334 mg PO DAILY 09/02/18 [History] Ergocalciferol (VITAMIN D2) [Vitamin D2] 50,000 unit PO SA 09/02/18 [History] Levothyroxine Sodium 50 mcg PO QAM 09/02/18 [History] Psyllium Husk [Fiber] 0.52 gm PO DAILY 09/02/18 [History] Silver Sulfadiazine [Ssd] 1 appl NS HS 09/02/18 [History] raNITIdine HCl [Zantac] 300 mg PO QPM 09/02/18 [History] Allergy/AdvReac Type Severity Reaction Status Date / Time levofloxacin Allergy Severe "HIVES, Verified 09/02/18 21:06 ITCHING, BURNING" All Systems Review: The remainder of the systems were reviewed and are negative Exam Vital Signs, Last 4 Hours Temp Pulse Resp BP Pulse Ox 09/08/18 19:04 97.8 F 71 14 77/27 100 09/08/18 18:55 97.5 F L 15 124/56 09/08/18 18:35 100/45 09/08/18 18:30 89/54 09/08/18 18:15 93/54 09/08/18 18:00 103/56 09/08/18 17:45 97.2 F L 15 77/54 General: Present: Conversant, Other (Patient is an obese elderly white female who does not appear well. She had been recently transferred to [facility].) HEENT: Present: Atraumatic, Normocephaly, Trachea midline Abdomen: Present: Soft, Non-tender, Other (Obese with marked panniculus.) Vascular: Present: Pulse, diminished, Color/Temperature (Patient has ecchymosis on the anterior and medial aspect of the proximal right thigh. The dressing placed from her cardiac catheterization is intact. There is no signs of a expanding hematoma. There is no pulsatility to the groin area or to the upper thigh.) Consult Discharge Plan - Plan Referrals: Cecy Valdez MD [Primary Care Provider] - 09/11/18 11:45 am (Please follow up as schedule...)
[2018-09-08 19:59] LABS: Hemoglobin 5.7 g/dL (11.5-15.4)
[2018-09-08] MEDS: Gabapentin 100 MG CAPSULE PO SCH (20:56)
[2018-09-08] MEDS: Aspirin Enteric Coated 81 MG Tablet PO SCH (20:56)
[2018-09-08] MEDS ORDERED: 0.9 % Sodium Chloride 250 ML ONE (21:26)
[2018-09-09 03:20] LABS: Hematocrit 25.1 % (35.3-44.9); Mean Corpuscular HGB Conc 32.3 g/dL (31.6-35.5); Mean Corpuscular Hemoglobin 29.2 pg (28.0-33.3); Mean Platelet Volume 10.8 fL (9.4-12.4); Platelet Count 204 K/mcL (140-400); Red Blood Count 2.77 M/mcL (3.82-4.97); Red Cell Distribution Width 16.3 % (11.5-14.5)
[2018-09-09 03:21] LABS: Hemoglobin 8.1 g/dL (11.5-15.4); Mean Corpuscular Volume 90.6 fL (83.0-100.0)
[2018-09-09 03:44] LABS: Calcium 8.3 mg/dL (8.6-10.3); Potassium 4.3 mEq/L (3.5-5.1)
[2018-09-09 04:24] LABS: Adenovirus Not Detected (Not Detect); Bordetella Pertussis Not Detected (Not Detect); Chlamydophila pneumoniae Not Detected (Not Detect); Coronavirus 229E Not Detected (Not Detect); Coronavirus HKU1 Not Detected (Not Detect); Coronavirus NL63 Not Detected (Not Detect); Coronavirus OC43 Not Detected (Not Detect); Human Metapneumovirus Not Detected (Not Detect); Human Rhinovirus/Enterovirus Not Detected (Not Detect); Influenza A Subtype 2009 H1 Not Detected (Not Detect); Influenza A Untypeable Not Detected (Not Detect); Influenza B Not Detected (Not Detect); Mycoplasma pneumoniae Not Detected (Not Detect); Parainfluenza Virus 1 Not Detected (Not Detect); Parainfluenza Virus 2 Not Detected (Not Detect); Parainfluenza Virus 3 Not Detected (Not Detect); Parainfluenza Virus 4 Not Detected (Not Detect); Respiratory Syncytial Virus Not Detected (Not Detect)
[2018-09-09] MEDS: Budesonide/Formoterol 80/4.5 MDI IH SCH ×2 (07:58→20:32)
[2018-09-09] MEDS: *HR* HYDROcodone/Acet 5/325 mg TABLET PO PRN ×2 (08:02→23:41)
[2018-09-09] MEDS: Insulin LISPRO 300 UNITS/3 ML VIAL SQ SCH ×4 (08:04→20:35)
--- NOTE | 2018-09-09 08:29 | Nephrology Progress Note ---
Date of Encounter: 09/09/18 Time of Encounter: 13:35 - Assessment and Plan (1) End stage renal disease Current Visit: Yes Status: Chronic Because of her significantly dropping hemoglobin, she received multiple units of blood transfusions yesterday, which was why I dialyzed her on Friday (her typical dialysis days are Friday/Friday/Friday. Given that she dialyzed yesterday, which she did not tolerate well and the treatment had to be aborted early, so I will hold on dialysis today. I will closely monitor her volume status. Continue to follow a renal protective strategy: Strict I's and O's, daily weights, avoidance of nephrotoxins as able, renal dosing. Thank you. (2) Dyspnea Current Visit: Yes Status: Acute As per primary. HD changed to TTS d/t her transfusion/volume of infusions. She does not make much if any UOP anymore. Qualifiers: Dyspnea type: dyspnea on exertion Qualified Code(s): R06.09 - Other forms o f dyspnea (3) Anemia Current Visit: No Status: Chronic Multifactorial and Acute on chronic: Goal Hgb is 10-11 in ESRD patients. Recommend ANAMIKA to assist, which she typically requires as a baseline chronically. Transfusion paramters per primary team Suspect active GIB/blood loss anemia. 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 She affirmed feeling fatigued, but no active chest pain. She reported diminished appetite sensations. She did not affirm active nausea or vomiting. Objective - Vital Signs Vital signs: Vital Signs Temp Pulse Resp BP Pulse Ox 09/09/18 08:00 18 93 09/09/18 07:01 98.6 F 96 16 109/88 93 09/09/18 05:00 93 119/49 09/09/18 04:00 98.3 F 90 19 127/61 92 09/09/18 03:00 106 101/55 09/09/18 02:00 113 100/51 09/09/18 00:32 97.6 F 116 112/99 95 09/09/18 00:17 98.0 F 106 16 100/42 100 09/09/18 00:11 98.0 F 99 18 89/70 98 09/08/18 23:00 97.9 F 110 18 88/54 97 09/08/18 22:00 112 100/53 09/08/18 21:48 97.1 F L 106 16 79/41 98 09/08/18 21:33 97.8 F 107 16 79/60 98 09/08/18 21:27 97.5 F L 101 18 70/54 100 09/08/18 21:00 106 79/60 09/08/18 20:28 14 100 09/08/18 20:15 97.7 F 96 17 90/65 100 09/08/18 20:00 84 96/42 09/08/18 19:04 97.8 F 71 14 77/27 100 09/08/18 19:00 75 87/64 09/08/18 18:55 97.5 F L 15 124/56 09/08/18 18:35 100/45 09/08/18 18:30 89/54 09/08/18 18:15 93/54 09/08/18 18:00 103/56 09/08/18 17:45 97.2 F L 15 77/54 09/08/18 15:20 98.2 F 78 16 124/70 100 09/08/18 15:15 98.1 F 82 16 115/65 100 09/08/18 13:01 97.8 F 76 16 122/62 99 09/08/18 11:04 98.1 F 83 16 91/40 100 09/08/18 10:58 18 100 09/08/18 10:31 97.7 F 16 118/43 100 09/08/18 10:16 97.9 F 80 16 113/44 Intake and Output 09/08/18 09/09/18 09/09/18 23:59 07:59 15:59 Intake Total 1250 / 2390 350 / 350 Balance 1250 / 2390 350 / 350 Intake: Oral 0 / 240 Blood Product 650 / 1550 350 / 350 Rbcs Leuko Poor As-1 Unit 350 / 350 [id number] Rbcs Leuko Poor As-1 Unit 350 / 350 [id number] Rbcs Leuko Poor As-3 2nd Unit 300 / 600 [id number] Intake, Rinseback and Flushes 600 / 600 Other: Meal Dinner Percent of Meal Consumed 0% Stool Size Small Large Stool Consistency liquid loose Stool Color Brown Black Black Dark Red Blood # Bowel Movements 1 1 Weight 114 kg Blood Glucose* 329 284 Hemodialysis Net Fluid Removed 0 (mL) Patient Weight 09/09/18 23:59 Weight 114 kg - General Appearance Exam: General appearance: Present: well-developed, well-nourished, obese, moderate distress, frail EENT: Present: ATNC, mucous membranes moist Additional Comments: Palor Neck: Present: supple Respiratory: Present: course breath sounds Cardiology: Present: trace ankle edema, regular rate, normal S1, normal S2 Dialysis Vascular Access: Arteriovenous Fistula (left upper arm) thrill: Yes bruit: Yes Gastrointestinal: Present: normoactive bowel sounds, no guarding, obese Integumentary: Present: warm and dry Neurologic: Present: no focal deficit, no asterixis Musculoskeletal: Present: no cyanosis, no clubbing Psychiatric: Present: mood/affect appropriate, cooperative - Lab 09/11/18 05:04 09/11/18 05:04 Most recent lab results 09/09/18 03:09 Calcium 8.3 L Consult Discharge Plan - Plan Referrals: Cecy Valdez MD [Primary Care Provider] - 09/21/18 11:45 am ()
--- NOTE | 2018-09-09 09:46 | Vascular/Endovas Progress Note ---
Date of Encounter: 09/09/18 Time of Encounter: 08:30 - Assessment and plan (1) Anemia in CKD (chronic kidney disease) Current Visit: No Status: Chronic The patient has chronic anemia that is made worse by recent hospitalization as well as dilution and blood in her right thigh. There does not appear to be active bleeding at this time at the right groin or right thigh region. I do not recommend angiography or surgical exploration. Would recommend medical treatment and transfusion as hemodynamically indicated. Patient has improved with transfusions from yesterday. Patient remains hemodynamically stable overnight. Vascular surgery will sign off case for now. Please reconsult when necessary. Qualifiers: Chronic kidney disease stage: on chronic dialysis Qualified Code(s): N18.6 - End stage renal disease; D63.1 - Anemia in chronic kidney disease; Z99.2 - Dependence on renal dialysis (2) Morbid obesity with BMI of 50.0-59.9, adult Current Visit: No Status: Chronic Patient has marked truncal obesity and also has a large ventral hernia. - Subjective Interval history: No new complaints. Feeling better overnight. Total of 4 units of PRBC;s transfused yesterday. Hgb up but remains anemic. Vital Signs, Last 4 Hours Temp Pulse Resp BP Pulse Ox 09/09/18 08:42 114 18 09/09/18 08:00 18 93 09/09/18 07:01 98.6 F 96 16 109/88 93 - Physical Examination General: Present: Conversant, No Apparent Distress HEENT: Present: Atraumatic Vascular: Present: Other (Patient has ecchymosis in the right anterior thigh and medial thigh. Right groin puncture site from cardiac catheter is in position. No masses in thigh.) Results 09/09/18 03:09 09/09/18 03:09 Lab Results, Last 24 hours 09/08/18 09/08/18 09/09/18 13:33 19:34 03:09 WBC 20.8 H D Hgb 5.3 L* 5.7 L* 8.1 L D Hct 17.9 L 18.0 L 25.1 L Plt Count 204 Sodium Potassium Chloride Carbon Dioxide BUN Creatinine Glucose Calcium 09/09/18 03:09 WBC Hgb Hct Plt Count Sodium 138 Potassium 4.3 Chloride 97 L Carbon Dioxide 27 BUN 83 H Creatinine 4.75 H Glucose 266 H Calcium 8.3 L Consult Discharge Plan - Plan Referrals: Griselda-Cordova,Cecy M, MD [Primary Care Provider] - 09/14/18 11:45 am (Your appointment for September 11 @ 1144 has been cancelled)
--- NOTE | 2018-09-09 14:08 | Internal Med Progress Note ---
Hospitalist Progress Note - Encounter Date of Encounter: 09/09/18 Time of Encounter: 14:04 - Subjective Interval History: Yesterday was challenging; throughout day had worsening Hb requiring total 4u transfusions to maintain blood pressure and get levels back up. Pt taken for urgent HD last night but did not tolerate any fluid removal due to hypotension. However, overnight improved and today feels much better, no longer scared. No SOB, no cough, no CP, no N/V/D. R thigh not any more swollen than yesterday. - Exam Vitals: Temp Pulse Resp BP Pulse Ox 98.2 F 98 18 111/61 95 09/09/18 11:15 09/09/18 11:15 09/09/18 11:15 09/09/18 11:15 09/09/18 11:15 Exam: General: NAD, good eye contact, well appearing, morbidly obese, pleasant, slight pallor today Thoracic: good air movement bilaterally, stable faint bibasilar rhonchi Cardio: Normal S1 and S2, regular rate and rhythm, no murmurs Abdomen: Soft, nontender, morbidly obese Extremities: Warm, well perfused. DP and radial pulses 2+ b/l. No edema. R groin w extensive dependent bruising but unchanged from yesterday Skin: Intact. No rashes or ulcers Neuro: Awake, fully oriented. Speech fluent - Summary of Assessment and Plan Summary of Assessment and Plan: Delilah Richey is a 72 F w hx COPD, HFpEF, ESRD on HD, DM2, HTN, morbid obesity, who p/w SOB and CP, found to have hypoxia, leukocytosis, CXR w RML opacity, and elevated troponin, concerning for HCAP causing COPD exacerbation as well as possible ischemia. CAD s/p NSTEMI: s/p LHC w stent x1 to pRCA on 09/07, c/b groin hematoma. CT a/p 09/08 showed large local hematoma but no RP hematoma, also extensive vascular calcifications suggestive of PAD. - ASA 81, Lipitor 40 - new metoprolol 12.5 bid - Cardio following Acute blood loss anemia: 2/2 hematoma from LHC insertion site, bleeding and expansion of thigh halted, no RP bleed on CT scan but did become hypotensive last night. - maintain T&C - Hb stable today and thus no transfusion today, is s/p 4u prbc - repeat CBC later today - VascSurg consulted, appreciate evaluation; no need for surgical intervention at this time Leukocytosis: suspect reactive 2/2 hypotension and transfusions, no fever or other infectious s/sx, will monitor HCAP: completed course of rocephin/azithro while inpatient COPD w chronic hypoxic respiratory failure: acute exacerbation resolved, continue home inhalers, O2, and nebs prn ESRD on HD MWF: Neph following HFpEF: volume per HD DM2: c/b renal disease and neuropathy, continue basal and SSI HTN: home meds Hypothyroidism: home synthroid Morbid Obesity: BMI 50 PPx: sqh FEN: renal ADA, no MIVF Lines: PIV Consults: Cardio, Neph Code: Full Dispo: patient requires inpatient eval and management at this time. Likely plan HD today, monitor overnight, and possible d/c tomorrow Internal Medicine: Result - Labs CBC & Chem 7: 09/09/18 03:09 09/09/18 03:09 Labs: Short CBC 09/08/18 09/08/18 09/09/18 Range/Units 13:33 19:34 03:09 WBC 20.8 H D (4.3-11.1) K/mcL Hgb 5.3 L* 5.7 L* 8.1 L D (11.5-15.4) g/dL Hct 17.9 L 18.0 L 25.1 L (35.3-44.9) % Plt Count 204 (140-400) K/mcL BMP 09/09/18 03:09 Sodium 138 Potassium 4.3 Chloride 97 L Carbon Dioxide 27 BUN 83 H Creatinine 4.75 H Glucose 266 H Calcium 8.3 L - ABG Interpretation ABG results: PT/INR, D-dimer PT 12.6 Seconds (9.4-12.1) H 09/03/18 07:49 Consult Discharge Plan - Plan Referrals: Cecy Valdez MD [Primary Care Provider] - 09/14/18 11:45 am (Your appointment for September 11 @ 4495 has been cancelled)
[2018-09-09 14:28] LABS: Hematocrit 21.8 % (35.3-44.9); Mean Corpuscular HGB Conc 32.1 g/dL (31.6-35.5); Mean Corpuscular Hemoglobin 29.4 pg (28.0-33.3); Mean Corpuscular Volume 91.6 fL (83.0-100.0); Mean Platelet Volume 11.4 fL (9.4-12.4); Platelet Count 227 K/mcL (140-400); Red Blood Count 2.38 M/mcL (3.82-4.97); Red Cell Distribution Width 17.8 % (11.5-14.5)
--- NOTE | 2018-09-09 15:48 | Event Note ---
Date of Encounter: 09/09/18 Time of Encounter: 15:47 - Cardiology Event Note Arterial duplex shows the right common femoral and proximal superficial femoral arteries are patent. No pseudoaneurysm or aneurysm identified. Vascular was consulted, does not appear to be active bleeding at this time at the right groin or right thigh region. They do not recommend angiography or surgical exploration. Recommend medical treatment and transfusion as hemodynamically indicated. HGB this AM 8.1. Checked at [address] Britt discussed with hospitalist. Plans to recheck HGB. If continues to decline, consider GI consult. Stool occult blood negative. Continue DAPT (ASA and Plavix) uninterrupted x 1 year given PCI during stay. Cardiology signing off. Reconsult PRN. Will coordinate outpt follow-up in 1 week.
[2018-09-09 18:26] LABS: Hematocrit 21.4 % (35.3-44.9); Hemoglobin 7.2 g/dL (11.5-15.4)
[2018-09-09] MEDS: Gabapentin 100 MG CAPSULE PO SCH (20:34)
[2018-09-09] MEDS: Aspirin Enteric Coated 81 MG Tablet PO SCH (20:35)
[2018-09-09] MEDS ORDERED: 0.9 % Sodium Chloride 250 ML ONE (21:27)
[2018-09-10 05:16] LABS: Basophils % 0.1 %; Eosinophils # 0.1 K/mcL (0.0-0.6); Eosinophils % 0.4 %; Hematocrit 22.6 % (35.3-44.9); Hemoglobin 7.6 g/dL (11.5-15.4); Immature Granulocytes % 4.3 % (0-4); Lymphocytes # 2.2 K/mcL (0.6-4.6); Lymphocytes % 10.9 %; Mean Corpuscular HGB Conc 33.6 g/dL (31.6-35.5); Mean Corpuscular Hemoglobin 30.8 pg (28.0-33.3); Mean Corpuscular Volume 91.5 fL (83.0-100.0); Mean Platelet Volume 11.2 fL (9.4-12.4); Monocytes # 0.9 K/mcL (0.0-1.3); Monocytes % 4.5 %; Neutrophils # 16.2 K/mcL (1.6-8.9); Nucleated Red Blood Cells 0.6 /100 WBC (0); Platelet Count 176 K/mcL (140-400); Red Blood Count 2.47 M/mcL (3.82-4.97); Red Cell Distribution Width 16.4 % (11.5-14.5); Segmented Neutrophils % 79.8 %
[2018-09-10 05:29] LABS: Calcium 7.5 mg/dL (8.6-10.3); Potassium 4.4 mEq/L (3.5-5.1)
[2018-09-10] MEDS ORDERED: Albumin 25% 25gram/100mL 25 GM/100 ML IV.SOLN IVPB PRN (07:15)
[2018-09-10] MEDS ORDERED: 0.9 % Sodium Chloride 250 ML IVC PRN (07:15)
[2018-09-10] MEDS: *HR* HYDROcodone/Acet 5/325 mg TABLET PO PRN ×2 (07:36→14:20)
[2018-09-10] MEDS: Insulin LISPRO 300 UNITS/3 ML VIAL SQ SCH ×4 (07:37→22:09)
[2018-09-10] MEDS: Budesonide/Formoterol 80/4.5 MDI IH SCH ×2 (07:51→22:32)
[2018-09-10] MEDS: Levothyroxine 25 MCG TABLET PO SCH (10:27)
--- NOTE | 2018-09-10 11:30 | Internal Med Progress Note ---
Hospitalist Progress Note - Encounter Date of Encounter: 09/10/18 Time of Encounter: 11:19 - Subjective Interval History: Feels a little more tired today than in previous days. Had a 5th transfusion last night. No SOB, doing well on room air at rest. No CP, N/V. Does have some looser stools yesterday which she says the RN said was dark/black. - Exam Vitals: Temp Pulse Resp BP Pulse Ox 97.9 F 80 17 108/42 94 09/10/18 07:15 09/10/18 07:15 09/10/18 07:52 09/10/18 07:15 09/10/18 07:52 Exam: General: NAD, good eye contact, overall has slightly sickish (seemingly more pale and slightly yellow/sallow) appearance today, morbidly obese, pleasant Thoracic: good air movement bilaterally, stable faint bibasilar rhonchi Cardio: Normal S1 and S2, regular rate and rhythm, no murmurs Abdomen: Soft, nontender, morbidly obese Extremities: Warm, well perfused. DP and radial pulses 2+ b/l. No edema. R groin w extensive dependent bruising but unchanged from yesterday Skin: Intact. No rashes or ulcers Neuro: Awake, fully oriented. Speech fluent - Summary of Assessment and Plan Summary of Assessment and Plan: Delilah Richey is a 72 F w hx COPD, HFpEF, ESRD on HD, DM2, HTN, morbid obesity, who p/w SOB and CP, found to have hypoxia, leukocytosis, CXR w RML opacity, and elevated troponin, concerning for HCAP causing COPD exacerbation as well as possible ischemia. Acute blood loss anemia: suspect multifactorial, initially thought 2/2 large hematoma at LHC insertion site, but this is stable in size with hemostasis achieved. Has required in total 5 units transfused including 1 last night for Hb 7 and SBP 90s. Unclear why keeps dropping. Per RN and patient, some looser stools that are quite dark in appearance, and pt did just start DAPT earlier this week. - maintain T&C - repeat CBC later today - Cardio and VascSurg consulted, appreciate evaluation; no need for surgical intervention at this time for R groin hematoma - will consult GI today for consideration toward EGD/colonoscopy R groin hematoma: at site of LHC, CT a/p 09/08 showed large local hematoma but no RP hematoma, VascSurg evaluted w arterial doppler and no pseudoaneurysm or need for intervention CAD s/p NSTEMI: s/p LHC w stent x1 to pRCA on 09/07, c/b groin hematoma. CT a/p 09/08 showed large local hematoma but no RP hematoma, also extensive vascular calcifications suggestive of PAD. - ASA 81, Lipitor 40 - new metoprolol 12.5 bid - Cardio following Leukocytosis: suspect reactive 2/2 hypotension and transfusions, no fever or other infectious s/sx, will monitor HCAP: completed course of rocephin/azithro while inpatient COPD w chronic hypoxic respiratory failure: acute exacerbation resolved, continue home inhalers, O2, and nebs prn ESRD on HD MWF: Neph following HFpEF: volume per HD DM2: c/b renal disease and neuropathy, continue basal and SSI HTN: home meds Hypothyroidism: home synthroid Morbid Obesity: BMI 50 PPx: sqh FEN: renal ADA, no MIVF Lines: PIV Consults: Cardio, Neph Code: Full Dispo: patient requires inpatient eval and management at this time for ongoing blood loss, anticipate 2-3 more days, will be homegoing Internal Medicine: Result - Labs CBC & Chem 7: 09/10/18 04:59 09/10/18 04:59 Labs: Short CBC 09/09/18 09/09/18 09/10/18 Range/Units 14:04 18:13 04:59 WBC 23.8 H 20.3 H (4.3-11.1) K/mcL Hgb 7.0 L 7.2 L 7.6 L (11.5-15.4) g/dL Hct 21.8 L 21.4 L 22.6 L (35.3-44.9) % Plt Count 227 176 (140-400) K/mcL Neutrophils # 16.2 H (1.6-8.9) K/mcL BMP 09/10/18 04:59 Sodium 138 Potassium 4.4 Chloride 99 Carbon Dioxide 25 BUN 105 H Creatinine 5.98 H Glucose 195 H Calcium 7.5 L - ABG Interpretation ABG results: PT/INR, D-dimer PT 12.6 Seconds (9.4-12.1) H 09/03/18 07:49 - Impressions Impressions Abdomen/Pelvis CT 09/08/18 08:36 IMPRESSION: 1. Postprocedural changes within the right groin and medial right thigh with subcutaneous soft tissue stranding and skin thickening with a more focal 3.5 x 1.3 cm hematoma. 2. Similar-appearing stranding and skin thickening within the right lower quadrant in the right anterior pelvis similar in appearance to prior exam surrounding the hernia sac. Recommend correlation with any signs of infection or cellulitis. 3. No retroperitoneal hematoma. 4. Extensive vascular calcifications. Stable 1.0 cm splenic artery aneurysm. D/ / 09/08/2018 09:43:26 Tricia Thacker MD / Crystal Mahoney Interpreting Provider: Tricia Thacker MD Consult Discharge Plan - Plan Referrals: Cecy Valdez MD [Primary Care Provider] - 09/14/18 11:45 am (Your appointment for September 11 @ 1145 has been cancelled)
--- NOTE | 2018-09-10 12:40 | Gastroenterology Consult Note ---
<Francy Regalado - Last Filed: 09/10/18 12:34> Date of Encounter: 09/10/18 Time of Encounter: 12:15 - Assessment and plan (1) Anemia Current Visit: No Status: Chronic Assessment and plan: Anemia could be related to large hematomas however she is reporting black tarry stools. She needs an EGD and colonoscopy to rule out GI bleeding. Will prep and plan for EGD/colon tomorrow. Qualifiers: Anemia type: other cause Other causes of anemia: chronic disease, ge plastic Qualified Code(s): D63.0 - Anemia in neoplastic disease (2) ESRD (end stage renal disease) on dialysis Current Visit: No Status: Chronic - Time Spent With Patient Total time spent is greater than 50% in coordination of care (as documented) at patient's floor/unit and/or counseling patient: GI History of Present Illness - Data of Consult Patient: known to practice within the last 3 years Consult date: 09/10/18 Requesting Physician: Morgan Tran - Consult Narrative Reason for consult: anemia/melena History of present illness: Ms Richey is a 72 year old female with a pmhx of arthritis, asthma, CHF, COPD, diabetes, dialysis, GERD, hyperlipidemia, hypertension, osteoporosis, renal disease, thyroid disease, IDDM,osteoarthitis,steel from AV-fistula,kidney disease,onychomycosis She presented with shortness of breath and was treated for COPD and pneumonia. She also had an elevated troponin status post left heart catheter with stent placement on 09/07/2018. She developed large hematoma to her right groin and right arm. Hemoglobin dropped from a baseline of 11 to a low of 5.3 on 09/08/2018. She has been transfused 5 units packed red blood cells and hemoglobin is currently 7.6. She does report diarrhea with black tarry stools. She denies any abdominal pain nausea or vomiting. Colonoscopy: 6 colon polyps, largest 6 mm. NSAIDs: Aspirin 81 mg Anticoagulants: Plavix, heparin subcutaneous. Past Med Surg Social Fam HX - Past Medical History Medical history: arthritis, asthma, CHF, COPD, diabetes, dialysis, GERD, hyperlipidemia, hypertension, osteoporosis, renal disease, thyroid disease, other Additional medical history: IDDM,osteoarthitis,steel from AV-fistula,kidney disease,onychomycosis, Psychiatric history: no psych history - Past Surgical History Surgical History: cataract, cholecystectomy, herniorrhaphy, other Additional surgical history: gastric by pass,T&A,l arm dialysis fistula,bypass around fistula,hernia stomach,angioplasty l arm, bypass l arm - Social History Smoking Status: Never smoker Smokeless Tobacco Status: No Alcohol use: none Drug use: none - Family History Father Living Status: Hx Family Cardiac Disorders: Yes Hx Family Cancer: Yes (Bone CA) Review of Systems: GI: as per ALUTII[facility] GENERAL: denies fever, has some chills EYES: denies yellow discoloration ENT: denies pain with swallowing or difficulty swallowing CARDIO: denies chest pain, palpitations RESP: Shortness of breath with exertion : denies change in color of urine NEURO: weakness HEME: see hpi MS: denies joint pain, joint swelling or back pain. DERM: denies rash or itching PSYCH: Denies history of anxiety or depression - Constitutional Vitals: Temp Pulse Resp BP Pulse Ox 97.9 F 80 17 108/42 94 09/10/18 07:15 09/10/18 07:15 09/10/18 07:52 09/10/18 07:15 09/10/18 07:52 Exam: CONSTITUTIONAL:alert, no acute distress.HEAD:normocephalic.EYES:no jaundice.NECK:no obvious swelling.HEART:regular rate and rhythm, no murmurs.LUNGS:bilateral poor air entry.ABDOMEN:non distended, soft, non tender, no masses palpable, no organomegaly, obese.RECTAL EXAM:Deferred.EXTREMITIES:no clubbing, cyanosis, 1+ BLE edema, AV fistula left upper arm. Large amount of bruising noted to right neck, chest and upper arm and right groin/hip area. SKIN:pallor noted, no stigmata of chronic liver disease.NEUROLOGIC:no obvious focal defect. Results - Labs CBC & Chem 7: 09/10/18 04:59 09/10/18 04:59 Labs: Last Result 09/10/18 04:59 Calcium 7.5 L Entire Visit 09/10/18 04:59 Hgb 7.6 L Hct 22.6 L - ABG ABG results: PT/INR, D-dimer PT 12.6 Seconds (9.4-12.1) H 09/03/18 07:49 - Impressions Impressions Abdomen/Pelvis CT 09/08/18 08:36 IMPRESSION: 1. Postprocedural changes within the right groin and medial right thigh with subcutaneous soft tissue stranding and skin thickening with a more focal 3.5 x 1.3 cm hematoma. 2. Similar-appearing stranding and skin thickening within the right lower quadrant in the right anterior pelvis similar in appearance to prior exam surrounding the hernia sac. Recommend correlation with any signs of infection or cellulitis. 3. No retroperitoneal hematoma. 4. Extensive vascular calcifications. Stable 1.0 cm splenic artery aneurysm. D/ / 09/08/2018 09:43:26 Tricia Thacker MD / Crystal bright Interpreting Provider: Tricia Thacker MD Consult Discharge Plan - Plan Referrals: Cecy Valdez MD [Primary Care Provider] - 09/14/18 11:45 am (Your appointment for September 11 @ 1145 has been cancelled) - Attending Attestation deena <Ana María Castano - Last Filed: 09/10/18 17:37> Date of Encounter: 09/10/18 Time of Encounter: 15:00 - Time Spent With Patient Total time spent is greater than 50% in coordination of care (as documented) at patient's floor/unit and/or counseling patient: GI History of Present Illness - Data of Consult Requesting Physician: Morgan Tran - Consult Narrative History of present illness: Ms. Richey is a 72 year old female - Constitutional Vitals: Temp Pulse Resp BP Pulse Ox 98.0 F 109 18 96/57 95 09/10/18 16:36 09/10/18 16:36 09/10/18 16:36 09/10/18 13:00 09/10/18 16:36 Results - Labs CBC & Chem 7: 09/10/18 14:41 09/10/18 04:59 Labs: Entire Visit 09/10/18 14:41 Hgb 7.2 L Hct 21.8 L - ABG ABG results: PT/INR, D-dimer PT 12.6 Seconds (9.4-12.1) H 09/03/18 07:49 - Attending Attestation Patient seen denies any abdominal pain. On examination sitting in the chair not in acute distress. Abd is large but soft. Assessment: Patient 72-year-old female with multiple medical problem now with the status post catheter for non- ST OK and now having black stool with drop in her hemoglobin. Does has large groin hematoma. Recommendation: Patient will have EGD colonoscopy done to rule out GI causes for her anemia/black stool
[2018-09-10] MEDS ORDERED: *HR* HYDROcodone/Acet 5/325 mg TABLET PO ONE (15:04)
[2018-09-10] MEDS ORDERED: Ondansetron 4 MG/2 ML VIAL IVP PRN (15:05)
[2018-09-10 15:25] LABS: Hematocrit 21.8 % (35.3-44.9); Hemoglobin 7.2 g/dL (11.5-15.4); Mean Corpuscular Hemoglobin 30.6 pg (28.0-33.3); Mean Corpuscular Volume 92.8 fL (83.0-100.0); Mean Platelet Volume 11.2 fL (9.4-12.4); Platelet Count 148 K/mcL (140-400); Red Blood Count 2.35 M/mcL (3.82-4.97); Red Cell Distribution Width 16.5 % (11.5-14.5)
--- NOTE | 2018-09-10 16:00 | Nephrology Progress Note ---
Date of Encounter: 09/10/18 Time of Encounter: 10:00 - Assessment and Plan (1) End stage renal disease Current Visit: Yes Status: Chronic She has temporarily been switched to Friday//Friday dialysis. Her last treatment was on Friday, and I have ordered more dialysis today () She has an ongoing anemia, concerning for both GI bleed and in her right upper extremities. She continues to be very complex, and has required a high degree of evaluation and management as well as medical decision making. I used her labs, vital signs, progress notes, exam, imaging to composer dialysis orders for today. Transfusion parameters as per primary. My colleague Dr. Victor will be on-serve tomorrow. Thank you (2) Dyspnea Current Visit: Yes Status: Acute As per primary. HD changed to TTS d/t her transfusion/volume of infusions. She does not make much if any UOP anymore. Qualifiers: Dyspnea type: dyspnea on exertion Qualified Code(s): R06.09 - Other forms of dyspnea (3) Anemia Current Visit: No Status: Chronic Multifactorial and Acute on chronic: Goal Hgb is 10-11 in ESRD patients. Recommend ANAMIKA to assist, which she typically requires as a baseline chronically. Transfusion paramters per primary team Suspect active GIB/blood loss anemia. Qualifiers: Anemia type: other cause Other causes of anemia: chronic disease, neoplastic Qualified Code(s): D63.0 - Anemia in neoplastic disease (4) Anuria Current Visit: Yes Status: Chronic See above Subjective Principal diagnosis: Pneumonia; elevated troponin Interval history: Pt was s/e while on HD. She did not affirm N/V/D or cramping while on HD. I updated the patient and her about the addition on for dialysis today cause of the need for blood products. Objective - Vital Signs Vital signs: Vital Signs Temp Pulse Resp BP Pulse Ox 09/10/18 12:10 92/86 09/10/18 11:55 96/46 09/10/18 11:40 108/43 09/10/18 11:25 94/40 09/10/18 11:10 96/50 09/10/18 10:55 96/46 09/10/18 10:40 114/49 09/10/18 10:25 96/49 09/10/18 10:10 108/44 09/10/18 09:55 100/57 09/10/18 09:40 97.9 F 18 111/50 09/10/18 07:52 17 94 09/10/18 07:15 97.9 F 80 16 108/42 100 09/10/18 04:18 97.7 F 78 17 104/68 100 09/09/18 23:40 98.2 F 71 16 98/56 96 09/09/18 21:35 98.2 F 75 16 90/37 95 09/09/18 21:28 98.0 F 79 18 90/63 95 09/09/18 20:34 16 97 09/09/18 20:13 97.7 F 86 19 111/50 94 09/09/18 17:55 92/52 09/09/18 16:11 98.1 F 77 17 121/81 92 Intake and Output 09/09/18 09/10/18 09/10/18 23:59 07:59 15:59 Intake Total 670 / 1380 840 / 840 Output Total 0 / 0 Balance 670 / 1380 0 / 840 840 / 840 Intake: Oral 320 / 680 240 / 240 Blood Product 350 / 700 Rbcs Leuko Poor As-1 Unit 350 / 350 [id number] Intake, Rinseback and Flushes 600 / 600 Output: Urine 0 / 0 Other: Meal Dinner Breakfast Percent of Meal Consumed 0% 100% Stool Size Moderate Stool Consistency loose Stool Color Black Blood Tinged Weight 113.8 kg Blood Glucose* 293 208 184 Hemodialysis Net Fluid Removed 378 (mL) Patient Weight 09/10/18 23:59 Weight 113.8 kg - General Appearance Exam: General appearance: Present: well-developed, well-nourished, obese, moderate distress, frail EENT: Present: ATNC, mucous membranes moist Additional Comments: Palor Neck: Present: supple Respiratory: Present: course breath sounds Cardiology: Present: no edema, regular rate, normal S1, normal S2 Dialysis Vascular Access: Arteriovenous Fistula (left upper arm) thrill: Yes bruit: Yes Gastrointestinal: Present: normoactive bowel sounds, no guarding, obese Integumentary: Present: warm and dry Neurologic: Present: no focal deficit, no asterixis Musculoskeletal: Present: no cyanosis, no clubbing Psychiatric: Present: mood/affect appropriate, cooperative - Lab 09/11/18 05:04 09/11/18 05:04 Most recent lab results 09/10/18 04:59 Calcium 7.5 L Consult Discharge Plan - Plan Referrals: Cecy Valdez MD [Primary Care Provider] - 09/21/18 11:45 am ()
[2018-09-10] MEDS: Lactobacillus 1 EACH CAP.SPRINK PO SCH (16:50)
[2018-09-10] MEDS ORDERED: SODIUM CHLORIDE/NAHCO3/KCL/PEG 4,000 ML SOLN.RECON PO ONE (17:00)
[2018-09-10] MEDS: Gabapentin 100 MG CAPSULE PO SCH (22:07)
[2018-09-10] MEDS: Aspirin Enteric Coated 81 MG Tablet PO SCH (22:07)
[2018-09-10] MEDS: *HR* Heparin 5,000 UNIT/ML VIAL SQ SCH (22:08)
--- NOTE | 2018-09-10 23:46 | Anesthesia Evaluation PreOp ---
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: Denies Any Significant HX Other Medical History: Renal (ESRD on HD), Thyroid (hypo), Other (anemia, GI bleed, hematoma following recent cath on 09/07/18, morbid obesity BMI 50) Anesthesia History: No Prior Anesthetic Complications, Past Anesthesia (gastric bypass, annette, AV fistula, tonsills) Alcohol Use: none Drug use: none Medications and Allergies Atorvastatin [Lipitor] 40 mg PO QPM 01/16/15 [History] Gabapentin [Neurontin] 100 - 300 mg PO HS PRN 08/13/16 [History] Lactobacillus Combination No.8 [Adult Probiotic] 1 cap PO QPM 08/13/16 [History] Multivitamin [Multivitamins] 1 tab PO DAILY 08/13/16 [History] Sodium Bicarbonate 650 mg PO TID 08/13/16 [History] Calcium Acetate [Phos-LO] 2,001 mg PO TIDWM 10/31/16 [History] Insulin Regular, Human [Novolin R] 0 unit SQ TIDAC PRN 10/31/16 [History] Oxygen 2 l NS HS 10/31/16 [History] Fluticasone Propionate Nasal [Flonase] 2 spr NS BID PRN 07/01/17 [History] Fluticasone/Salmeterol [Advair 250-50 Diskus] 1 puff IH BID 07/01/17 [History] HYDROcodone/Acet 5/325 mg [Ardara 5-325 mg] 1 tab PO Q6H PRN 5 Days #20 tab 07/01/17 [Rx] Aspirin [Adult Aspirin Regimen] 81 mg PO QPM 09/02/18 [History] Calcium Acetate [Phos-LO] 1,334 mg PO DAILY 09/02/18 [History] Ergocalciferol (VITAMIN D2) [Vitamin D2] 50,000 unit PO SA 09/02/18 [History] Levothyroxine Sodium 50 mcg PO QAM 09/02/18 [History] Psyllium Husk [Fiber] 0.52 gm PO DAILY 09/02/18 [History] Silver Sulfadiazine [Ssd] 1 appl NS HS 09/02/18 [History] raNITIdine HCl [Zantac] 300 mg PO QPM 09/02/18 [History] Allergy/AdvReac Type Severity Reaction Status Date / Time levofloxacin Allergy Severe "HIVES, Verified 09/02/18 21:06 ITCHING, BURNING" - Meds/Allergy Pre-op Review Medications Reviewed: Yes Allergies Reviewed: Yes Beta Blockers on Current Med List: Yes Anesthesia Results - Labs 09/10/18 14:41 09/10/18 04:59 - Imaging EKG: report reviewed (Possible ectopic atrial rhythm RBBB and LAFB Lesly ctronically Signed On 09-03-2018 23:18:35 EDT by Darrell Michael) Additional studies: 09/07/18 Procedures Performed: LEFT HEART CATH Stent w/ PTCA Single Major Vessel (MAXWELL pRCA) Indications: Non-Stemi ACS > 24 hrs NSTE - ACS Impressions: There is severe one vessel coronary artery disease. The left ventricle is normal and has normal contractility EF 45% Patient had successful PTCA/Drug-Eluting Stent placement in the proximal RCA. Short stature and small caliber radial Morbid obesity BMI > 50 ECHO: Impressions: LVEF 50-55%. Mild segmental left ventricular systolic dysfunction. Mild concentric left ventricular hypertrophy. Moderate left ventricular diastolic dysfunction. Moderately dilated left atrium. Mildly dilated right ventricle with normal function. Mild mitral regurgitation. Mild tricuspid regurgitation. No pulmonary hypertension. Anesthesia Exam Vital Signs/O2 Sat, Most Current Temp Pulse Resp BP Pulse Ox 98.5 F 109 18 90/66 97 09/10/18 20:00 09/10/18 16:36 09/10/18 22:32 09/10/18 20:00 09/10/18 22:32 Weight: 113kg NPO (# of Hours): >8 - HEENT Pupil (Motor): Pupils equal, EOMI Mallampati: III Teeth: Missing, Poor dentition Oral Opening: Greater than 3 - AIRCRAFT DISPATCHER LOC: Oriented AIRCRAFT DISPATCHER Motor: Normal RUE, Normal LUE, Normal RLE, Normal LLE, Normal Face AIRCRAFT DISPATCHER Sensory: Normal: RUE, LUE, RLE, LLE, Face - Cardiac Rhythm: Regular - Pulmonary Breath Sounds: bilateral Clear Respiratory Effort: Symmetrical Anesthesia Assess/Plan ASA Score: 4 (NSTEMI with MAXWELL to RCA on 09/07/18, HTN, hyperlipidemia, DESTINY, ast hma, ESRD on HD, morbid obesity) Level of consciousness: Cooperative Anesthetic Plan: General, MAC Monitoring Plan: Standard Monitors Recovery Plan: PACU
[2018-09-11 05:15] LABS: Hemoglobin 7.3 g/dL (11.5-15.4); Mean Corpuscular HGB Conc 33.2 g/dL (31.6-35.5); Mean Corpuscular Hemoglobin 30.9 pg (28.0-33.3); Mean Corpuscular Volume 93.2 fL (83.0-100.0); Mean Platelet Volume 11.5 fL (9.4-12.4); Platelet Count 150 K/mcL (140-400); Red Blood Count 2.36 M/mcL (3.82-4.97); Red Cell Distribution Width 16.5 % (11.5-14.5)
[2018-09-11 05:28] LABS: Calcium 7.1 mg/dL (8.6-10.3); Magnesium 1.9 mg/dL (1.6-2.6); Potassium 4.5 mEq/L (3.5-5.1)
[2018-09-11] MEDS: Levothyroxine 25 MCG TABLET PO SCH (06:25)
[2018-09-11] MEDS: *HR* Heparin 5,000 UNIT/ML VIAL SQ SCH ×3 (06:25→14:14)
[2018-09-11] MEDS: *HR* HYDROcodone/Acet 5/325 mg TABLET PO PRN ×4 (06:27→23:07)
[2018-09-11] MEDS: Insulin LISPRO 300 UNITS/3 ML VIAL SQ SCH ×4 (07:26→21:04)
[2018-09-11] MEDS: Budesonide/Formoterol 80/4.5 MDI IH SCH ×2 (07:54→19:50)
--- NOTE | 2018-09-11 12:02 | Internal Med Progress Note ---
Hospitalist Progress Note - Encounter Date of Encounter: 09/11/18 Time of Encounter: 11:59 - Subjective Interval History: Pt had lucid dream last night where she thought she was at home and then needed to pee, so as she woke up she unthinkingly tried to get out of what she thought was her bed and then ended up slowly sliding down to the ground when she realized it was a hospital bed. Was incontinent of urine at this time. No trauma from gentle fall. Tolerated bowel prep OK, and is scheduled for EGD/colon today. RUE began with pain yesterday and upon reassessment yesterday evening she had considerable/extensive bruising RUE. She thinks her transfusions might have infiltrated and it does appear that way. - Exam Vitals: Temp Pulse Resp BP Pulse Ox 97.7 F 82 17 101/37 100 09/11/18 11:08 09/11/18 11:08 09/11/18 11:08 09/11/18 11:08 09/11/18 11:08 Exam: General: NAD, good eye contact, less sallow and more lively looking today, morbidly obese, pleasant Thoracic: good air movement bilaterally, stable faint bibasilar rhonchi Cardio: Normal S1 and S2, regular rate and rhythm, no murmurs Abdomen: Soft, nontender, morbidly obese Extremities: Warm, well perfused. DP and radial pulses 2+ b/l. No edema. R groin w bruising. RUE from shoulder to elbow w circumferential bruising/swelling Skin: Intact. No rashes or ulcers. See bruising above Neuro: Awake, fully oriented. Speech fluent - Summary of Assessment and Plan Summary of Assessment and Plan: Delilah Richey is a 72 F w hx COPD, HFpEF, ESRD on HD, DM2, HTN, morbid obesity, who p/w SOB and CP, found to have hypoxia, leukocytosis, CXR w RML opacity, and elev ated troponin, concerning for HCAP causing COPD exacerbation as well as possible ischemia. Acute blood loss anemia: suspect multifactorial, initially thought 2/2 large hematoma at LHC insertion site, but this is stable in size with hemostasis achieved now for several days. Has required in total 5 units transfused, however yesterday and today it is obvious that some of the total transfusion volume infiltrated into her RUE, at least 1u worth and possibly more given degree of bruising and swelling. Additionally, some looser stools that are dark/tarry in appearance, and pt did just start DAPT earlier this week. - maintain T&C - repeat Hb's q12h stable now - Cardio and VascSurg consulted, appreciate evaluation; no need for surgical intervention at this time for R groin hematoma - GI consulted, planning EGD/colonoscopy today R groin hematoma: at site of [facility], CT a/p 09/08 showed large local hematoma but no RP hematoma, VascSurg evaluted w arterial doppler and no pseudoaneurysm or need for intervention CAD s/p NSTEMI: s/p LHC w stent x1 to pRCA on 09/07, c/b groin hematoma. CT a/p 09/08 showed large local hematoma but no RP hematoma, also extensive vascular calcifications suggestive of PAD. - ASA 81, Lipitor 40 - new metoprolol 12.5 bid - Cardio following Leukocytosis: suspect reactive 2/2 hypotension and transfusions, no fever or other infectious s/sx, improving expectantly, will monitor HCAP: completed course of rocephin/azithro while inpatient COPD w chronic hypoxic respiratory failure: acute exacerbation resolved, continue home inhalers, O2, and nebs prn ESRD on HD MWF: Neph following HFpEF: volume per HD DM2: c/b renal disease and neuropathy, continue basal and SSI HTN: home meds Hypothyroidism: home synthroid Morbid Obesity: BMI 50 PPx: sqh FEN: renal ADA, no MIVF Lines: PIV Consults: Cardio, Neph Code: Full Dispo: patient requires inpatient eval and management at this time for ongoing blood loss, anticipate 2-3 more days, will be homegoing Internal Medicine: Result - Labs CBC & Chem 7: 09/11/18 05:04 09/11/18 05:04 Labs: Short CBC 09/10/18 09/11/18 Range/Units 14:41 05:04 WBC 16.8 H 16.9 H (4.3-11.1) K/mcL Hgb 7.2 L 7.3 L (11.5-15.4) g/dL Hct 21.8 L 22.0 L (35.3-44.9) % Plt Count 148 150 (140-400) K/mcL BMP 09/11/18 05:04 Sodium 137 Potassium 4.5 Chloride 100 Carbon Dioxide 26 BUN 56 H Creatinine 4.11 H Glucose 199 H Calcium 7.1 L - ABG Interpretation ABG results: PT/INR, D-dimer PT 12.6 Seconds (9.4-12.1) H 09/03/18 07:49 Consult Discharge Plan - Plan Referrals: Cecy Valdez MD [Primary Care Provider] - 09/21/18 11:45 am ()
[2018-09-11] MEDS ORDERED: Propofol 500 MG/50 ML INFUS..BTL ONE (12:10)
[2018-09-11] MEDS ORDERED: *HR* Succinylcholine 200 MG/10 ML VIAL IVP ONE (12:25)
[2018-09-11] MEDS: Pantoprazole 40 MG VIAL IVP SCH (14:50)
[2018-09-11] MEDS: Lactobacillus 1 EACH CAP.SPRINK PO SCH (16:50)
[2018-09-11] MEDS: Aspirin Enteric Coated 81 MG Tablet PO SCH (21:03)
[2018-09-11] MEDS: Gabapentin 100 MG CAPSULE PO SCH (21:04)
--- NOTE | 2018-09-11 22:20 | Nephrology Progress Note ---
Date of Encounter: 09/11/18 Time of Encounter: 15:00 - Assessment and Plan (1) End stage renal disease Current Visit: Yes Status: Chronic s/p HD yesterday, none planned today Lytes stable Next Hd planned tomorrow Continue renal diet (2) Dyspnea Current Visit: Yes Status: Acute stable, mostly resolved Continue strict fluid restriction Qualifiers: Dyspnea type: dyspnea on exertion Qualified Code(s): R06.09 - Other forms of dyspnea (3) Anemia Current Visit: No Status: Chronic Hgb noted at 7.3, s/p GI workup Transfusion paramters per primary team Qualifiers: Anemia type: other cause Other causes of anemia: chronic disease, neoplastic Qualified Code(s): D63.0 - Anemia in neoplastic disease Subjective Principal diagnosis: Pneumonia; elevated troponin Interval history: Intreim events noted, pt seen and examined sitting up in chair with no new complaints. at chairside Objective - Vital Signs Vital signs: Vital Signs Temp Pulse Resp BP Pulse Ox 09/11/18 19:55 89/63 09/11/18 19:50 22 100 09/11/18 19:27 98.0 F 83 16 80/36 100 09/11/18 19:00 91 09/11/18 15:00 97.9 F 81 20 107/57 100 09/11/18 14:15 97.7 F 96 18 104/54 96 09/11/18 14:06 75 16 110/38 100 09/11/18 13:14 98.2 F 103 16 113/47 100 09/11/18 11:08 97.7 F 82 17 101/37 100 09/11/18 07:55 18 100 09/11/18 07:47 87 09/11/18 07:09 97.6 F 83 16 109/34 100 09/11/18 03:47 97.8 F 71 20 89/60 100 09/11/18 03:35 92 09/11/18 03:25 97.5 F L 94 16 94/43 98 09/10/18 23:30 98.3 F 85 19 110/97 90 09/10/18 22:32 18 97 Intake and Output 09/11/18 09/11/18 09/11/18 07:59 15:59 23:59 Intake Total 0 / 240 240 / 240 Output Total 0 / 0 Balance 0 / 240 0 / 240 240 / 240 Intake: Oral 0 / 240 240 / 240 Output: Urine 0 / 0 Other: Meal NPO Dinner Percent of Meal Consumed 100% Stool Size Large Stool Consistency liquid Stool Color Black # Bowel Movements 1 Weight 115 kg Blood Glucose* 215 171 333 Patient Weight 09/11/18 23:59 Weight 115 kg - Lab 09/11/18 05:04 09/11/18 05:04 Consult Discharge Plan - Plan Referrals: Cecy Valdez MD [Primary Care Provider] - 09/21/18 11:45 am ()
[2018-09-12] MEDS: *HR* HYDROcodone/Acet 5/325 mg TABLET PO PRN ×2 (05:21→23:00)
[2018-09-12] MEDS: Levothyroxine 25 MCG TABLET PO SCH (05:23)
[2018-09-12] MEDS ORDERED: 0.9 % Sodium Chloride 1,000 ML ONE (07:24)
[2018-09-12] MEDS: Pantoprazole 40 MG VIAL IVP SCH ×2 (07:40→20:07)
[2018-09-12] MEDS: Insulin LISPRO 300 UNITS/3 ML VIAL SQ SCH ×4 (07:44→22:03)
[2018-09-12 08:30] LABS: Calcium 6.7 mg/dL (8.6-10.3); Potassium 4.3 mEq/L (3.5-5.1)
[2018-09-12 08:55] LABS: Mean Platelet Volume 11.5 fL (9.4-12.4); Platelet Count 179 K/mcL (140-400)
[2018-09-12 08:57] LABS: Hematocrit 17.7 % (35.3-44.9); Mean Corpuscular HGB Conc 30.5 g/dL (31.6-35.5); Mean Corpuscular Hemoglobin 30.5 pg (28.0-33.3); Red Blood Count 1.77 M/mcL (3.82-4.97); Red Cell Distribution Width 16.3 % (11.5-14.5)
[2018-09-12 09:10] LABS: Hemoglobin 5.4 g/dL (11.5-15.4)
[2018-09-12] MEDS: Budesonide/Formoterol 80/4.5 MDI IH SCH ×2 (09:27→19:54)
[2018-09-12] MEDS ORDERED: Albumin 25% 12.5gm/50mL 25.0 GM/100 ML IV.SOLN ONE (10:15)
[2018-09-12] MEDS ORDERED: 0.9 % Sodium Chloride 250 ML IVC PRN (10:41)
[2018-09-12] MEDS ORDERED: Albumin 25% 25gram/100mL 25 GM/100 ML IV.SOLN IVPB PRN (10:41)
[2018-09-12] MEDS ORDERED: 0.9 % Sodium Chloride 1,000 ML PRIME SCH (10:45)
--- NOTE | 2018-09-12 12:09 | Nephrology Progress Note ---
Date of Encounter: 09/12/18 Time of Encounter: 12:00 - Assessment and Plan (1) Dyspnea Current Visit: Yes Status: Acute Qualifiers: Dyspnea type: dyspnea on exertion Qualified Code(s): R06.09 - Other forms of dyspnea (2) Anemia Current Visit: No Status: Chronic Qualifiers: Anemia type: other cause Other causes of anemia: chronic disease, neoplastic Qualified Code(s): D63.0 - Anemia in neoplastic disease (3) End stage renal disease Current Visit: Yes Status: Chronic (4) Anuria Current Visit: Yes Status: Chronic Subjective Principal diagnosis: Pneumonia; elevated troponin Interval history: Intreim events noted, pt seen and examined sitting up in chair with no new complaints. at chairside Objective - Vital Signs Vital signs: Vital Signs Temp Pulse Resp BP Pulse Ox 09/12/18 11:48 97.2 F L 66 18 09/12/18 11:33 97.4 F L 78 18 96/46 09/12/18 11:15 97.5 F L 64 16 83/40 09/12/18 11:00 97.5 F L 65 16 83/41 09/12/18 10:45 97.3 F L 71 16 85/54 09/12/18 09:27 16 100 09/12/18 07:07 97.8 F 85 18 110/60 100 09/12/18 07:00 83 09/12/18 04:04 98.5 F 79 16 114/62 100 09/12/18 01:44 104/58 09/12/18 01:06 98.3 F 82 16 67/32 100 09/11/18 19:55 89/63 09/11/18 19:50 22 100 09/11/18 19:27 98.0 F 83 16 80/36 100 09/11/18 19:00 91 09/11/18 15:00 97.9 F 81 20 107/57 100 09/11/18 14:15 97.7 F 96 18 104/54 96 09/11/18 14:06 75 16 110/38 100 09/11/18 13:14 98.2 F 103 16 113/47 100 Intake and Output 09/11/18 09/12/18 09/12/18 23:59 07:59 15:59 Intake Total 240 / 240 820 / 820 Balance 240 / 240 820 / 820 Intake: Oral 240 / 240 120 / 120 Blood Product 700 / 700 Rbcs Leuko Poor As-1 Unit 350 / 350 [id number] Rbcs Leuko Poor As-1 Unit 350 / 350 [id number] Other: Meal Dinner Breakfast Percent of Meal Consumed 100% 50% Stool Size Large Moderate Stool Consistency liquid Stool Color Black Black # Bowel Movements 1 1 Blood Glucose* 333 184 - Lab 09/12/18 08:40 09/12/18 07:45 Most recent lab results 09/12/18 07:45 Calcium 6.7 L Consult Discharge Plan - Plan Referrals: Cecy Valdez MD [Primary Care Provider] - 09/21/18 11:45 am ()
--- NOTE | 2018-09-12 14:40 | Internal Med Progress Note ---
Hospitalist Progress Note - Encounter Date of Encounter: 09/12/18 Time of Encounter: 14:36 - Subjective Interval History: Pt feels more tired today, kind of wiped out. Tolerated her EGD yesterday with discovery of ulcer. No SOB or CP. - Exam Vitals: Temp Pulse Resp BP Pulse Ox 97.3 F L 77 16 102/50 100 09/12/18 12:03 09/12/18 12:03 09/12/18 12:03 09/12/18 12:03 09/12/18 09:27 Exam: General: NAD, good eye contact, again kind of sallow appearing, morbidly obese, pleasant Thoracic: good air movement bilaterally, no wheezing or crackles Cardio: Normal S1 and S2, regular rate and rhythm, no murmurs Abdomen: Soft, nontender, morbidly obese Extremities: Warm, well perfused. DP and radial pulses 2+ b/l. No edema. R groin w bruising. RUE from shoulder to elbow w circumferential bruising/swelling Skin: Intact. No rashes. See bruising above. Does have blister/wound on R posterior thigh Neuro: Awake, fully oriented. Speech fluent - Summary of Assessment and Plan Summary of Assessment and Plan: Delilah Richey is a 72 F w hx COPD, HFpEF, ESRD on HD, DM2, HTN, morbid obesity, who p/w SOB and CP, found to have hypoxia, leukocytosis, CXR w RML opacity, and elevated troponin, concerning for HCAP causing COPD exacerbation as well as possible ischemia. Acute blood loss anemia 2/2 UGIB: suspect multifactorial, initially thought 2/2 large hematoma at LHC insertion site, but this is stable in size with hemostasis achieved now for several days. Has required in total 5 units transfused, however yesterday and today it is obvious that some of the total transfusion volume infiltrated into her RUE, at least 1u worth and possibly more given degree of bruising and swelling. Additionally, some looser stools that are dark/tarry in appearance, and pt did just start DAPT earlier this week, therefore pt underwent EGD which showed large 4cm ulcer. Today, Hb is 5.3 - maintain T&C - transfuse 2u prbc - PPI iv bid R groin hematoma: at site of LHC, CT a/p 09/08 showed large local hematoma but no RP hematoma, VascSurg evaluted w arterial doppler and no pseudoaneurysm or need for intervention CAD s/p NSTEMI: s/p LHC w stent x1 to pRCA on 09/07, c/b groin hematoma. CT a/p 09/08 showed large local hematoma but no RP hematoma, also extensive vascular calcifications suggestive of PAD. - ASA 81, Lipitor 40 - new metoprolol 12.5 bid - Cardio following Leukocytosis: suspect reactive 2/2 hypotension and transfusions, no fever or other infectious s/sx, improving expectantly, will monitor HCAP: completed course of rocephin/azithro while inpatient COPD w chronic hypoxic respiratory failure: acute exacerbation resolved, con tinue home inhalers, O2, and nebs prn ESRD on HD MWF: Neph following HFpEF: volume per HD DM2: c/b renal disease and neuropathy, continue basal and SSI HTN: home meds Hypothyroidism: home synthroid Morbid Obesity: BMI 50 PPx: sqh FEN: renal ADA, no MIVF Lines: PIV Consults: Cardio, Neph, GI Code: Full Dispo: patient requires inpatient eval and management at this time for ongoing blood loss, anticipate 2-3 more days, will be homegoing Internal Medicine: Result - Labs CBC & Chem 7: 09/12/18 08:40 09/12/18 07:45 Labs: Short CBC 09/12/18 Range/Units 08:40 WBC 14.9 H (4.3-11.1) K/mcL Hgb 5.4 L* D (11.5-15.4) g/dL Hct 17.7 L (35.3-44.9) % Plt Count 179 (140-400) K/mcL BMP 09/12/18 07:45 Sodium 136 Potassium 4.3 Chloride 98 Carbon Dioxide 27 BUN 67 H Creatinine 5.44 H Glucose 185 H Calcium 6.7 L - ABG Interpretation ABG results: PT/INR, D-dimer PT 12.6 Seconds (9.4-12.1) H 09/03/18 07:49 Consult Discharge Plan - Plan Referrals: Cecy Valdez MD [Primary Care Provider] - 09/21/18 11:45 am ()
[2018-09-12 16:17] LABS: Hematocrit 21.8 % (35.3-44.9); Mean Corpuscular HGB Conc 32.6 g/dL (31.6-35.5); Mean Corpuscular Hemoglobin 30.9 pg (28.0-33.3); Mean Corpuscular Volume 94.8 fL (83.0-100.0); Mean Platelet Volume 11.6 fL (9.4-12.4); Platelet Count 135 K/mcL (140-400); Red Cell Distribution Width 14.9 % (11.5-14.5)
[2018-09-12 16:30] LABS: Hemoglobin 7.1 g/dL (11.5-15.4)
[2018-09-12] MEDS: Lactobacillus 1 EACH CAP.SPRINK PO SCH (17:42)
[2018-09-12] MEDS: Aspirin Enteric Coated 81 MG Tablet PO SCH (20:07)
[2018-09-12] MEDS: Gabapentin 100 MG CAPSULE PO SCH (20:07)
[2018-09-13 04:07] LABS: Mean Corpuscular Hemoglobin 30.6 pg (28.0-33.3)
[2018-09-13 04:08] LABS: Hematocrit 17.4 % (35.3-44.9); Mean Corpuscular HGB Conc 31.6 g/dL (31.6-35.5); Mean Corpuscular Volume 96.7 fL (83.0-100.0); Mean Platelet Volume 11.9 fL (9.4-12.4); Platelet Count 147 K/mcL (140-400); Red Cell Distribution Width 15.6 % (11.5-14.5)
[2018-09-13 04:11] LABS: Hemoglobin 5.5 g/dL (11.5-15.4)
[2018-09-13 04:26] LABS: Calcium 6.8 mg/dL (8.6-10.3); Potassium 4.3 mEq/L (3.5-5.1)
[2018-09-13] MEDS: Levothyroxine 25 MCG TABLET PO SCH (06:13)
[2018-09-13] MEDS: Budesonide/Formoterol 80/4.5 MDI IH SCH ×2 (07:27→20:16)
[2018-09-13] MEDS: Pantoprazole 40 MG VIAL IVP SCH ×2 (08:01→19:43)
[2018-09-13] MEDS: Insulin LISPRO 300 UNITS/3 ML VIAL SQ SCH ×4 (08:15→21:35)
[2018-09-13] MEDS ORDERED: 0.9 % Sodium Chloride 250 ML ONE (09:38)
[2018-09-13] MEDS: Acetaminophen 325 MG TABLET PO PRN (10:24)
[2018-09-13] MEDS: *HR* HYDROcodone/Acet 5/325 mg TABLET PO PRN ×2 (11:54→23:09)
--- NOTE | 2018-09-13 12:02 | Internal Med Progress Note ---
Hospitalist Progress Note - Encounter Date of Encounter: 09/13/18 Time of Encounter: 11:59 - Subjective Interval History: As yesterday, this morning feels crummy but on afternoon recheck feels better after blood transfusion. Still having dark tarry stools. No N/V, no SOB. - Exam Vitals: Temp Pulse Resp BP Pulse Ox 98.2 F 78 18 100/70 100 09/13/18 10:57 09/13/18 10:57 09/13/18 10:57 09/13/18 10:31 09/13/18 10:57 Exam: General: NAD, good eye contact, continued sallow/pale appearance, morbidly obese, pleasant Thoracic: good air movement bilaterally, no wheezing or crackles Cardio: Normal S1 and S2, regular rate and rhythm, no murmurs Abdomen: Soft, nontender, morbidly obese Extremities: Warm, well perfused. DP and radial pulses 2+ b/l. No edema. R groin w bruising. RUE from shoulder to elbow w circumferential bruising/swelling Skin: skin breakdown at site of LHC between skin folds Neuro: Awake, fully oriented. Speech fluent - Summary of Assessment and Plan Summary of Assessment and Plan: Delilah Richey is a 72 F w hx COPD, HFpEF, ESRD on HD, DM2, HTN, morbid obesity, who p/w SOB and CP, found to have hypoxia, leukocytosis, CXR w RML opacity, and elevated troponin, concerning for HCAP causing COPD exacerbation as well as possible ischemia. Acute blood loss anemia 2/2 UGIB: initially thought 2/2 large hematoma at LHC insertion site, but this is stable. Additionally, some looser stools that are dark/tarry in appearance, and pt did just start DAPT last week following short course of prednisone, therefore pt underwent EGD which showed large 4cm ulcer, and again today Hb is 5s, has required in total 7 units transfused. - maintain T&C - transfuse additional 2u prbc - PPI iv bid Deconditioning: PT/OT consults R groin hematoma: at site of LHC, CT a/p 09/08 showed large local hematoma but no RP hematoma, VascSurg evaluted w arterial doppler and no pseudoaneurysm or need for intervention CAD s/p NSTEMI: s/p LHC w stent x1 to pRCA on 09/07, c/b groin hematoma. CT a/p 09/08 showed large local hematoma but no RP hematoma, also extensive vascular calcifications suggestive of PAD. - ASA 81, Plavix, Lipitor 40 - new metoprolol 12.5 bid - Cardio following Leukocytosis: resolved HCAP: completed course of rocephin/azithro while inpatient COPD w chronic hypoxic respiratory failure: acute exacerbation resolved, continue home inhalers, O2, and nebs prn ESRD on HD MWF: Neph following HFpEF: volume per HD DM2: c/b renal disease and neuropathy, continue basal and SSI HTN: home meds Hypothyroidism: home synthroid Morbid Obesity: BMI 50 PPx: sqh FEN: renal ADA, no MIVF Lines: PIV Consults: Cardio, Neph, GI Code: Full Dispo: patient requires inpatient eval and management at this time for ongoing b lood loss, anticipate 2-3 more days, will be homegoing Internal Medicine: Result - Labs CBC & Chem 7: 09/13/18 03:17 09/13/18 03:17 Labs: Short CBC 09/12/18 09/13/18 Range/Units 16:00 03:17 WBC 12.4 H 12.1 H (4.3-11.1) K/mcL Hgb 7.1 L D 5.5 L* D (11.5-15.4) g/dL Hct 21.8 L 17.4 L (35.3-44.9) % Plt Count 135 L 147 (140-400) K/mcL BMP 09/13/18 03:17 Sodium 138 Potassium 4.3 Chloride 100 Carbon Dioxide 27 BUN 68 H Creatinine 5.89 H Glucose 155 H Calcium 6.8 L - ABG Interpretation ABG results: PT/INR, D-dimer PT 12.6 Seconds (9.4-12.1) H 09/03/18 07:49 - Impressions Impressions Abdomen/Pelvis CT 09/13/18 05:56 IMPRESSION: 1. Unchanged incompletely imaged small to moderate hematoma within the right groin. 2. Worsening trace right pleural effusion. D/ / Sundeep Luis MD / Sundeep Luis MD Interpreting Provider: Sundeep Luis MD Consult Discharge Plan - Plan Referrals: Cecy Valdez MD [Primary Care Provider] - 09/21/18 11:45 am ()
[2018-09-13 14:11] LABS: Hematocrit 24.2 % (35.3-44.9); Mean Corpuscular HGB Conc 33.1 g/dL (31.6-35.5); Mean Corpuscular Hemoglobin 31.1 pg (28.0-33.3); Mean Corpuscular Volume 94.2 fL (83.0-100.0); Mean Platelet Volume 11.5 fL (9.4-12.4); Platelet Count 146 K/mcL (140-400); Red Blood Count 2.57 M/mcL (3.82-4.97); Red Cell Distribution Width 15.2 % (11.5-14.5)
[2018-09-13] MEDS ORDERED: Neosporin OINT 1 APPL PACKET TP ONE (14:41)
[2018-09-13] MEDS: Lactobacillus 1 EACH CAP.SPRINK PO SCH (17:30)
--- NOTE | 2018-09-13 19:40 | Nephrology Progress Note ---
Date of Encounter: 09/13/18 - Assessment and Plan (1) Dyspnea Current Visit: Yes Status: Acute Qualifiers: Dyspnea type: dyspnea on exertion Qualified Code(s): R06.09 - Other forms of dyspnea (2) Anemia Current Visit: No Status: Chronic Qualifiers: Anemia type: other cause Other causes of anemia: chronic disease, neoplastic Qualified Code(s): D63.0 - Anemia in neoplastic disease (3) End stage renal disease Current Visit: Yes Status: Chronic (4) Anuria Current Visit: Yes Status: Chronic Subjective Principal diagnosis: Pneumonia; elevated troponin Interval history: Intreim events noted, pt seen and examined sitting up in chair with no new complaints. at chairside Objective - Vital Signs Vital signs: Vital Signs Temp Pulse Resp BP Pulse Ox 09/13/18 16:05 98.3 F 73 18 98/62 98 09/13/18 13:07 98.0 F 68 18 99/63 09/13/18 12:00 106/60 09/13/18 10:57 98.2 F 78 18 100 09/13/18 10:31 98.6 F 82 20 100/70 09/13/18 10:16 98.6 F 78 17 106/68 09/13/18 08:45 98.0 F 78 18 110/70 98 09/13/18 07:55 98.0 F 78 18 110/70 100 09/13/18 07:27 18 100 09/13/18 07:00 82 09/13/18 05:50 97.5 F L 83 16 112/70 98 09/13/18 05:35 97.8 F 73 16 95/60 09/13/18 03:47 98.4 F 77 17 105/72 99 09/12/18 23:06 98.4 F 89 18 108/70 100 09/12/18 20:27 98.2 F 91 18 98/62 99 09/12/18 19:54 16 97 Intake and Output 09/13/18 09/13/18 09/13/18 07:59 15:59 23:59 Intake Total 0 / 1814 1574 / 1814 240 / 1814 Output Total 0 / 0 Balance 0 / 1814 1574 / 1814 240 / 1814 Intake: Oral 0 / 1080 840 / 1080 240 / 1080 Blood Product 0 / 734 734 / 734 Rbcs Leuko Poor As-1 Unit 389 / 389 [id number] Rbcs Leuko Poor As-1 Unit 0 / 345 345 / 345 [id number] Output: Urine 0 / 0 Other: Meal Lunch Dinner Percent of Meal Consumed 15% 95% Stool Size Large Small Stool Consistency loose loose liquid Stool Color Dark Red Blood Dark Red Blood # Bowel Movements 1 Weight 114.8 kg Blood Glucose* 183 202 185 Patient Weight 09/13/18 23:59 Weight 114.8 kg - Lab 09/13/18 13:56 09/13/18 03:17 Consult Discharge Plan - Plan Referrals: Cecy Valdez MD [Primary Care Provider] - 09/21/18 11:45 am ()
[2018-09-13] MEDS: Aspirin Enteric Coated 81 MG Tablet PO SCH (19:42)
[2018-09-13] MEDS: Gabapentin 100 MG CAPSULE PO SCH (19:43)
[2018-09-14 04:13] LABS: Hematocrit 20.7 % (35.3-44.9); Hemoglobin 6.7 g/dL (11.5-15.4); Mean Corpuscular HGB Conc 32.4 g/dL (31.6-35.5); Mean Corpuscular Hemoglobin 30.6 pg (28.0-33.3); Mean Corpuscular Volume 94.5 fL (83.0-100.0); Mean Platelet Volume 11.7 fL (9.4-12.4); Platelet Count 158 K/mcL (140-400); Red Blood Count 2.19 M/mcL (3.82-4.97); Red Cell Distribution Width 15.9 % (11.5-14.5)
[2018-09-14 04:32] LABS: Calcium 7.2 mg/dL (8.6-10.3)
[2018-09-14] MEDS: Budesonide/Formoterol 80/4.5 MDI IH SCH ×2 (07:31→20:38)
[2018-09-14] MEDS: Levothyroxine 25 MCG TABLET PO SCH (07:47)
[2018-09-14] MEDS ORDERED: 0.9 % Sodium Chloride 2,000 ML ONE (08:38)
[2018-09-14] MEDS: Insulin LISPRO 300 UNITS/3 ML VIAL SQ SCH ×4 (08:41→20:10)
[2018-09-14] MEDS: Pantoprazole 40 MG VIAL IVP SCH ×2 (08:58→20:03)
[2018-09-14] MEDS: *HR* HYDROcodone/Acet 5/325 mg TABLET PO PRN ×2 (09:03→18:25)
[2018-09-14] MEDS ORDERED: 0.9 % Sodium Chloride 250 ML IVC PRN (09:46)
[2018-09-14] MEDS ORDERED: 0.9 % Sodium Chloride 1,000 ML PRIME SCH (10:00)
--- NOTE | 2018-09-14 13:14 | Event Note ---
Date of Encounter: 09/14/18 Time of Encounter: 13:11 - Cardiology Event Note Patient was stented to her proximal dominant RCA on 09/07/18 with a drug eluding stent. Patient is on asa and plavix. GI bleed noted and underwent EGD with large gastric ulcer noted. Would recommend continuation of dual anti-platelet therapy. Ideally, per ACC guidelines, would continue dual anti-platelet therapy uninterrupted for at least one year. Discussed and reviewed with .
--- NOTE | 2018-09-14 15:10 | Internal Med Progress Note ---
Hospitalist Progress Note - Encounter Date of Encounter: 09/14/18 Time of Encounter: 15:07 - Subjective Interval History: Pt does not feel as crummy this AM as the last two days, but still not at her baseline. No N/V or abd pain, but still having some melena. She does feel weak and today expresses concern about safety at home although she still wants to go home. Says her skin on R arm and R groin have wounds now and would like wound RN to evaluate. No SOB or CP. - Exam Vitals: Temp Pulse Resp BP Pulse Ox 97.6 F 73 18 90/39 100 09/14/18 11:26 09/14/18 11:26 09/14/18 11:26 09/14/18 11:26 09/14/18 07:31 Exam: General: NAD, good eye contact, appears chronically ill, morbidly obese, pleasant Thoracic: good air movement bilaterally, no wheezing or crackles Cardio: Normal S1 and S2, regular rate and rhythm, no murmurs Abdomen: Soft, nontender, morbidly obese Extremities: Warm, well perfused. DP and radial pulses 2+ b/l. No edema. R groin w bruising, and LHC site is dressed. RUE from shoulder to elbow w circumferential bruising/swelling, with single area of skin tear above antecub fossa Skin: as above Neuro: Awake, fully oriented. Speech fluent - Summary of Assessment and Plan Summary of Assessment and Plan: Delilah Richey is a 72 F w hx COPD, HFpEF, ESRD on HD, DM2, HTN, morbid obesity, who p/w SOB and CP, found to have hypoxia, leukocytosis, CXR w RML opacity, and elevated troponin, concerning for HCAP causing COPD exacerbation as well as possible ischemia. Acute blood loss anemia 2/2 UGIB: initially thought 2/2 hematoma following LHC, but evaluation in this regard unremarkable. Due to development of melena while on DAPT and following short course prednisone, pt underwent EGD which showed large 4cm gastric ulcer. Over weekend, pt required several more units transfused. - maintain T&C - transfuse additional 2u prbc today - PPI iv bid - Discussed w GI, will make NPO and plan for repeat EGD in AM - consider adding carafate after EGD - Discussed w cardio, pt is RCA dominant and had RCA stent placed and thus should maintain DAPT Deconditioning: PT/OT consults Skin breakdown: wound RN consulted CAD s/p NSTEMI, PAD, HLD: s/p LHC w stent x1 to pRCA on 09/07. C/b groin hematoma for which CT showed large local hematoma but no RP bleed, VascSurg evaluted w arterial doppler and no pseudoaneurysm. - ASA 81, Plavix, Lipitor 40 - new metoprolol 12.5 bid - Cardio following COPD w chronic hypoxic respiratory failure: continue home inhalers, O2, and nebs prn ESRD on HD MWF: Neph following HFpEF: volume per HD DM2: c/b renal disease and neuropathy, continue basal and SSI HTN: home meds Hypothyroidism: home synthroid Morbid Obesity: BMI 50 PPx: SCDs FEN: NPO@MN for EGD then can have clears (renal ADA), no MIVF Lines: PIV Consults: Cardio, Neph, GI Code: Full Dispo: patient requires inpatient eval and management at this time for ongoing blood loss, anticipate 2-3 more days, evaluating if will need rehab Internal Medicine: Result - Labs CBC & Chem 7: 09/14/18 04:01 09/14/18 04:01 Labs: Short CBC 09/14/18 Range/Units 04:01 WBC 13.7 H (4.3-11.1) K/mcL Hgb 6.7 L (11.5-15.4) g/dL Hct 20.7 L (35.3-44.9) % Plt Count 158 (140-400) K/mcL BMP 09/14/18 04:01 Sodium 137 Potassium 5.0 Chloride 100 Carbon Dioxide 26 BUN 96 H Creatinine 6.80 H Glucose 142 H Calcium 7.2 L - ABG Interpretation ABG results: PT/INR, D-dimer PT 12.6 Seconds (9.4-12.1) H 09/03/18 07:49 Consult Discharge Plan - Plan Referrals: Kenrick Pardo, [employer] [Advanced Practice Nurse] - (per the office they will call t he patient at home with a follow up appointment) Cecy Valdez MD [Primary Care Provider] - 09/21/18 11:45 am ()
[2018-09-14] MEDS: Lactobacillus 1 EACH CAP.SPRINK PO SCH (17:11)
--- NOTE | 2018-09-14 18:08 | Nephrology Progress Note ---
Date of Encounter: 09/14/18 - Assessment and Plan (1) Dyspnea Current Visit: Yes Status: Acute Qualifiers: Dyspnea type: dyspnea on exertion Qualified Code(s): R06.09 - Other forms of dyspnea (2) Anemia Current Visit: No Status: Chronic Qualifiers: Anemia type: other cause Other causes of anemia: chronic disease, neoplastic Qualified Code(s): D63.0 - Anemia in neoplastic disease (3) End stage renal disease Current Visit: Yes Status: Chronic (4) Anuria Current Visit: Yes Status: Chronic Subjective Principal diagnosis: Pneumonia; elevated troponin Interval history: Intreim events noted, pt seen and examined sitting up in chair with no new complaints. at chairside Objective - Vital Signs Vital signs: Vital Signs Temp Pulse Resp BP Pulse Ox 09/14/18 16:44 98.1 F 98 18 110/71 09/14/18 13:31 97.8 F 18 100/64 09/14/18 13:10 98/47 09/14/18 12:55 87/42 09/14/18 12:40 93/49 09/14/18 12:25 98/45 09/14/18 12:10 99/39 09/14/18 12:08 97.7 F 78 16 99/39 09/14/18 11:55 91/39 09/14/18 11:53 97.5 F L 78 16 91/39 09/14/18 11:40 89/36 09/14/18 11:38 97.7 F 75 18 89/36 100 09/14/18 11:26 97.6 F 73 18 90/39 09/14/18 11:25 90/39 09/14/18 11:11 97.6 F 73 16 94/34 09/14/18 11:10 91/75 09/14/18 10:56 97.9 F 73 16 90/43 09/14/18 10:55 90/43 09/14/18 10:40 90/46 09/14/18 10:25 93/43 09/14/18 10:10 98 F 16 91/76 09/14/18 07:31 16 100 09/14/18 07:10 97.9 F 65 16 118/70 100 09/14/18 03:30 97.8 F 83 18 112/68 100 05/05/19 23:10 98 F 74 16 115/78 100 09/13/18 20:17 16 100 09/13/18 19:39 97.9 F 74 16 105/62 100 Intake and Output 09/14/18 09/14/18 09/14/18 07:59 15:59 23:59 Intake Total 1420 / 1540 120 / 1540 Output Total 2124 Balance -705 / -585 120 / -585 Intake: Oral 120 / 240 120 / 240 Blood Product 700 / 700 Rbcs Leuko Poor As-1 Unit 350 / 350 [id number] Rbcs Leuko Poor As-1 Unit 350 / 350 [id number] Intake, Rinseback and Flushes 600 / 600 Output: Total Dialysis (HD) Output 2124 Other: Meal Breakfast Dinner Percent of Meal Consumed 50% 50% Blood Glucose* 137 145 183 Hemodialysis Net Fluid Removed 825 (mL) - Lab 09/14/18 04:01 09/14/18 04:01 Consult Discharge Plan - Plan Referrals: Kenrick Parod [employer] WORK[employer] [Advanced Practice Nurse] - (per the office they will call the patient at home with a follow up appointment) Cecy Valdez MD [Primary Care Provider] - 09/21/18 11:45 am ()
[2018-09-14] MEDS: Nystatin POWDER 30 GM BOTTLE TP SCH (18:30)
[2018-09-14] MEDS: Aspirin Enteric Coated 81 MG Tablet PO SCH (20:02)
[2018-09-14] MEDS: Gabapentin 100 MG CAPSULE PO SCH (20:02)
[2018-09-14 21:01] LABS: Hematocrit 26.6 % (35.3-44.9)
[2018-09-14 21:05] LABS: Hemoglobin 8.9 g/dL (11.5-15.4)
[2018-09-15] MEDS ORDERED: Melatonin 3 MG TABLET PO PRN (02:36)
[2018-09-15] MEDS: *HR* HYDROcodone/Acet 5/325 mg TABLET PO PRN ×3 (04:43→20:07)
[2018-09-15] MEDS: Levothyroxine 25 MCG TABLET PO SCH (06:13)
[2018-09-15 07:43] LABS: Hematocrit 19.4 % (35.3-44.9); Mean Corpuscular Hemoglobin 30.1 pg (28.0-33.3); Mean Corpuscular Volume 94.2 fL (83.0-100.0); Platelet Count 175 K/mcL (140-400); Red Blood Count 2.06 M/mcL (3.82-4.97); Red Cell Distribution Width 17.3 % (11.5-14.5)
[2018-09-15 07:50] LABS: Hemoglobin 6.2 g/dL (11.5-15.4)
[2018-09-15] MEDS: Pantoprazole 40 MG VIAL IVP SCH ×2 (07:55→20:07)
[2018-09-15] MEDS: Nystatin POWDER 30 GM BOTTLE TP SCH ×2 (07:56→22:31)
[2018-09-15] MEDS: Budesonide/Formoterol 80/4.5 MDI IH SCH ×2 (08:01→20:28)
[2018-09-15] MEDS: Insulin LISPRO 300 UNITS/3 ML VIAL SQ SCH ×4 (08:05→20:07)
--- NOTE | 2018-09-15 08:08 | Internal Med Progress Note ---
Hospitalist Progress Note - Encounter Date of Encounter: 09/15/18 Time of Encounter: 08:07 - Subjective Interval History: Pt continues w dark tarry stools. Today feels abd pain as well as lightheaded/dizzy, and is for the first time in last 2 weeks concerned about how she is feeling. Denies SOB or CP, no F/C or N/V. - Exam Vitals: Temp Pulse Resp BP Pulse Ox 98.5 F 84 16 104/66 100 09/15/18 07:27 09/15/18 07:46 09/15/18 07:46 09/15/18 07:46 09/15/18 07:46 Exam: General: NAD, good eye contact, morbidly obese, pleasant, appears pale and sallow Thoracic: good air movement bilaterally, no wheezing or crackles Cardio: Normal S1 and S2, regular rate and rhythm Abdomen: Soft, morbidly obese, nontender Extremities: Warm, well perfused. DP and radial pulses slightly diminished today. No edema. R groin w bruising and R posterior entire thigh w dependent bruising, and LHC site is dressed. RUE from shoulder to elbow w circumferential bruising/swelling, with single area of skin tear above antecub fossa. Skin: as above Neuro: Awake, fully oriented. Speech fluent - Summary of Assessment and Plan Summary of Assessment and Plan: Delilah Richey is a 72 F w hx COPD, HFpEF, ESRD on HD, DM2, HTN, morbid obesity, who p/w SOB and CP, found to have hypoxia, leukocytosis, CXR w RML opacity, and elevated troponin, concerning for HCAP causing COPD exacerbation as well as possible ischemia. Acute blood loss anemia 2/2 GIB: initially thought 2/2 hematoma following LHC, but evaluation in this regard unremarkable. Due to melena while on DAPT and following short course prednisone, pt underwent EGD on 09/11 which showed large 4cm gastric ulcer at anastamosis of previous RNYGB site, colonoscopy 09/11 unremarkable. Over weekend, pt required several more units transfused. Hb continues declining and today pt is symptomatic - maintain T&C - transfuse additional 2u prbc today, with additional 2u prbc on standby - transfer to ICU - PPI iv bid - repeat EGD today - consider nuclear tagged RBC scan if EGD unrevealing although suspect known ulcer is culprit - GenSurg alerted to pt's condition and possible need for surgery should endoscopic therapy be unsuccessful - Discussed w cardio, pt is RCA dominant and had RCA stent placed and thus should maintain DAPT Hypotension: 2/2 hypovolemia 2/2 GIB above. Limited vascular access and several RUE IVs infiltrated, and LACI has AVF for HD. - IR consult for RIJ CVC Deconditioning: PT/OT consults Skin breakdown: wound RN consulted CAD s/p NSTEMI, PAD, HLD: s/p LHC w stent x1 to pRCA on 09/07. C/b groin hematoma for which CT showed large local hematoma but no RP bleed, VascSurg evaluted w arterial doppler and no pseudoaneurysm. - ASA 81, Plavix, Lipitor 40 - holding metoprolol 12.5 bid - Cardio following COPD w chronic hypoxic respiratory failure: continue home inhalers, O2, and nebs prn ESRD on HD MWF: Neph following HFpEF: volume per HD DM2: c/b renal disease and neuropathy, continue basal and SSI HTN: home meds Hypothyroidism: home synthroid Morbid Obesity: BMI 50 PPx: SCDs FEN: NPO@MN for EGD then can have clears (renal ADA), no MIVF Lines: PIV Consults: Cardio, Neph, GI Code: Full Dispo: patient requires inpatient eval and management at this time for ongoing blood loss, anticipate 2-3 more days, evaluating if will need rehab Internal Medicine: Result - Labs CBC & Chem 7: 09/15/18 07:03 09/15/18 07:03 Labs: Short CBC 09/14/18 09/15/18 Range/Units 20:52 07:03 WBC 12.3 H (4.3-11.1) K/mcL Hgb 8.9 L D 6.2 L D (11.5-15.4) g/dL Hct 26.6 L 19.4 L (35.3-44.9) % Plt Count 175 (140-400) K/mcL - ABG Interpretation ABG results: PT/INR, D-dimer PT 12.6 Seconds (9.4-12.1) H 09/03/18 07:49 Consult Discharge Plan - Plan Referrals: Kenrick Pardo, [employer] [Advanced Practice Nurse] - (per the office they will call the patient at home with a follow up appointment) Cecy Valdez MD [Primary Care Provider] - 09/21/18 11:45 am ()
[2018-09-15 08:41] LABS: Calcium 7.1 mg/dL (8.6-10.3); Potassium 4.7 mEq/L (3.5-5.1)
[2018-09-15] MEDS ORDERED: 0.9 % Sodium Chloride 500 ML ONE ×2 (10:42→13:34)
[2018-09-15] MEDS ORDERED: *HR* Propofol 200 MG/20 ML VIAL IVP ONE (14:10)
--- NOTE | 2018-09-15 14:22 | Anesthesia Evaluation PreOp ---
Date of Encounter: 09/15/18 Time of Encounter: 14:20 - Past History Planned Operation: EGD Cardiac History: CHF (EF 45%), HTN, Hyperlipidemia, Cardiac Stent (MAXWELL to RCA 09/07/2018. ASA and plavix have been continued) Pulmonary History: Asthma, COPD, DESTINY Dx, Other (HCAP) PIN CLEANER History: Denies Any Significant HX Other Medical History: Renal (ESRD on HD), Diabetes Type II, Thyroid (hypo), GERD, Other (GI bleed, BMI 45) Anesthesia History: No Prior Anesthetic Complications, Past Anesthesia : No Alcohol Use: none Drug use: none Medications and Allergies Atorvastatin [Lipitor] 40 mg PO QPM 01/16/15 [History] Gabapentin [Neurontin] 100 - 300 mg PO HS PRN 08/13/16 [History] Lactobacillus Combination No.8 [Adult Probiotic] 1 cap PO QPM 08/13/16 [History] Multivitamin [Multivitamins] 1 tab PO DAILY 08/13/16 [History] Sodium Bicarbonate 650 mg PO TID 08/13/16 [History] Calcium Acetate [Phos-LO] 2,001 mg PO TIDWM 10/31/16 [History] Insulin Regular, Human [Novolin R] 0 unit SQ TIDAC PRN 10/31/16 [History] Oxygen 2 l NS HS 10/31/16 [History] Fluticasone Propionate Nasal [Flonase] 2 spr NS BID PRN 07/01/17 [History] Fluticasone/Salmeterol [Advair 250-50 Diskus] 1 puff IH BID 07/01/17 [History] HYDROcodone/Acet 5/325 mg [[place] 5-325 mg] 1 tab PO Q6H PRN 5 Days #20 tab 07/01/17 [Rx] Aspirin [Adult Aspirin Regimen] 81 mg PO QPM 09/02/18 [History] Calcium Acetate [Phos-LO] 1,334 mg PO DAILY 09/02/18 [History] Ergocalciferol (VITAMIN D2) [Vitamin D2] 50,000 unit PO SA 09/02/18 [History] Levothyroxine Sodium 50 mcg PO QAM 09/02/18 [History] Psyllium Husk [Fiber] 0.52 gm PO DAILY 09/02/18 [History] Silver Sulfadiazine [Ssd] 1 appl NS HS 09/02/18 [History] raNITIdine HCl [Zantac] 300 mg PO QPM 09/02/18 [History] Allergy/AdvReac Type Severity Reaction Status Date / Time levofloxacin Allergy Severe "HIVES, Verified 09/02/18 21:06 ITCHING, BURNING" - Meds/Allergy Pre-op Review Medications Reviewed: Yes Allergies Reviewed: Yes Beta Blockers on Current Med List: No Anesthesia Results - Labs 09/15/18 07:03 09/15/18 07:03 - Imaging EKG: report reviewed Additional studies: 09/07/2018 LEFT HEART CATH Stent w/ PTCA Single Major Vessel (MAXWELL pRCA) Indications: Non-Stemi ACS > 24 hrs NSTE - ACS Impressions: There is severe one vessel coronary artery disease. The left ventricle is normal and has normal contractility EF 45% Patient had successful PTCA/Drug-Eluting Stent placement in the proximal RCA. Short stature and small caliber radial Morbid obesity BMI > 50 09/03/18 ECHO: Impressions: LVEF 50-55%. Mild segmental left ventricular systolic dysfunction. Mild concentric left ventricular hypertrophy. Moderate left ventricular diastolic dysfunction. Moderately dilated left atrium. Mildly dilated right ventricle with normal function. Mild mitral regurgitation. Mild tricuspid regurgitation. No pulmonary hypertension. Anesthesia Exam Vital Signs/O2 Sat/Glucose, Most Recent Temp Pulse Resp BP Pulse Ox 98.2 F 78 18 101/45 100 09/15/18 14:11 09/15/18 14:11 09/15/18 14:11 09/15/18 14:11 09/15/18 14:11 Blood Glucose* 210 Weight: 102 kg NPO (# of Hours): > 8 hr - HEENT Pupil (Motor): Pupils equal Mallampati: III Teeth: Missing, Poor dentition - PIN CLEANER LOC: Oriented PIN CLEANER Motor: Normal RUE, Normal LUE, Normal RLE, Normal LLE, Normal Face PIN CLEANER Sensory: Normal: RUE, LUE, RLE, LLE, Face - Cardiac Rhythm: Regular Murmur: None - Pulmonary Breath Sounds: bilateral Clear Respiratory Effort: Symmetrical Anesthesia Assess/Plan ASA Score: 4 (NSTEMI with MAXWELL to RCA on 09/07/18, HTN, hyperlipidemia, DESTINY, asthma, ESRD on HD, morbid obesity) Level of consciousness: Cooperative, Oriented Anesthetic Plan: MAC Monitoring Plan: Standard Monitors Recovery Plan: PACU
[2018-09-15] MEDS: 0.9 % Sodium Chloride 500 ML IVC SCH ×3 (15:07→23:44)
--- NOTE | 2018-09-15 16:37 | IR Procedure Note ---
Date of procedure: 09/15/18 Consent Obtained: Verbal consent, Written consent Timeout: Correct patient and procedure verified, Correct site verified, Time out performed, Skin prep completed Local anesthetic: Lidocaine 1% Indications: Need for IV access Procedure Performed: Central venous line placement Was there an assistant financial accountant present: No Site/Technique: Right IJ central line placed bedside Results/Findings: Line placed through IJ collateral Estimated blood loss (cc): 3 Complications: None; Tolerated procedure well Post Procedure Treatment Plan: OK to use the line now Specimen: None
[2018-09-15] MEDS ORDERED: 0.9 % Sodium Chloride 250 ML ONE (17:02)
[2018-09-15] MEDS: Lactobacillus 1 EACH CAP.SPRINK PO SCH (20:07)
[2018-09-15] MEDS: Gabapentin 100 MG CAPSULE PO SCH (20:07)
[2018-09-15] MEDS: Aspirin Enteric Coated 81 MG Tablet PO SCH (20:07)
--- NOTE | 2018-09-15 20:22 | Anesthesia Evaluation PreOp ---
Date of Encounter: 09/15/18 Time of Encounter: 20:20 - Past History Planned Operation: Push Enteroscopy Cardiac History: CHF, HTN, Hyperlipidemia, Cardiac Stent (NSTEMI with MAXWELL to RCA 09/07/2018) Pulmonary History: Asthma, COPD, DESTINY Dx, Other (HCAP) LIFE COACH History: Denies Any Significant HX Other Medical History: Renal (ESRD on HD), Diabetes Type II, Thyroid, GERD, Other (obesity BMI=45.7, anemia--being transfused) Anesthesia History: No Prior Anesthetic Complications, Past Anesthesia Alcohol Use: none Drug use: none Medications and Allergies Atorvastatin [Lipitor] 40 mg PO QPM 01/16/15 [History] Gabapentin [Neurontin] 100 - 300 mg PO HS PRN 08/13/16 [History] Lactobacillus Combination No.8 [Adult Probiotic] 1 cap PO QPM 08/13/16 [History] Multivitamin [Multivitamins] 1 tab PO DAILY 08/13/16 [History] Sodium Bicarbonate 650 mg PO TID 08/13/16 [History] Calcium Acetate [Phos-LO] 2,001 mg PO TIDWM 10/31/16 [History] Insulin Regular, Human [Novolin R] 0 unit SQ TIDAC PRN 10/31/16 [History] Oxygen 2 l NS HS 10/31/16 [History] Fluticasone Propionate Nasal [Flonase] 2 spr NS BID PRN 07/01/17 [History] Fluticasone/Salmeterol [Advair 250-50 Diskus] 1 puff IH BID 07/01/17 [History] HYDROcodone/Acet 5/325 mg [[place] 5-325 mg] 1 tab PO Q6H PRN 5 Days #20 tab 07/01/17 [Rx] Aspirin [Adult Aspirin Regimen] 81 mg PO QPM 09/02/18 [History] Calcium Acetate [Phos-LO] 1,334 mg PO DAILY 09/02/18 [History] Ergocalciferol (VITAMIN D2) [Vitamin D2] 50,000 unit PO SA 09/02/18 [History] Levothyroxine Sodium 50 mcg PO QAM 09/02/18 [History] Psyllium Husk [Fiber] 0.52 gm PO DAILY 09/02/18 [History] Silver Sulfadiazine [Ssd] 1 appl NS HS 09/02/18 [History] raNITIdine HCl [Zantac] 300 mg PO QPM 09/02/18 [History] Allergy/AdvReac Type Severity Reaction Status Date / Time levofloxacin Allergy Severe "HIVES, Verified 09/02/18 21:06 ITCHING, BURNING" - Meds/Allergy Pre-op Review Medications Reviewed: Yes Allergies Reviewed: Yes Beta Blockers on Current Med List: No Anesthesia Results - Labs 09/15/18 07:03 09/15/18 07:03 - Imaging EKG: report reviewed (09/02/2018 Possible ectopic atrial rhythm RBBB and LAFB) Chest x-ray: report reviewed (09/15/2018 IMPRESSION: Placement of right IJ central venous catheter with tip in distal SVC. No pneumothorax. Marked interval improvement to previously noted airspace opacities to the right lung with still some minimal linear opacity persisting to the right mid lung zone which may be on the basis of postinflammatory scarring, resolving infiltrate or some mild atelectasis.) Additional studies: 09/07/2018 LEFT HEART CATH Stent w/ PTCA Single Major Vessel (MAXWELL pRCA) Indications: Non-Stemi ACS > 24 hrs NSTE - ACS Impressions: There is severe one vessel coronary artery disease. The left ventricle is normal and has normal contractility EF 45% Patient had successful PTCA/Drug-Eluting Stent placement in the proximal RCA. Short stature and small caliber radial Morbid obesity BMI > 50 09/03/18 ECHO: Impressions: LVEF 50-55%. Mild segmental left ventricular systolic dysfunction. Mild concentric left ventricular hypertrophy. Moderate left ventricular diastolic dysfunction. Moderately dilated left atrium. Mildly dilated right ventricle with normal function. Mild mitral regurgitation. Mild tricuspid regurgitation. No pulmonary hypertension. Anesthesia Exam Vital Signs/O2 Sat/Glucose, Most Recent Temp Pulse Resp BP Pulse Ox 98 F 87 16 92/71 100 09/15/18 18:11 09/15/18 20:00 09/15/18 20:00 09/15/18 20:00 09/15/18 20:00 Blood Glucose* 210 Height: 4'11''/1.5m Weight: 226 lbs/102.9 kg - HEENT Pupil (Motor): EOMI Mallampati: III Teeth: Missing, Poor dentition Oral Opening: Greater than 3 - LIFE COACH LOC: Oriented LIFE COACH Motor: Normal RUE, Normal LUE, Normal RLE, Normal LLE, Normal Face LIFE COACH Sensory: Normal: RUE, LUE, RLE, LLE, Face - Cardiac Rhythm: Regular Murmur: None - Pulmonary Breath Sounds: bilateral Clear Respiratory Effort: Symmetrical Anesthesia Assess/Plan ASA Score: 4 Level of consciousness: Cooperative, Oriented, Tranquil Anesthetic Plan: MAC Monitoring Plan: Standard Monitors Recovery Plan: ICU
[2018-09-15 22:28] LABS: Hematocrit 22.7 % (35.3-44.9); Hemoglobin 7.5 g/dL (11.5-15.4); Mean Corpuscular Hemoglobin 29.8 pg (28.0-33.3); Mean Corpuscular Volume 90.1 fL (83.0-100.0); Mean Platelet Volume 11.6 fL (9.4-12.4); Platelet Count 151 K/mcL (140-400); Red Blood Count 2.52 M/mcL (3.82-4.97); Red Cell Distribution Width 16.2 % (11.5-14.5)
[2018-09-15] MEDS ORDERED: Norepinephrine 4 MG in D5% in Water 250 ML IVC SCH (23:45)
--- NOTE | 2018-09-15 23:52 | Nephrology Progress Note ---
Date of Encounter: 09/15/18 - Assessment and Plan (1) Dyspnea Current Visit: Yes Status: Acute Qualifiers: Dyspnea type: dyspnea on exertion Qualified Code(s): R06.09 - Other forms of dyspnea (2) Anemia Current Visit: No Status: Chronic Qualifiers: Anemia type: other cause Other causes of anemia: chronic disease, neoplastic Qualified Code(s): D63.0 - Anemia in neoplastic disease (3) End stage renal disease Current Visit: Yes Status: Chronic (4) Anuria Current Visit: Yes Status: Chronic Subjective Principal diagnosis: Pneumonia; elevated troponin Interval history: Intreim events noted, pt seen and examined sitting up in chair with no new complaints. at chairside Objective - Vital Signs Vital signs: Vital Signs Temp Pulse Resp BP Pulse Ox 09/15/18 23:49 87 09/15/18 23:41 98.1 F 09/15/18 23:00 88 21 73/46 100 09/15/18 22:00 83 16 107/35 100 09/15/18 21:00 92 16 89/51 100 09/15/18 20:55 98.0 F 83 16 92/71 100 09/15/18 20:31 16 100 09/15/18 20:00 98.1 F 81 16 92/71 100 09/15/18 19:00 88 16 87/33 100 09/15/18 18:11 98 F 87 20 88/56 96 09/15/18 18:00 89 09/15/18 17:56 97.9 F 88 23 98/74 100 09/15/18 17:40 97.9 F 88 21 98/74 100 09/15/18 15:50 98.1 F 84 16 86/46 100 09/15/18 15:49 84 18 86/46 100 09/15/18 15:02 98.2 F 78 18 101/45 100 09/15/18 14:11 98.2 F 78 18 101/45 100 09/15/18 13:52 98.1 F 80 16 97/55 100 09/15/18 13:40 98.1 F 84 18 104/62 100 09/15/18 12:05 98.5 F 72 16 100 09/15/18 11:35 76/53 09/15/18 11:22 98.3 F 78 16 76/49 100 09/15/18 11:07 98.3 F 84 18 84/31 100 09/15/18 08:01 16 100 09/15/18 07:46 84 16 104/66 100 09/15/18 07:27 98.5 F 82 17 100 09/15/18 03:00 84 09/15/18 02:52 97.8 F 84 18 99/57 99 09/15/18 00:06 89 09/15/18 00:03 97.7 F 89 18 94/62 99 Intake and Output 09/15/18 09/15/18 09/15/18 07:59 15:59 23:59 Intake Total 0 / 1390 450 / 1390 940 / 1390 Output Total 0 / 0 0 / 0 Balance 0 / 1390 450 / 1390 940 / 1390 Intake: IV Fluids 100 / 100 0.9 % Sodium Chloride 500 ML @ 100 / 100 50 mls/hr IVC .Q10H [facility] Rx#: [id number] Oral 0 / 240 240 / 240 Blood Product 350 / 1050 700 / 1050 Rbcs Leuko Poor As-1 Unit 350 / 350 [id number] Rbcs Leuko Poor As-1 Unit 350 / 350 [id number] Rbcs Leuko Poor As-1 Unit 0 / 350 350 / 350 [id number] Output: Urine 0 / 0 0 / 0 Other: Meal NPO Percent of Meal Consumed 0% Stool Size Small Moderate Large Stool Consistency loose loose soft Stool Characteristics Tarry Tarry Stool Color Black Black Dark Red Blood Blood Tinged # Bowel Movements 1 2 Weight 102.9 kg 120.5 kg Blood Glucose* 224 210 167 Patient Weight 09/15/18 23:59 Weight 120.5 kg - Lab 09/15/18 21:35 09/15/18 07:03 Consult Discharge Plan - Plan Referrals: Kenrick Pardo, BRADLEY [Advanced Practice Nurse] - (per the office they will call the patient at home with a follow up appointment) Cecy Valdez MD [Primary Care Provider] - 09/21/18 11:45 am ()
[2018-09-16 01:45] LABS: Hematocrit 18.2 % (35.3-44.9); Hemoglobin 6.1 g/dL (11.5-15.4); Mean Corpuscular HGB Conc 33.5 g/dL (31.6-35.5); Mean Corpuscular Hemoglobin 30.3 pg (28.0-33.3); Mean Corpuscular Volume 90.5 fL (83.0-100.0); Mean Platelet Volume 11.4 fL (9.4-12.4); Platelet Count 145 K/mcL (140-400); Red Blood Count 2.01 M/mcL (3.82-4.97); Red Cell Distribution Width 16.5 % (11.5-14.5)
[2018-09-16] MEDS ORDERED: Norepinephrine 16 MG in D5% in Water 250 ML IVC SCH (01:45)
[2018-09-16 02:05] LABS: Calcium 6.5 mg/dL (8.6-10.3); Potassium 5.7 mEq/L (3.5-5.1)
[2018-09-16] MEDS ORDERED: 0.9 % Sodium Chloride 1,000 ML ONE (03:58)
[2018-09-16] MEDS ORDERED: Lidocaine -MPF 2% 5 ML VIAL ONE (03:58)
[2018-09-16] MEDS: Norepinephrine 16 MG in D5% in Water 500 ML IVC SCH ×2 (04:56→14:53)
[2018-09-16] MEDS: Vasopressin 40 UNIT in D5% in Water 100 ML IV SCH ×2 (05:10→08:05)
[2018-09-16] MEDS: Levothyroxine 25 MCG TABLET PO SCH (05:33)
--- NOTE | 2018-09-16 06:11 | Anesthesia Progress Note ---
Date of Encounter: 09/16/18 Time of Encounter: 04:30 Anesthesia Note - Note Note: Contacted By ICU requesting arterial line placement. Unable to place A-line despite multiple attempts in right radial and right brachial artery using ultrasound guidance with 20g arrow catheter. 09/16/18 06:11
[2018-09-16] MEDS: Budesonide/Formoterol 80/4.5 MDI IH SCH (07:24)
--- NOTE | 2018-09-16 07:28 | Event Note ---
Date of Encounter: 09/16/18 Time of Encounter: 05:00 Assessed patient due to hemodynamic instability in the setting of continued GI bleed. Continues to have labile blood pressure fluctuating between 60s to 100 systolic. Patient currently mildly tachycardic in the 1 teens. Repeat hemoglobin 6.1 at 1:[address] Del Valle with anesthesiologist attempted to place a right radial arterial line to obtain a more accurate assessment of the patient's blood pressure, but was unable to successfully cannulate the artery. Case was discussed with nephrology earlier this evening and recommended no further saline or blood transfusions. Given our concern for hemodynamic instability, continue GI bleed and now increasing tachycardia, asked the nurse to repeat hemoglobin and transfuse 1 unit of packed red blood cells. Will consult pulmonary critical care for aid in further management of patient.
[2018-09-16 07:32] LABS: Hematocrit 19.2 % (35.3-44.9); Hemoglobin 6.3 g/dL (11.5-15.4)
[2018-09-16] MEDS ORDERED: 0.9 % Sodium Chloride 500 ML ONE (07:54)
[2018-09-16] MEDS ORDERED: DESMOPRESSIN IVPB SCH (08:00)
[2018-09-16] MEDS ORDERED: SODIUM CHLORIDE 0.9% IVPB SCH (08:00)
--- NOTE | 2018-09-16 08:17 | Pulmonology History & Physical ---
Date of Encounter: 09/16/18 Time of Encounter: 08:16 History of Present Illness HPI: Ms. Richey is a 72 year old female Past Med Surg Social Fam HX - Past Medical History Medical history: arthritis, asthma, CHF, COPD, diabetes, dialysis, GERD, hyperlipidemia, hypertension, osteoporosis, renal disease, thyroid disease, other Additional medical history: IDDM,osteoarthitis,steel from AV-fistula,kidney di sease,onychomycosis, Psychiatric history: no psych history - Past Surgical History Surgical History: cataract, cholecystectomy, herniorrhaphy, other Additional surgical history: gastric by pass,T&A,l arm dialysis fistula,bypass around fistula,hernia stomach,angioplasty l arm, bypass l arm - Social History Smoking Status: Never smoker Smokeless Tobacco Status: No Alcohol use: none Drug use: none - Family History Father Living Status: Hx Family Cardiac Disorders: Yes Hx Family Cancer: Yes (Bone CA) Medications and Allergies Atorvastatin [Lipitor] 40 mg PO QPM 01/16/15 [History] Gabapentin [Neurontin] 100 - 300 mg PO HS PRN 08/13/16 [History] Lactobacillus Combination No.8 [Adult Probiotic] 1 cap PO QPM 08/13/16 [History] Multivitamin [Multivitamins] 1 tab PO DAILY 08/13/16 [History] Sodium Bicarbonate 650 mg PO TID 08/13/16 [History] Calcium Acetate [Phos-LO] 2,001 mg PO TIDWM 10/31/16 [History] Insulin Regular, Human [Novolin R] 0 unit SQ TIDAC PRN 10/31/16 [History] Oxygen 2 l NS HS 10/31/16 [History] Fluticasone Propionate Nasal [Flonase] 2 spr NS BID PRN 07/01/17 [History] Fluticasone/Salmeterol [Advair 250-50 Diskus] 1 puff IH BID 07/01/17 [History] HYDROcodone/Acet 5/325 mg [[place] 5-325 mg] 1 tab PO Q6H PRN 5 Days #20 tab 07/01/17 [Rx] Aspirin [Adult Aspirin Regimen] 81 mg PO QPM 09/02/18 [History] Calcium Acetate [Phos-LO] 1,334 mg PO DAILY 09/02/18 [History] Ergocalciferol (VITAMIN D2) [Vitamin D2] 50,000 unit PO SA 09/02/18 [History] Levothyroxine Sodium 50 mcg PO QAM 09/02/18 [History] Psyllium Husk [Fiber] 0.52 gm PO DAILY 09/02/18 [History] Silver Sulfadiazine [Ssd] 1 appl NS HS 09/02/18 [History] raNITIdine HCl [Zantac] 300 mg PO QPM 09/02/18 [History] Allergy/AdvReac Type Severity Reaction Status Date / Time levofloxacin Allergy Severe "HIVES, Verified 09/02/18 21:06 ITCHING, BURNING" All Systems: The remainder of the systems were reviewed and are negative Physical Examination Vital Signs: Vital Signs, Last 4 Hours Temp Pulse Resp BP Pulse Ox 09/16/18 07:30 98.7 F 09/16/18 06:00 108 18 76/29 100 09/16/18 05:00 117 20 113/52 100 Results - Laboratory Findings CBC and BMP: 09/16/18 06:48 09/16/18 01:30 PT/INR, D-dimer PT 12.6 Seconds (9.4-12.1) H 09/03/18 07:49 Abnormal lab findings: Abnormal lab results WBC 11.9 K/mcL (4.3-11.1) H 09/15/18 21:35 RBC 2.01 M/mcL (3.82-4.97) L 09/16/18 01:30 Hgb 6.3 g/dL (11.5-15.4) L 09/16/18 06:48 Hct 19.2 % (35.3-44.9) L 09/16/18 06:48 MCV 101.8 fL (83.0-100.0) H 09/08/18 03:51 MCHC 30.5 g/dL (31.6-35.5) L 09/12/18 08:40 RDW 16.5 % (11.5-14.5) H 09/16/18 01:30 Plt Count 135 K/mcL (140-400) L 09/12/18 16:00 Immature Gran % 4.3 % (0-4) H 09/10/18 04:59 16.2 K/mcL (1.6-8.9) H 09/10/18 04:59 0.4 K/mcL (0.6-4.6) L 09/03/18 03:51 Nucleated RBCs/100 WBC 0.6 /100 WBC (0) H 09/10/18 04:59 PT 12.6 Seconds (9.4-12.1) H 09/03/18 07:49 Heparin Anti-Xa, Unfract 0.17 IU/mL (0.30-0.70) L 09/04/18 12:00 Sodium 133 mEq/L (136-145) L 09/03/18 03:51 Potassium 5.7 mEq/L (3.5-5.1) H 09/16/18 01:30 Chloride 97 mEq/L (98-107) L 09/09/18 03:09 Carbon Dioxide 22 mEq/L (23-29) L 09/04/18 06:03 BUN 84 mg/dL (8-23) H 09/16/18 01:30 5.66 mg/dL (0.60-1.20) H 09/16/18 01:30 Est GFR ( Amer) 9 (> 60) L 09/16/18 01:30 Est GFR (Non-Af Amer) 7 (> 60) L 09/16/18 01:30 Glucose 168 mg/dL (70-105) H 09/16/18 01:30 POC Glucose 167 mg/dL (70-99) H 09/15/18 20:04 311 (280-300) H 09/16/18 01:30 Calcium 6.5 mg/dL (8.6-10.3) L 09/16/18 01:30 198 Units/L (34-104) H 09/02/18 13:27 2.59 ng/mL (< 0.04) H* 09/04/18 08:39 B-Natriuretic Peptide 1409 pg/mL (Less than 100) H 09/02/18 13:27 Hep Bs Antibody 3.40 mIU/mL (10.00-) L 09/03/18 03:51 Crossmatch See Detail 09/12/18 08:40
[2018-09-16] MEDS ORDERED: Isovue-370 500 ML BOTTLE IVP ONE (08:20)
[2018-09-16] MEDS: Pantoprazole 40 MG VIAL IVP SCH ×2 (08:20→12:39)
[2018-09-16] MEDS ORDERED: Phenylephrine 10 MG in D5% in Water 250 ML IVC SCH (09:15)
--- NOTE | 2018-09-16 09:56 | Pulmonology Consult Note ---
Date of Encounter: 09/16/18 Time of Encounter: 09:54 History of Present Illness Consult date: 09/16/18 Requesting physician: Eric Mota Past Med Surg Social Fam HX - Past Medical History Medical history: arthritis, asthma, CHF, COPD, diabetes, dialysis, GERD, hyperlipidemia, hypertension, osteoporosis, renal disease, thyroid disease, other Additional medical history: IDDM,osteoarthitis,steel from AV-fistula,kidney disease,onychomycosis, Psychiatric history: no psych history - Past Surgical History Surgical History: cataract, cholecystectomy, herniorrhaphy, other Additional surgical history: gastric by pass,T&A,l arm dialysis fistula,bypass around fistula,hernia stomach,angioplasty l arm, bypass l arm - Social History Smoking Status: Never smoker Smokeless Tobacco Status: No Alcohol use: none Drug use: none - Family History Father Living Status: Hx Family Cardiac Disorders: Yes Hx Family Cancer: Yes (Bone CA) Medications and Allergies Atorvastatin [Lipitor] 40 mg PO QPM 01/16/15 [History] Gabapentin [Neurontin] 100 - 300 mg PO HS PRN 08/13/16 [History] Lactobacillus Combination No.8 [Adult Probiotic] 1 cap PO QPM 08/13/16 [History] Multivitamin [Multivitamins] 1 tab PO DAILY 08/13/16 [History] Sodium Bicarbonate 650 mg PO TID 08/13/16 [History] Calcium Acetate [Phos-LO] 2,001 mg PO TIDWM 10/31/16 [History] Insulin Regular, Human [Novolin R] 0 unit SQ TIDAC PRN 10/31/16 [History] Oxygen 2 l NS HS 10/31/16 [History] Fluticasone Propionate Nasal [Flonase] 2 spr NS BID PRN 07/01/17 [History] Fluticasone/Salmeterol [Advair 250-50 Diskus] 1 puff IH BID 07/01/17 [History] HYDROcodone/Acet 5/325 mg [[place] 5-325 mg] 1 tab PO Q6H PRN 5 Days #20 tab 07/01/17 [Rx] Aspirin [Adult Aspirin Regimen] 81 mg PO QPM 09/02/18 [History] Calcium Acetate [Phos-LO] 1,334 mg PO DAILY 09/02/18 [History] Ergocalciferol (VITAMIN D2) [Vitamin D2] 50,000 unit PO SA 09/02/18 [History] Levothyroxine Sodium 50 mcg PO QAM 09/02/18 [History] Psyllium Husk [Fiber] 0.52 gm PO DAILY 09/02/18 [History] Silver Sulfadiazine [Ssd] 1 appl NS HS 09/02/18 [History] raNITIdine HCl [Zantac] 300 mg PO QPM 09/02/18 [History] Allergy/AdvReac Type Severity Reaction Status Date / Time levofloxacin Allergy Severe "HIVES, Verified 09/02/18 21:06 ITCHING, BURNING" All Systems: The remainder of the systems were reviewed and are negative Physical Examination Vital Signs: Vital Signs, Last 4 Hours Temp Pulse Resp BP Pulse Ox 09/16/18 09:50 98.8 F 118 22 66/43 100 09/16/18 07:30 98.7 F 09/16/18 07:00 108 19 92/48 99 09/16/18 06:00 108 18 76/29 100 Results - Laboratory Findings CBC and BMP: 09/16/18 06:48 09/16/18 01:30 PT/INR, D-dimer PT 12.6 Seconds (9.4-12.1) H 09/03/18 07:49 Abnormal lab findings: Abnormal lab results WBC 11.9 K/mcL (4.3-11.1) H 09/15/18 21:35 RBC 2.01 M/mcL (3.82-4.97) L 09/16/18 01:30 Hgb 6.3 g/dL (11.5-15.4) L 09/16/18 06:48 Hct 19.2 % (35.3-44.9) L 09/16/18 06:48 MCV 101.8 fL (83.0-100.0) H 09/08/18 03:51 MCHC 30.5 g/dL (31.6-35.5) L 09/12/18 08:40 RDW 16.5 % (11.5-14.5) H 09/16/18 01:30 Plt Count 135 K/mcL (140-400) L 09/12/18 16:00 Immature Gran % 4.3 % (0-4) H 09/10/18 04:59 16.2 K/mcL (1.6-8.9) H 09/10/18 04:59 0.4 K/mcL (0.6-4.6) L 09/03/18 03:51 Nucleated RBCs/100 WBC 0.6 /100 WBC (0) H 09/10/18 04:59 PT 12.6 Seconds (9.4-12.1) H 09/03/18 07:49 Heparin Anti-Xa, Unfract 0.17 IU/mL (0.30-0.70) L 09/04/18 12:00 Sodium 133 mEq/L (136-145) L 09/03/18 03:51 Potassium 5.7 mEq/L (3.5-5.1) H 09/16/18 01:30 Chloride 97 mEq/L (98-107) L 09/09/18 03:09 Carbon Dioxide 22 mEq/L (23-29) L 09/04/18 06:03 BUN 84 mg/dL (8-23) H 09/16/18 01:30 5.66 mg/dL (0.60-1.20) H 09/16/18 01:30 Est GFR ( Amer) 9 (> 60) L 09/16/18 01:30 Est GFR (Non-Af Amer) 7 (> 60) L 09/16/18 01:30 Glucose 168 mg/dL (70-105) H 09/16/18 01:30 POC Glucose 167 mg/dL (70-99) H 09/15/18 20:04 311 (280-300) H 09/16/18 01:30 Calcium 6.5 mg/dL (8.6-10.3) L 09/16/18 01:30 198 Units/L (34-104) H 09/02/18 13:27 2.59 ng/mL (< 0.04) H* 09/04/18 08:39 B-Natriuretic Peptide 1409 pg/mL (Less than 100) H 09/02/18 13:27 Hep Bs Antibody 3.40 mIU/mL (10.00-) L 09/03/18 03:51 Crossmatch See Detail 09/16/18 08:16 - Clinical Findings Intake & Output: Intake & Output 09/15/18 09/16/18 09/16/18 23:59 07:59 15:59 Intake Total 940 / 1390 254.0 / 254.0 0 / 254.0 Output Total 0 / 0 0 / 0 Balance 940 / 1390 254.0 / 254.0 0 / 254.0 Weight 120.5 kg Consult Discharge Plan - Plan Referrals: Kenrick Pardo, [facility] [Advanced Practice Nurse] - (per the office they will call the patient at home with a follow up appointment) Cecy Valdez MD [Primary Care Provider] - 09/21/18 11:45 am ()
[2018-09-16] MEDS ORDERED: 0.9 % Sodium Chloride 250 ML ONE (10:51)
[2018-09-16] MEDS ORDERED: Propofol 500 MG/50 ML INFUS..BTL ONE (11:08)
[2018-09-16] MEDS ORDERED: *HR* EPINEPHrine 1 MG/ML AMPUL ONE (11:13)
[2018-09-16] MEDS ORDERED: *HR* Succinylcholine 200 MG/10 ML VIAL IVP ONE (11:13)
[2018-09-16] MEDS ORDERED: Lidocaine -MPF 2% 2 ML VIAL ONE (11:13)
[2018-09-16] MEDS ORDERED: *HR* PHENYLEPHRINE 1,000 MCG/10 ML SYRINGE IVP ONE ×2 (11:16→11:56)
[2018-09-16] MEDS ORDERED: *HR* Vasopressin 20 UNIT/ML VIAL ONE (11:22)
[2018-09-16] MEDS ORDERED: *HR* Phenylephrine 10 MG/ML VIAL ONE (11:57)
[2018-09-16] MEDS: Insulin LISPRO 300 UNITS/3 ML VIAL SQ SCH ×2 (12:32→12:42)
[2018-09-16] MEDS: Phenylephrine 50 MG in D5% in Water 250 ML IVC SCH ×2 (12:33→14:36)
[2018-09-16] MEDS: Nystatin POWDER 30 GM BOTTLE TP SCH (12:33)
[2018-09-16 13:09] LABS: Hematocrit 30.2 % (35.3-44.9)
[2018-09-16 13:10] LABS: Hemoglobin 9.9 g/dL (11.5-15.4)
--- NOTE | 2018-09-16 13:14 | Discharge Summary ---
<GlendaLucas melendrezmark M - Last Filed: 09/16/18 16:07> Orders not resulted at time of discharge: Pending orders 09/02/18 17:12 Legionella Antigen [RM] Stat S. Pneumoniae Antigen [RM] Stat 09/08/18 06:00 ECG 12 lead ECG [ECG] AM 0609/08/18 22:59 EKG [ECG 12 lead ECG] [ECG] Stat 09/09/18 11:00 ECG 12 lead ECG [ECG] Stat 09/16/18 08:16 Red Blood Cells [BBK] Stat Type and Screen [BBK] Stat 09/17/18 04:00 Basic Metabolic Panel AM 0400 Basic Metabolic Panel AM 0400 CBC no Diff [Complete Blood Count w/o Diff] [HEME] AM 0400 Complete Blood Count w/o Diff [HEME] AM 0400 09/18/18 04:00 Basic Metabolic Panel AM 0400 Basic Metabolic Panel AM 0400 CBC no Diff [Complete Blood Count w/o Diff] [HEME] AM 0400 Complete Blood Count w/o Diff [HEME] AM 0400 09/19/18 04:00 Basic Metabolic Panel AM 0400 Basic Metabolic Panel AM 0400 CBC no Diff [Complete Blood Count w/o Diff] [HEME] AM 0400 Complete Blood Count w/o Diff [HEME] AM 0400 09/20/18 04:00 Basic Metabolic Panel AM 0400 CBC no Diff [Complete Blood Count w/o Diff] [HEME] AM 0400 09/21/18 04:00 Basic Metabolic Panel AM 0400 CBC no Diff [Complete Blood Count w/o Diff] [HEME] AM 04009/22/18 04:00 Basic Metabolic Panel AM 0400 CBC no Diff [Complete Blood Count w/o Diff] [HEME] AM 0400 Date of Encounter: 09/16/18 - Discharge Medications Prescriptions: No Action Atorvastatin [Lipitor] 40 mg PO QPM Sodium Bicarbonate 650 mg PO TID Multivitamin [Multivitamins] 1 tab PO DAILY Lactobacillus Combination No.8 [Adult Probiotic] 1 cap PO QPM Gabapentin [Neurontin] 100 - 300 mg PO HS PRN PRN Reason: Pain Oxygen 2 l NS HS Calcium Acetate [Phos-LO] 2,001 mg PO TIDWM Insulin Regular, Human [Novolin R] 0 unit SQ TIDAC PRN PRN Reason: PER SLIDING SCALE Fluticasone/Salmeterol [Advair 250-50 Diskus] 1 puff IH BID Fluticasone Propionate Nasal [Flonase] 2 spr NS BID PRN PRN Reason: Allergy Symptoms HYDROcodone/Acet 5/325 mg [[place] 5-325 mg] 1 tab PO Q6H PRN 5 Days #20 tab PRN Reason: Pain Aspirin [Adult Aspirin Regimen] 81 mg PO QPM Calcium Acetate [Phos-LO] 1,334 mg PO DAILY Ergocalciferol (VITAMIN D2) [Vitamin D2] 50,000 unit PO SA Levothyroxine Sodium 50 mcg PO QAM raNITIdine HCl [Zantac] 300 mg PO QPM Silver Sulfadiazine [Ssd] 1 appl NS HS Psyllium Husk [Fiber] 0.52 gm PO DAILY Home Medications: Atorvastatin [Lipitor] 40 mg PO QPM 01/16/15 [History] Gabapentin [Neurontin] 100 - 300 mg PO HS PRN 08/13/16 [History] Lactobacillus Combination No.8 [Adult Probiotic] 1 cap PO QPM 08/13/16 [History] Multivitamin [Multivitamins] 1 tab PO DAILY 08/13/16 [History] Sodium Bicarbonate 650 mg PO TID 08/13/16 [History] Calcium Acetate [Phos-LO] 2,001 mg PO TIDWM 10/31/16 [History] Insulin Regular, Human [Novolin R] 0 unit SQ TIDAC PRN 10/31/16 [History] Oxygen 2 l NS HS 10/31/16 [History] Fluticasone Propionate Nasal [Flonase] 2 spr NS BID PRN 07/01/17 [History] Fluticasone/Salmeterol [Advair 250-50 Diskus] 1 puff IH BID 07/01/17 [History] HYDROcodone/Acet 5/325 mg [[place] 5-325 mg] 1 tab PO Q6H PRN 5 Days #20 tab 07/01/17 [Rx] Aspirin [Adult Aspirin Regimen] 81 mg PO QPM 09/02/18 [History] Calcium Acetate [Phos-LO] 1,334 mg PO DAILY 09/02/18 [History] Ergocalciferol (VITAMIN D2) [Vitamin D2] 50,000 unit PO SA 09/02/18 [History] Levothyroxine Sodium 50 mcg PO QAM 09/02/18 [History] Psyllium Husk [Fiber] 0.52 gm PO DAILY 09/02/18 [History] Silver Sulfadiazine [Ssd] 1 appl NS HS 09/02/18 [History] raNITIdine HCl [Zantac] 300 mg PO QPM 09/02/18 [History] Allergies/Adverse Reactions: Allergy/AdvReac Type Severity Reaction Status Date / Time levofloxacin Allergy Severe "HIVES, Verified 09/02/18 21:06 ITCHING, BURNING" Labs on day of discharge: Labs from last 24 hours 09/16/18 09/16/18 09/16/18 12:46 08:16 06:48 WBC RBC Hgb 9.9 L D 6.3 L Hct 30.2 L 19.2 L MCV MCH MCHC RDW Plt Count MPV Sodium Potassium Chloride Carbon Dioxide BUN Creatinine Est GFR ( Amer) Est GFR (Non-Af Amer) BUN/Creatinine Ratio Glucose POC Glucose Calculated Osmolality Lactic Acid Calcium Magnesium Blood Type O POSITIVE Antibody Screen NEGATIVE Crossmatch See Detail 09/16/18 09/16/18 09/16/18 01:30 01:30 01:30 WBC 10.1 RBC 2.01 L Hgb 6.1 L Hct 18.2 L MCV 90.5 MCH 30.3 MCHC 33.5 RDW 16.5 H Plt Count 145 MPV 11.4 Sodium 136 Potassium 5.7 H Chloride 104 Carbon Dioxide 26 BUN 84 H Creatinine 5.66 H Est GFR ( Amer) 9 L Est GFR (Non-Af Amer) 7 L BUN/Creatinine Ratio 15 Glucose 168 H POC Glucose Calculated Osmolality 311 H Lactic Acid Calcium 6.5 L Magnesium 1.7 Blood Type Antibody Screen Crossmatch 09/15/18 09/15/18 09/15/18 22:45 21:35 20:04 WBC 11.9 H RBC 2.52 L Hgb 7.5 L Hct 22.7 L MCV 90.1 MCH 29.8 MCHC 33.0 RDW 16.2 H Plt Count 151 MPV 11.6 Sodium Potassium Chloride Carbon Dioxide BUN Creatinine Est GFR ( Amer) Est GFR (Non-Af Amer) BUN/Creatinine Ratio Glucose POC Glucose 167 H Calculated Osmolality Lactic Acid 0.6 Calcium Magnesium Blood Type Antibody Screen Crossmatch 09/15/18 09/12/18 06:26 08:40 WBC RBC Hgb Hct MCV MCH MCHC RDW Plt Count MPV Sodium Potassium Chloride Carbon Dioxide BUN Creatinine Est GFR ( Amer) Est GFR (Non-Af Amer) BUN/Creatinine Ratio Glucose POC Glucose 224 H Calculated Osmolality Lactic Acid Calcium Magnesium Blood Type O POSITIVE Antibody Screen NEGATIVE Crossmatch See Detail - Impressions ITS Impressions Chest X-Ray 09/02/18 13:30 IMPRESSION: 1. Developing focal opacity in the right mid lung. 2. Persistently enlarged cardiac silhouette. D/ / Blake Sprague MD / Blake Sprague MD Interpreting Provider: Blake Sprague MD Echocardiogram 09/03/18 08:14 Impressions: LVEF 50-55%. Mild segmental left ventricular systolic dysfunction. Mild concentric left ventricular hypertrophy. Moderate left ventricular diastolic dysfunction. Moderately dilated left atrium. Mildly dilated right ventricle with normal function. Mild mitral regurgitation. Mild tricuspid regurgitation. No pulmonary hypertension. Left Ventricular Wall Motion: Rest Echo Findings The apex and apical lateral tobin were hypokinetic. All other wall segments showed normal motion. Findings: Study Quality * Technically sub-optimal due to clinical status. ECG Findings * Sinus rhythm with PVCs, BBB. Left Ventricle * LVEF 50-55%. * Normal LV chamber size. * Mild concentric left ventricular hypertrophy. * Mild segmental left ventricular systolic dysfunction. * Moderate left ventricular diastolic dysfunction. * There is no LV thrombus. * Atypical septal motion consistent with bundle branch block. Right Ventricle * Mildly dilated right ventricle with normal function. Left Atrium * Moderately dilated left atrium. Right Atrium * Normal right atrial size. Interatrial Septum * Interatrial septum not well evaluated. Aortic Valve * Moderately calcified aortic valve leaflets. * No aortic regurgitation. * No aortic stenosis. Mitral Valve * Moderate mitral annular calcification * Mildly calcified mitral valve leaflets. * Mild mitral regurgitation. * No mitral stenosis. Tricuspid Valve * Normal tricuspid valve structure. * No tricuspid stenosis. * Mild tricuspid regurgitation. * Estimated RVSP is 26 mmHg. * Estimated RA pressure is 8 mmHg. * No pulmonary hypertension. Pulmonic Valve * Pulmonic valve is not well visualized. * No pulmonic stenosis. * No pulmonic regurgitation. Aorta * Normally sized aortic root. Pericardium * The pericardium appears normal. IVC * The IVC is dilated. * > 50% respiratory change Abdomen/Pelvis CT 09/08/18 08:36 IMPRESSION: 1. Postprocedural changes within the right groin and medial right thigh with subcutaneous soft tissue stranding and skin thickening with a more focal 3.5 x 1.3 cm hematoma. 2. Similar-appearing stranding and skin thickening within the right lower quadrant in the right anterior pelvis similar in appearance to prior exam surrounding the hernia sac. Recommend correlation with any signs of infection or cellulitis. 3. No retroperitoneal hematoma. 4. Extensive vascular calcifications. Stable 1.0 cm splenic artery aneurysm. D/ / 09/08/2018 09:43:26 Tricia Thacker MD / [facility] Interpreting Provider: Tricia Thacker MD Abdomen/Pelvis CT 09/13/18 05:56 IMPRESSION: 1. Unchanged incompletely imaged small to moderate hematoma within the right groin. 2. Worsening trace right pleural effusion. D/ / Sundeep Luis MD / Sundeep Luis MD Interpreting Provider: Sundeep Luis MD Guidance Ultrasound 09/15/18 00:00 IMPRESSION: Ultrasound-guided placement of a nontunneled central line. No immediate complications. D/ / 09/15/2018 16:50:09 Joaquín Lin MD / [facility] Interpreting Provider: Joaquín Lin MD Insertion Non-Tunneled Catheter 09/15/18 14:16 IMPRESSION: Ultrasound-guided placement of a nontunneled central line. No immediate complications. D/ / 09/15/2018 16:50:09 Joaquín Lin MD / [facility] Interpreting Provider: Joaquín Lin MD Bleed Scan Nuclear Medicine 09/15/18 15:27 IMPRESSION: Severely limited exam due to patient motion due to discomfort and termination at the initial 20 minutes with a 14 hour delayed image. There is active GI hemorrhage with blood throughout the colon on the late image. Consideration of CT abdomen/pelvis with/without contrast GI bleed protocol is recommended to try to identify the location of the active hemorrhage. Results of the examination were discussed with ICU resident Analilia Nolen on 09/16/2018 at 8:30 a.m. D/ / 09/16/2018 08:39:21 Ancelmo Becerra MD / [facility] Interpreting Provider: Ancelmo Becerra MD Chest X-Ray 09/15/18 16:28 IMPRESSION: Placement of right IJ central venous catheter with tip in distal SVC. No pneumothorax. Marked interval improvement to previously noted airspace opacities to the right lung with still some minimal linear opacity persisting to the right mid lung zone which may be on the basis of postinflammatory scarring, resolving infiltrate or some mild atelectasis. D/ / 09/15/2018 17:34:13 Morgan Sanford MD / johnathan Interpreting Provider: Morgan Sanford MD Abdomen/Pelvis CT 09/16/18 08:20 IMPRESSION: 1. No acute infective or inflammatory process. 2. No bowel obstruction or evidence for acute process in the GI tract although evaluation limited in the absence of both IV and oral contrast. 3. Small right groin hematoma unchanged. 4. Redemonstration of ventral lower abdomen hernia within large abdominal pannus containing nonobstructed small bowel. D/ / Freeman Peoples MD / Freeman Peoples MD Interpreting Provider: Freeman Peoples MD Date of admission: 09/03/18 13:06 Primary care physician: Cecy Valdez MD Consults: 09/02/18 17:15 Consult to Nephrology [CONS] Routine Consulting Provider: Kidney Angelica/ADRIAN/PIERRE/TEJAS Reason for Consult: Pt is on HD Call Completed: Yes 09/02/18 17:46 Consult to Cardiology [CONS] Routine Comment: Consulting Provider: Cardiology Angelica Reason for Consult: Undetermined irregular heart rhythm Call Completed: No 09/03/18 08:11 Consult to Nurse Navigator [CONS] Routine Comment: hd, pn 09/04/18 10:15 Consult to Dialysis [CONS] ONCE 09/07/18 14:44 Consult to Cardiac Rehabilitation-Phase1 [CONS] Routine Comment: Reason for Consult: post op PCI Call Completed: Yes 09/08/18 15:04 Consult to Vascular Surgery [CONS] Stat Consulting Provider: Vascular Surgery [place] Reason for Consult: right groin hematoma/ acute anemia Call Completed: Yes 09/08/18 16:45 Consult to Dialysis [CONS] ONCE 09/10/18 07:15 Consult to Dialysis [CONS] ONCE 09/10/18 11:17 Consult to Gastroenterology [CONS] Routine Consulting Provider: Gastroenterology Angelica Reason for Consult: acute blood loss anemia requiring 5u prbcs following heart cath and initiation of dual antiplatelet therapy. Does have R thigh hematoma but does not explain degree of blood loss, and RN reports dark tarry stools Call Completed: Yes 09/12/18 10:45 Consult to Dialysis [CONS] ONCE 09/13/18 14:20 Consult to Wound Care [CONS] Routine Reason for Consult: skin breakdown at site of heart cath R groin Call Completed: No 09/14/18 10:00 Consult to Dialysis [CONS] ONCE 09/16/18 07:14 Consult to Pulmonology [CONS] Routine Consulting Provider: Pulm Crit Care & Sleep Angelica Reason for Consult: Hemodynamically unstable in the setting of active lower GI bleed on pressor support. Call Completed: Yes - Patient Status Disposition: Transfer Other Condition: Critical - Discharge Instructions Follow Up With: Kenrick Pardo, ROLLER LEVELER [Advanced Practice Nurse] - (per the office they will call the patient at home with a follow up appointment) Cecy Valdez MD [Primary Care Provider] - 09/21/18 11:45 am () - Hospital Course Hospital course: Ms. Richey is a 72 year old female - Time Spent with Patient Total time spent providing and/or coordinating discharge services: Physical Examination Vital Signs: Vital Signs, Last 4 Hours Temp Pulse Resp BP Pulse Ox 09/16/18 14:00 122 20 121/63 99 09/16/18 13:00 123 23 91/73 99 09/16/18 12:17 98.7 F 112 16 136/59 95 - Attending Attestation I examined this patient and my medical decision-making was reviewed with the Resident Physician. I agree with the documented findings, disposition and treatment plan as described except to the extent set forth below. Patient seen and examined. Labs, radiology, chart personally reviewed. 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 Pulmonary: Acceptable oxygenation and ventilation, however with her general condition is deteriorating significantly and have explained to her that she may need invasive mechanical ventilation and she understand and she agreed to have it done if that needs to be done. Cardiovascular: Patient remained in shock which is most likely secondary to acute blood loss and she is being on multiple pressors. GI: Nutrition per dietary and GI prophylaxis per routine. ICU team contacted gastroenterology operations coordinator and initially patient was supposed to have endoscopy later on today, however due to the urgency of her condition and to continue completing that was expedited and still not obvious to cause or the source of the bleeding to control it. Heme: DVT prophylaxis per routine. Patient is hemodialysis and did platelet dysfunction might be a reason also for bleeding and to be given desmopressin. I have discussed with the glassware maker and we both agreed since she has received significant amount of blood transfusion and is still showing evidence of bleeding and not been able to control the source of the bleeding then patient to be transferred to [place] and patient herself is requesting to go to [place]. This was arranged for the patient and successfully she was transferred. Interventional radiologist has evaluated patient and unfortunately they were not able to control the source of the bleeding. With her multiple comorbidities and mortality rate is high if source of bleeding does not get unde r control. Renal; urine out put and renal funtion reviewed Endorcine: blood glucose is monitored Lines: all lines checked and no evidence of infections. Patient has very good history regarding her vascular access and multiple attempts tried for having an a line to monitor her blood pressure, unfortunately they were not successful. Skin: skin care to prevent pressure ulcers per nursing routine care I spent 90 min of Critical Care time with this patient. It involved decision making of high complexity to assess, manipulate, and support vital organ system failure and/or to prevent further life threatening deterioration of the patient's condition. The time involved in the performance of separately reportable procedures was not counted toward critical care time. <Temitope Nolen - Last Filed: 09/16/18 17:07> - NOTES TO OUTPATIENT PROVIDER Notes to Outpatient Provider: . Orders not resulted at time of discharge: Pending orders 09/02/18 17:12 Legionella Antigen [RM] Stat S. Pneumoniae Antigen [RM] Stat 09/08/18 06:00 ECG 12 lead ECG [ECG] AM 0609/08/18 22:59 EKG [ECG 12 lead ECG] [ECG] Stat 09/09/18 11:00 ECG 12 lead ECG [ECG] Stat 09/16/18 08:16 Red Blood Cells [BBK] Stat Type and Screen [BBK] Stat 09/17/18 04:00 Basic Metabolic Panel AM 0400 Basic Metabolic Panel AM 0400 CBC no Diff [Complete Blood Count w/o Diff] [HEME] AM 0400 Complete Blood Count w/o Diff [HEME] AM 04009/18/18 04:00 Basic Metabolic Panel AM 0400 Basic Metabolic Panel AM 0400 CBC no Diff [Complete Blood Count w/o Diff] [HEME] AM 0400 Complete Blood Count w/o Diff [HEME] AM 04009/19/18 04:00 Basic Metabolic Panel AM 0400 Basic Metabolic Panel AM 0400 CBC no Diff [Complete Blood Count w/o Diff] [HEME] AM 0400 Complete Blood Count w/o Diff [HEME] AM 04009/20/18 04:00 Basic Metabolic Panel AM 0400 CBC no Diff [Complete Blood Count w/o Diff] [HEME] AM 04009/21/18 04:00 Basic Metabolic Panel AM 0400 CBC no Diff [Complete Blood Count w/o Diff] [HEME] AM 04009/22/18 04:00 Basic Metabolic Panel AM 0400 CBC no Diff [Complete Blood Count w/o Diff] [HEME] AM 0400 Date of Encounter: 09/16/18 Time of Encounter: 13:15 - Discharge Diagnosis (1) Hypotension Priority: Primary Status: Acute Qualifiers: Hypotension type: unspecified hypotension type Qualified Code(s): I95.9 - Hypotension, unspecified (2) Anemia Priority: Primary Status: Acute Qualifiers: Anemia type: other cause Other causes of anemia: other cause, not classified Qualified Code(s): D64.89 - Other specified anemias Code(s): D64.9 - Anemia, unspecified SNOMED Code(s): 656933415 (3) ESRD on hemodialysis Priority: Secondary Status: Chronic Code(s): N18.6 - End stage renal disease; Z99.2 - Dependence on renal dialysis SNOMED Code(s): 963846451 (4) CAD (coronary artery disease) Priority: Secondary Status: Chronic Qualifiers: Coronary Disease-Associated Artery/Lesion type: [place] artery [place] vs. transplanted heart: [place] heart Associated angina: with stable angina Qualified Code(s): I25.118 - Atherosclerotic heart disease of [place] coronary artery with other forms of angina pectoris Code(s): I25.10 - Atherosclerotic heart disease of [place] coronary artery without angina pectoris SNOMED Code(s): 91084393 Procedures and tests throughout hospitalization: . Labs on day of discharge: Labs from last 24 hours 09/16/18 09/16/18 09/16/18 12:46 08:16 06:48 WBC RBC Hgb 9.9 L D 6.3 L Hct 30.2 L 19.2 L MCV MCH MCHC RDW Plt Count MPV Sodium Potassium Chloride Carbon Dioxide BUN Creatinine Est GFR ( Amer) Est GFR (Non-Af Amer) BUN/Creatinine Ratio Glucose POC Glucose Calculated Osmolality Lactic Acid Calcium Magnesium Blood Type O POSITIVE Antibody Screen NEGATIVE Crossmatch See Detail 09/16/18 09/16/18 09/16/18 01:30 01:30 01:30 WBC 10.1 RBC 2.01 L Hgb 6.1 L Hct 18.2 L MCV 90.5 MCH 30.3 MCHC 33.5 RDW 16.5 H Plt Count 145 MPV 11.4 Sodium 136 Potassium 5.7 H Chloride 104 Carbon Dioxide 26 BUN 84 H Creatinine 5.66 H Est GFR ( Amer) 9 L Est GFR (Non-Af Amer) 7 L BUN/Creatinine Ratio 15 Glucose 168 H POC Glucose Calculated Osmolality 311 H Lactic Acid Calcium 6.5 L Magnesium 1.7 Blood Type Antibody Screen Crossmatch 09/15/18 09/15/18 09/15/18 22:45 21:35 20:04 WBC 11.9 H RBC 2.52 L Hgb 7.5 L Hct 22.7 L MCV 90.1 MCH 29.8 MCHC 33.0 RDW 16.2 H Plt Count 151 MPV 11.6 Sodium Potassium Chloride Carbon Dioxide BUN Creatinine Est GFR ( Amer) Est GFR (Non-Af Amer) BUN/Creatinine Ratio Glucose POC Glucose 167 H Calculated Osmolality Lactic Acid 0.6 Calcium Magnesium Blood Type Antibody Screen Crossmatch 09/15/18 09/12/18 06:26 08:40 WBC RBC Hgb Hct MCV MCH MCHC RDW Plt Count MPV Sodium Potassium Chloride Carbon Dioxide BUN Creatinine Est GFR ( Amer) Est GFR (Non-Af Amer) BUN/Creatinine Ratio Glucose POC Glucose 224 H Calculated Osmolality Lactic Acid Calcium Magnesium Blood Type O POSITIVE Antibody Screen NEGATIVE Crossmatch See Detail - Impressions ITS Impressions Chest X-Ray 09/02/18 13:30 IMPRESSION: 1. Developing focal opacity in the right mid lung. 2. Persistently enlarged cardiac silhouette. D/ / Blake Sprague MD / Blake Sprague MD Interpreting Provider: Blake Sprague MD Echocardiogram 09/03/18 08:14 Impressions: LVEF 50-55%. Mild segmental left ventricular systolic dysfunction. Mild concentric left ventricular hypertrophy. Moderate left ventricular diastolic dysfunction. Moderately dilated left atrium. Mildly dilated right ventricle with normal function. Mild mitral regurgitation. Mild tricuspid regurgitation. No pulmonary hypertension. Left Ventricular Wall Motion: Rest Echo Findings The apex and apical lateral tobin were hypokinetic. All other wall segments showed normal motion. Findings: Study Quality * Technically sub-optimal due to clinical status. ECG Findings * Sinus rhythm with PVCs, BBB. Left Ventricle * LVEF 50-55%. * Normal LV chamber size. * Mild concentric left ventricular hypertrophy. * Mild segmental left ventricular systolic dysfunction. * Moderate left ventricular diastolic dysfunction. * There is no LV thrombus. * Atypical septal motion consistent with bundle branch block. Right Ventricle * Mildly dilated right ventricle with normal function. Left Atrium * Moderately dilated left atrium. Right Atrium * Normal right atrial size. Interatrial Septum * Interatrial septum not well evaluated. Aortic Valve * Moderately calcified aortic valve leaflets. * No aortic regurgitation. * No aortic stenosis. Mitral Valve * Moderate mitral annular calcification * Mildly calcified mitral valve leaflets. * Mild mitral regurgitation. * No mitral stenosis. Tricuspid Valve * Normal tricuspid valve structure. * No tricuspid stenosis. * Mild tricuspid regurgitation. * Estimated RVSP is 26 mmHg. * Estimated RA pressure is 8 mmHg. * No pulmonary hypertension. Pulmonic Valve * Pulmonic valve is not well visualized. * No pulmonic stenosis. * No pulmonic regurgitation. Aorta * Normally sized aortic root. Pericardium * The pericardium appears normal. IVC * The IVC is dilated. * > 50% respiratory change Abdomen/Pelvis CT 09/08/18 08:36 IMPRESSION: 1. Postprocedural changes within the right groin and medial right thigh with subcutaneous soft tissue stranding and skin thickening with a more focal 3.5 x 1.3 cm hematoma. 2. Similar-appearing stranding and skin thickening within the right lower quadrant in the right anterior pelvis similar in appearance to prior exam surrounding the hernia sac. Recommend correlation with any signs of infection or cellulitis. 3. No retroperitoneal hematoma. 4. Extensive vascular calcifications. Stable 1.0 cm splenic artery aneurysm. D/ / 09/08/2018 09:43:26 Tricia Thacker MD / [facility] Interpreting Provider: Tricia Thacker MD Abdomen/Pelvis CT 09/13/18 05:56 IMPRESSION: 1. Unchanged incompletely imaged small to moderate hematoma within the right groin. 2. Worsening trace right pleural effusion. D/ / Sundeep Luis MD / Sundeep Luis MD Interpreting Provider: Sundeep Luis MD Guidance Ultrasound 09/15/18 00:00 IMPRESSION: Ultrasound-guided placement of a nontunneled central line. No immediate complications. D/ / 09/15/2018 16:50:09 Joaquín Lin MD / [facility] Interpreting Provider: Joaquín Lin MD Insertion Non-Tunneled Catheter 09/15/18 14:16 IMPRESSION: Ultrasound-guided placement of a nontunneled central line. No immediate complications. D/ / 09/15/2018 16:50:09 Joaquín Lin MD / johnathan Interpreting Provider: Joaquín Lin MD Bleed Scan Nuclear Medicine 09/15/18 15:27 IMPRESSION: Severely limited exam due to patient motion due to discomfort and termination at the initial 20 minutes with a 14 hour delayed image. There is active GI hemorrhage with blood throughout the colon on the late image. Consideration of CT abdomen/pelvis with/without contrast GI bleed protocol is recommended to try to identify the location of the active hemorrhage. Results of the examination were discussed with ICU resident Analilia Nolen on 09/16/2018 at 8:30 a.m. D/ / 09/16/2018 08:39:21 [facility] MD [facility] Interpreting Provider: Ancelmo Beecrra MD Chest X-Ray 09/15/18 16:28 IMPRESSION: Placement of right IJ central venous catheter with tip in distal SVC. No pneumothorax. Marked interval improvement to previously noted airspace opacities to the right lung with still some minimal linear opacity persisting to the right mid lung zone which may be on the basis of postinflammatory scarring, resolving infiltrate or some mild atelectasis. D/ / 09/15/2018 17:34:13 Morgan Sanford MD / johnathan Interpreting Provider: Morgan Sanford MD Abdomen/Pelvis CT 09/16/18 08:20 IMPRESSION: 1. No acute infective or inflammatory process. 2. No bowel obstruction or evidence for acute process in the GI tract although evaluation limited in the absence of both IV and oral contrast. 3. Small right groin hematoma unchanged. 4. Redemonstration of ventral lower abdomen hernia within large abdominal pannus containing nonobstructed small bowel. D/ / Freeman Peoples MD / Freeman Peoples MD Interpreting Provider: Freeman Peoples MD Date of admission: 09/03/18 13:06 Primary care physician: Cecy Valdez MD Consults: 09/02/18 17:15 Consult to Nephrology [CONS] Routine Consulting Provider: Kidney Angelica/ADRIAN/PIERRE/TEJAS Reason for Consult: Pt is on HD Call Completed: Yes 09/02/18 17:46 Consult to Cardiology [CONS] Routine Comment: Consulting Provider: Cardiology Angelica Reason for Consult: Undetermined irregular heart rhythm Call Completed: No 09/03/18 08:11 Consult to Nurse Navigator [CONS] Routine Comment: hd, pn 09/04/18 10:15 Consult to Dialysis [CONS] ONCE 09/07/18 14:44 Consult to Cardiac Rehabilitation-Phase1 [CONS] Routine Comment: Reason for Consult: post op PCI Call Completed: Yes 09/08/18 15:04 Consult to Vascular Surgery [CONS] Stat Consulting Provider: Vascular Surgery Angelica Reason for Consult: right groin hematoma/ acute anemia Call Completed: Yes 09/08/18 16:45 Consult to Dialysis [CONS] ONCE 09/10/18 07:15 Consult to Dialysis [CONS] ONCE 09/10/18 11:17 Consult to Gastroenterology [CONS] Routine Consulting Provider: Gastroenterology [place] Reason for Consult: acute blood loss anemia requiring 5u prbcs following heart cath and initiation of dual antiplatelet therapy. Does have R thigh hematoma but does not explain degree of blood loss, and RN reports dark tarry stools Call Completed: Yes 09/12/18 10:45 Consult to Dialysis [CONS] ONCE 09/13/18 14:20 Consult to Wound Care [CONS] Routine Reason for Consult: skin breakdown at site of heart cath R groin Call Completed: No 09/14/18 10:00 Consult to Dialysis [CONS] ONCE 09/16/18 07:14 Consult to Pulmonology [CONS] Routine Consulting Provider: Pulm Crit Care [facility] Sleep Angelica Reason for Consult: Hemodynamically unstable in the setting of active lower GI bleed on pressor support. Call Completed: Yes Discharging clinician: Temitope Nolen Anticipated date of discharge: 09/16/18 - Patient Status Functional capacity at discharge: bed bound Overall status at discharge: patient is not back to baseline - Diet and Activity Activity: as per physical therapy, wear oxygen at all times Diet: diabetic diet, low fat, low cholesterol, low salt diet - Hospital Course Hospital course: Ms. Richey is a 72 year old female with history of COPD, congestive heart failure, end-stage renal disease on hemodialysis, insulin-dependent diabetes mellitus type 2, hypertension, morbid obesity presented to the ER with admission on 09/02/2018 for shortness of breath and chest pain. Patient was found to be hypoxic, with a leukocytosis and a chest x-ray showing right middle lobe opacification. There is also an elevation of troponin. Blood cultures were performed which is been negative growth to date. Patient finished course of Rocephin as well as azithromycin for concern of HCAP. Patient COPD exacerbation was resolved with prednisone course. On 09/07 patient went underwent left heart catheter with stent placed to the proximal RCA with complications of groin hematoma without retroperitoneal bleed. Ultrasound was performed which showed no pseudoaneurysm. Patient was placed on aspirin, Plavix and Lipitor, metoprolol. Over the course of her stay, patient developed anemia, with suspected upper GI bleed. Patient did develop melena on DAPT. Patient underwent EGD on 09/14/2018 which showed a large for similar gastric ulcer that was not bleeding. Colonoscopy was performed which showed no acute bleed. As patient continued to have melena and became hypotensive, patient was transferred to the ICU. IR did place a right internal jugular central line. Patient was started on Levophed and vasopressin, is patient's map continued to decline, patient was placed on phenylephrine. Was also started on desmopressin. GI bleeding study was performed on 09/16/2018 which was indeterminate for site of bleeding. Since 09/08/2018 the patient has received total of 17 units of PRBCs. Push enteroscopy was performed on 09/16/2018 which shows no upper GI bleed, continued ulcer that was not bleeding. CT of the abdomen and pelvis with and without contrast, GI study, shows blood within the descending colon, however there is no extravasation or origin site for bleed. Following discussion with the patient as well as GI consult, feels the patient would be best suited for transfer to [facility] as bleed source is still been unidentified at time of transfer, patient is alert and oriented 3, she understands and agrees with transfer, following the last 2 units of PRBCs that were delivered today, patient's repeat hemoglobin is 9.9, vital signs have been steady, with map of 84. Patient has been accepted to [facility] for MICU at [facility]. While patient is waiting for transfer, if she declines or is unable to protect her airway, patient will be intubated prior to transfer. However at this point in time, I feel as though this is low likelihood, she is conversant with appropriate aeration. - Time Spent with Patient Total time spent providing and/or coordinating discharge services: Greater than 30 minutes Physical Examination Vital Signs: Vital Signs, Last 4 Hours Temp Pulse Resp BP Pulse Ox 09/16/18 12:17 98.7 F 112 16 136/59 95 09/16/18 12:00 110 19 136/59 94 09/16/18 10:59 98.1 F 112 22 84/39 100 09/16/18 10:05 115 22 95/16 100 09/16/18 10:04 108 14 76/50 100 09/16/18 09:50 98.8 F 118 22 66/43 100 . General appearance: alert, appears uncomfortable Eyes: nonicteric ENT: oropharynx dry Neck: supple, no lymphadenopathy Effort: normal Inspection: normal Auscultation: bilateral: diminished breath sounds Cardiovascular: other (tachycardic, regular rhythm) Gastrointestinal: normoactive bowel sounds, tender (diffusely throughout the abdomen without guarding or rebound) Integumentary: other (pallor, fistual with bruit to the left upper arm, central line to the right IJ) Extremities: no cyanosis, no clubbing, pulses normal Musculoskeletal: no deformities normal mental status, non-focal exam mood appropriate, affect normal . - Stroke Reason for No Antithrombin at DC: Medical contraindication Reason for No Anticoagulant at DC: Not Indicated - Due to Bleeding Disorder or Risk of Bleeding Contraindication Not Initiating IV-Tpa: Not Indicated - NIHSS Score of "Zero" Contraindication No Statin at DC: Not Indicated - Due to Bleeding Disorder or Risk of Bleeding - VTE Reasons for not Prescribing Prophylaxis: Medical contraindication Documentation of Mechanical Device: Intermittent pneumatic compression device Contraindication No Overlap Therapy: Medical contraindication Deep Vein Thrombosis/Pulmonary Embolism Present on Admission: No - AMI Reason for No Aspirin at Discharge: Medical contraindication Reason for No Statin at DC: Not Indicated - Due to Bleeding Disorder or Risk of Bleeding
[2018-09-16] MEDS ORDERED: *HR* Etomidate 40 MG/20 ML VIAL IVP ONE (13:37)
[2018-09-16 14:57] VITALS: BP 121/63
[2018-09-16] MEDS ORDERED: *HR* FentaNYL (PF) 100 MCG/2 ML VIAL IVP ONE (15:00)
--- NOTE | 2018-09-16 22:39 | Nephrology Progress Note ---
Date of Encounter: 09/16/18 Time of Encounter: 12:00 - Assessment and Plan (1) Dyspnea Status: Acute Qualifiers: Dyspnea type: dyspnea on exertion Qualified Code(s): R06.09 - Other forms of dyspnea (2) Anemia Status: Acute Qualifiers: Anemia type: other cause Other causes of anemia: other cause, not classified Qualified Code(s): D64.89 - Other specified anemias (3) End stage renal disease Status: Chronic (4) Anuria Status: Chronic Subjective Principal diagnosis: Pneumonia; elevated troponin Interval history: Intreim events noted, pt seen and examined sitting up in chair with no new complaints. at chairside Objective - Vital Signs Vital signs: Vital Signs Temp Pulse Resp BP Pulse Ox 09/16/18 14:00 122 20 121/63 99 09/16/18 13:00 123 23 91/73 99 09/16/18 12:17 98.7 F 112 16 136/59 95 09/16/18 12:00 115 19 136/59 94 09/16/18 10:59 98.1 F 112 22 84/39 100 09/16/18 10:05 115 22 95/16 100 09/16/18 10:04 108 14 76/50 100 09/16/18 09:50 98.8 F 118 22 66/43 100 09/16/18 09:00 108 14 76/50 100 09/16/18 08:00 108 16 89/26 100 09/16/18 07:30 98.7 F 09/16/18 07:24 18 99 09/16/18 07:00 108 19 92/48 99 09/16/18 06:00 108 18 76/29 100 09/16/18 05:00 117 20 113/52 100 09/16/18 04:00 101 20 84/23 100 09/16/18 03:07 103 09/16/18 03:00 106 22 83/43 100 09/16/18 02:00 107 18 90/76 100 09/16/18 01:00 88 23 86/39 100 09/16/18 00:00 87 23 55/26 100 09/15/18 23:49 87 09/15/18 23:41 98.1 F 09/15/18 23:00 88 21 73/46 100 Intake and Output 09/16/18 09/16/18 09/16/18 07:59 15:59 23:59 Intake Total 254.0 / 1750.05 1496.05 / 1750.05 Output Total 0 / 0 0 / 0 Balance 254.0 / 1750.05 1496.05 / 1750.05 Intake: IV Fluids 254.0 / 1100.05 846.05 / 1100.05 Levophed 4 MG In Dextrose 5% 254.0 / 254.0 250 ML @ 8 MCG/MIN 30.48 mls/hr IVC CONT JASS Rx#:[id number] Levophed 16 MG In Dextrose 5% 532 / 532 500 ML @ 8 MCG/MIN 15.48 mls/hr IVC CONT JASS Rx#:[id number] Phenylephrine 50 MG In Dextrose 255 / 255 5% 250 ML @ 100 MCG/MIN 30.6 mls/hr IVC CONT JASS Rx#: [id number] Ddavp 36.2 Mcg In 0.9 % Sodium 59.05 / 59.05 Chloride 50 ML @ 100 mls/hr IVPB ONCE JASS Rx#:[id number] Oral 0 / 0 0 / 0 Blood Product 650 / 650 Rbcs Leuko Poor As-1 Unit 350 / 350 [id number] Rbcs Leuko Poor As-1 Unit 300 / 300 [id number] Output: Urine 0 / 0 0 / 0 Other: Stool Size Small Stool Consistency liquid Stool Color Dark Red Blood # Bowel Movements 3 - Lab 09/16/18 12:46 09/16/18 01:30 - Stroke Reason for No Antithrombin at DC: Medical contraindication Reason for No Anticoagulant at DC: Not Indicated - Due to Bleeding Disorder or Risk of Bleeding Contraindication Not Initiating IV-Tpa: Not Indicated - NIHSS Score of "Zero" Contraindication No Statin at DC: Not Indicated - Due to Bleeding Disorder or Risk of Bleeding - VTE Reasons for not Prescribing Prophylaxis: Medical contraindication Documentation of Mechanical Device: Intermittent pneumatic compression device Contraindication No Overlap Therapy: Medical contraindication Deep Vein Thrombosis/Pulmonary Embolism Present on Admission: No - AMI Reason for No Aspirin at Discharge: Medical contraindication Reason for No Statin at DC: Not Indicated - Due to Bleeding Disorder or Risk of Bleeding Consult Discharge Plan - Plan Referrals: Kenrick Pardo, GEAR INSPECTOR [Advanced Practice Nurse] - (per the office they will call the patient at home with a follow up appointment) Cecy Valdez MD [Primary Care Provider] - 09/21/18 11:45 am ()
== END 2018-09-16 15:30 | disposition other institution (70) | DRG 246 ==
LOC: EMEROOARM 13:01 → 2ANU 13:01 → SUATTDRO 16:07 → 2ANU 17:46 → SUATTDRO 09-03 13:06 → 2NNU 09-08 16:41 → ICNU 09-15 17:45
PROVIDERS: ADMIT Student in an Organized Health Care Education/Training Program; ATTEND Hospitalist

== ENCOUNTER 2021-02-26 05:49 | Inpatient (IN) ==
[2021-02-26] MEDS ORDERED: 0.9 % Sodium Chloride 1,000 ML IV ONE (06:50)
[2021-02-26 08:27] LABS: Eosinophils % 0.5 %; Immature Granulocytes % 0.8 % (0-4); Lymphocytes % 4.2 %; Segmented Neutrophils % 91.2 %
[2021-02-26 08:28] LABS: Basophils % 0.2 %; Eosinophils # 0.1 K/mcL (0.0-0.6); Hematocrit 35.3 % (35.3-44.9); Hemoglobin 10.3 g/dL (11.5-15.4); Lymphocytes # 0.5 K/mcL (0.6-4.6); Mean Corpuscular HGB Conc 29.2 g/dL (31.6-35.5); Mean Corpuscular Hemoglobin 30.9 pg (28.0-33.3); Mean Platelet Volume 10.2 fL (9.4-12.4); Monocytes # 0.4 K/mcL (0.0-1.3); Monocytes % 3.1 %; Neutrophils # 10.5 K/mcL (1.6-8.9); Platelet Count 307 K/mcL (140-400); Red Blood Count 3.33 M/mcL (3.82-4.97); Red Cell Distribution Width 14.7 % (11.5-14.5); White Blood Count 11.5 K/mcL (4.3-11.1)
[2021-02-26 08:36] LABS: Albumin 3.5 g/dL (3.5-5.7); Bilirubin,Total 0.3 mg/dL (0.3-1.0); Calcium 9.5 mg/dL (8.6-10.3); Globulin 3.5 g/dL (2.4-3.5); Magnesium 2.3 mg/dL (1.6-2.6); Potassium 4.8 mEq/L (3.5-5.1)
[2021-02-26 08:45] LABS: Anisocytosis 1+ (Not Present); Platelet Estimate Normal (Normal)
[2021-02-26] MEDS ORDERED: Dextrose Gel 15 GM/37.5 ML TUBE PO PRN ×2 (11:41)
[2021-02-26] MEDS ORDERED: D5% in Water 1,000 ML IVC PRN ×3 (11:41→23:04)
[2021-02-26] MEDS ORDERED: *HR* Dextrose 50 % in Water (Syg) 50 ML SYRINGE ONE (11:44)
[2021-02-26] MEDS: *HR* Dextrose 50 % in Water (Syg) 50 ML SYRINGE IVP PRN ×4 (11:48→21:31)
[2021-02-26] MEDS ORDERED: Melatonin 3 MG TABLET PO PRN (11:52)
[2021-02-26] MEDS: Calcium Acetate 667 MG CAPSULE PO SCH ×2 (12:54→16:51)
[2021-02-26] MEDS: Budesonide/Formoterol 80/4.5 1 PUFF INH IH SCH ×2 (15:36→21:21)
[2021-02-26] MEDS ORDERED: 0.9 % Sodium Chloride 250 ML IVC PRN (15:50)
[2021-02-26] MEDS ORDERED: 0.9 % Sodium Chloride 1,000 ML PRIME SCH (16:00)
[2021-02-26] MEDS: Aspirin Enteric Coated 81 MG Tablet PO SCH (16:51)
[2021-02-26] MEDS: *HR* Heparin 5,000 UNIT/ML VIAL SQ SCH (16:51)
[2021-02-26] MEDS: Famotidine 20 MG TABLET PO SCH (16:52)
[2021-02-26 17:02] LABS: Folate 20.7 ng/mL (3.0-16.0)
[2021-02-26 17:05] LABS: Hepatitis B Surface Antibody 72.31 mIU/mL
[2021-02-26 17:16] LABS: Hepatitis B Surface Antigen Nonreactive (Nonreactive)
[2021-02-26] MEDS: Acetaminophen 325 MG TABLET PO PRN (18:33)
[2021-02-27] MEDS ORDERED: D10% in Water 500 ML IVC SCH (00:30)
[2021-02-27 00:43] LABS: Mean Corpuscular Hemoglobin 30.2 pg (28.0-33.3); Mean Corpuscular Volume 100.7 fL (83.0-100.0); Mean Platelet Volume 10.7 fL (9.4-12.4); Platelet Count 269 K/mcL (140-400); Red Blood Count 2.88 M/mcL (3.82-4.97); Red Cell Distribution Width 14.8 % (11.5-14.5); White Blood Count 13.5 K/mcL (4.3-11.1)
[2021-02-27 00:44] LABS: Hemoglobin 8.7 g/dL (11.5-15.4)
[2021-02-27] MEDS: *HR* Dextrose 50 % in Water (Syg) 50 ML SYRINGE IVP PRN (00:48)
[2021-02-27 02:54] LABS: Calcium 8.4 mg/dL (8.6-10.3); Magnesium 2.1 mg/dL (1.6-2.6); Phosphorous 3.9 mg/dL (2.7-4.5); Potassium 5.8 mEq/L (3.5-5.1)
[2021-02-27] MEDS: *HR* Heparin 5,000 UNIT/ML VIAL SQ SCH ×2 (06:13→16:58)
[2021-02-27] MEDS: D10% in Water 500 ML IVC SCH ×5 (06:13→23:53)
[2021-02-27] MEDS: Calcium Acetate 667 MG CAPSULE PO SCH ×3 (07:16→16:57)
[2021-02-27] MEDS ORDERED: 0.9 % Sodium Chloride 250 ML IVC PRN (08:13)
[2021-02-27] MEDS: Budesonide/Formoterol 80/4.5 1 PUFF INH IH SCH ×2 (08:56→20:54)
[2021-02-27] MEDS ORDERED: Levothyroxine 25 MCG TABLET PO SCH (09:00)
[2021-02-27 09:24] LABS: Calcium 8.4 mg/dL (8.6-10.3); Potassium 5.3 mEq/L (3.5-5.1)
[2021-02-27 09:56] LABS: Estimated Average Glucose 131 mg/dl; Hemoglobin A1C 6.2 %
[2021-02-27 14:51] LABS: Hematocrit 30.1 % (35.3-44.9)
[2021-02-27 15:45] LABS: Calcium 8.4 mg/dL (8.6-10.3)
[2021-02-27] MEDS: Aspirin Enteric Coated 81 MG Tablet PO SCH (16:57)
[2021-02-27 18:39] LABS: Calcium 8.1 mg/dL (8.6-10.3); Potassium 3.9 mEq/L (3.5-5.1)
[2021-02-27] MEDS: Acetaminophen 325 MG TABLET PO PRN (23:02)
[2021-02-28] MEDS ORDERED: D10% in Water 500 ML IVC SCH ×2 (00:32→05:48)
[2021-02-28] MEDS: *HR* Heparin 5,000 UNIT/ML VIAL SQ SCH ×2 (05:10→17:08)
[2021-02-28] MEDS: Acetaminophen 325 MG TABLET PO PRN (05:11)
[2021-02-28] MEDS: Ondansetron 4 MG/2 ML VIAL IVP PRN (05:11)
[2021-02-28 05:31] LABS: Hematocrit 28.5 % (35.3-44.9); Hemoglobin 8.8 g/dL (11.5-15.4); Mean Corpuscular HGB Conc 30.9 g/dL (31.6-35.5); Mean Corpuscular Volume 100.4 fL (83.0-100.0); Mean Platelet Volume 9.8 fL (9.4-12.4); Platelet Count 283 K/mcL (140-400); Red Blood Count 2.84 M/mcL (3.82-4.97); Red Cell Distribution Width 14.4 % (11.5-14.5); White Blood Count 13.2 K/mcL (4.3-11.1)
[2021-02-28 05:56] LABS: Calcium 8.2 mg/dL (8.6-10.3); Magnesium 1.7 mg/dL (1.6-2.6); Phosphorous 3.1 mg/dL (2.7-4.5); Potassium 4.1 mEq/L (3.5-5.1)
[2021-02-28] MEDS: Levothyroxine 25 MCG TABLET PO SCH (06:49)
[2021-02-28] MEDS: Budesonide/Formoterol 80/4.5 1 PUFF INH IH SCH ×2 (07:34→20:17)
[2021-02-28] MEDS ORDERED: 0.9 % Sodium Chloride 250 ML IVC PRN (08:16)
[2021-02-28] MEDS: Famotidine 20 MG TABLET PO SCH (09:47)
[2021-02-28] MEDS: Calcium Acetate 667 MG CAPSULE PO SCH ×3 (09:48→17:07)
[2021-02-28] MEDS: Insulin LISPRO 300 UNITS/3 ML VIAL SUBQ SCH ×3 (09:52→17:08)
[2021-02-28] MEDS: D10% in Water 500 ML IVC SCH (12:01)
[2021-02-28] MEDS: Aspirin Enteric Coated 81 MG Tablet PO SCH (17:07)
[2021-02-28] MEDS: *HR* HYDROcodone/Acet 5/325 mg TABLET PO PRN (17:07)
[2021-03-01] MEDS: Insulin LISPRO 300 UNITS/3 ML VIAL SUBQ SCH ×5 (00:05→20:40)
[2021-03-01] MEDS: Acetaminophen 325 MG TABLET PO PRN (01:50)
[2021-03-01 05:06] LABS: Hematocrit 28.6 % (35.3-44.9); Hemoglobin 8.8 g/dL (11.5-15.4); Mean Corpuscular HGB Conc 30.8 g/dL (31.6-35.5); Mean Corpuscular Hemoglobin 30.6 pg (28.0-33.3); Mean Corpuscular Volume 99.3 fL (83.0-100.0); Mean Platelet Volume 9.8 fL (9.4-12.4); Platelet Count 288 K/mcL (140-400); Red Blood Count 2.88 M/mcL (3.82-4.97); Red Cell Distribution Width 13.9 % (11.5-14.5); White Blood Count 11.7 K/mcL (4.3-11.1)
[2021-03-01 05:24] LABS: Calcium 8.2 mg/dL (8.6-10.3); Magnesium 1.8 mg/dL (1.6-2.6); Phosphorous 2.5 mg/dL (2.7-4.5); Potassium 3.9 mEq/L (3.5-5.1)
[2021-03-01] MEDS: Levothyroxine 25 MCG TABLET PO SCH (05:35)
[2021-03-01] MEDS: *HR* Heparin 5,000 UNIT/ML VIAL SQ SCH ×2 (05:35→16:55)
[2021-03-01] MEDS: Calcium Acetate 667 MG CAPSULE PO SCH ×2 (07:55→11:09)
[2021-03-01] MEDS: *HR* HYDROcodone/Acet 5/325 mg TABLET PO PRN (07:55)
[2021-03-01] MEDS: Budesonide/Formoterol 80/4.5 1 PUFF INH IH SCH ×2 (08:10→20:30)
[2021-03-01] MEDS ORDERED: *HR* GlipiZIDE XL (24 HR) 2.5 MG TABLET PO SCH (09:00)
[2021-03-01] MEDS: Ondansetron 4 MG/2 ML VIAL IVP PRN (09:37)
[2021-03-01] MEDS: Aspirin Enteric Coated 81 MG Tablet PO SCH (16:55)
[2021-03-02] MEDS: *HR* HYDROcodone/Acet 5/325 mg TABLET PO PRN ×3 (00:14→23:14)
[2021-03-02] MEDS: *HR* Heparin 5,000 UNIT/ML VIAL SQ SCH ×2 (04:14→20:51)
[2021-03-02] MEDS: Levothyroxine 25 MCG TABLET PO SCH (04:15)
[2021-03-02 05:31] LABS: Hematocrit 30.3 % (35.3-44.9); Hemoglobin 9.2 g/dL (11.5-15.4); Mean Corpuscular HGB Conc 30.4 g/dL (31.6-35.5); Mean Corpuscular Hemoglobin 30.6 pg (28.0-33.3); Mean Corpuscular Volume 100.7 fL (83.0-100.0); Mean Platelet Volume 9.6 fL (9.4-12.4); Platelet Count 326 K/mcL (140-400); Red Blood Count 3.01 M/mcL (3.82-4.97); White Blood Count 9.3 K/mcL (4.3-11.1)
[2021-03-02 05:58] LABS: Calcium 8.9 mg/dL (8.6-10.3); Phosphorous 3.9 mg/dL (2.7-4.5); Potassium 4.5 mEq/L (3.5-5.1)
[2021-03-02] MEDS: Budesonide/Formoterol 80/4.5 1 PUFF INH IH SCH ×2 (07:41→21:11)
[2021-03-02] MEDS ORDERED: 0.9 % Sodium Chloride 250 ML IVC PRN ×2 (08:19→08:39)
[2021-03-02] MEDS: Famotidine 20 MG TABLET PO SCH (10:03)
[2021-03-02] MEDS: Insulin LISPRO 300 UNITS/3 ML VIAL SUBQ SCH ×4 (10:04→20:58)
[2021-03-02] MEDS: Aspirin Enteric Coated 81 MG Tablet PO SCH (20:52)
[2021-03-03] MEDS: Levothyroxine 25 MCG TABLET PO SCH (05:28)
[2021-03-03] MEDS: *HR* Heparin 5,000 UNIT/ML VIAL SQ SCH (05:28)
[2021-03-03] MEDS: Insulin LISPRO 300 UNITS/3 ML VIAL SUBQ SCH ×2 (07:56→12:09)
[2021-03-03 07:58] LABS: Calcium 8.5 mg/dL (8.6-10.3); Potassium 4.4 mEq/L (3.5-5.1)
[2021-03-03 08:01] LABS: Hematocrit 29.1 % (35.3-44.9); Mean Corpuscular HGB Conc 30.9 g/dL (31.6-35.5); Mean Corpuscular Hemoglobin 30.4 pg (28.0-33.3); Mean Corpuscular Volume 98.3 fL (83.0-100.0); Mean Platelet Volume 9.8 fL (9.4-12.4); Platelet Count 293 K/mcL (140-400); Red Blood Count 2.96 M/mcL (3.82-4.97); White Blood Count 8.8 K/mcL (4.3-11.1)
[2021-03-03] MEDS: *HR* HYDROcodone/Acet 5/325 mg TABLET PO PRN (08:05)
[2021-03-03] MEDS: Budesonide/Formoterol 80/4.5 1 PUFF INH IH SCH (09:01)
[2021-03-03 11:23] VITALS: BP 134/59; PULSE 76; TEMP 98.8; O2SAT 96
== END 2021-03-03 15:26 | DRG 637 ==
LOC: EMEROOARM 05:49 → 2ANU 05:49 → SUATTDRO 10:01 → 2ANU 11:00 → SUATTDRO 02-27 11:14
PROVIDERS: ADMIT Internal Medicine; ATTEND Hospitalist

== ENCOUNTER 2021-03-08 15:18 | Inpatient (IN) ==
[2021-03-08 18:10] LABS: Hematocrit 27.9 % (35.3-44.9); Hemoglobin 8.3 g/dL (11.5-15.4); Mean Corpuscular HGB Conc 29.7 g/dL (31.6-35.5); Mean Corpuscular Hemoglobin 30.6 pg (28.0-33.3); Mean Platelet Volume 10.2 fL (9.4-12.4); Platelet Count 361 K/mcL (140-400); Red Blood Count 2.71 M/mcL (3.82-4.97); Red Cell Distribution Width 14.4 % (11.5-14.5); White Blood Count 10.2 K/mcL (4.3-11.1)
[2021-03-08 18:32] LABS: Calcium 8.7 mg/dL (8.6-10.3); Potassium 5.5 mEq/L (3.5-5.1)
[2021-03-08] MEDS ORDERED: Isovue-370 500 ML BOTTLE IVP ONE (18:40)
[2021-03-08] MEDS ORDERED: Naloxone 0.4 MG/ML INJ IVP PRN (21:31)
[2021-03-08] MEDS ORDERED: D5% in Water 1,000 ML IVC PRN (23:31)
[2021-03-08] MEDS ORDERED: *HR* Dextrose 50 % in Water (Syg) 50 ML SYRINGE IVP PRN (23:31)
[2021-03-08] MEDS ORDERED: Dextrose Gel 15 GM/37.5 ML TUBE PO PRN ×2 (23:31)
[2021-03-08] MEDS: Melatonin 3 MG TABLET PO PRN (23:52)
[2021-03-08] MEDS: *HR* HYDROcodone/Acet 5/325 mg TABLET PO PRN (23:52)
[2021-03-09 02:03] LABS: Magnesium 1.9 mg/dL (1.6-2.6); Phosphorous 5.3 mg/dL (2.7-4.5)
[2021-03-09] MEDS: *HR* Heparin 5,000 UNIT/ML VIAL SQ SCH ×4 (04:53→20:14)
[2021-03-09] MEDS: Budesonide/Formoterol 160/4.5 1 PUFF INH IH SCH ×2 (07:51→19:53)
[2021-03-09] MEDS: Calcium Acetate 667 MG CAPSULE PO SCH ×3 (08:23→19:27)
[2021-03-09] MEDS: Fluticasone Propionate Nasal 50 MCG/SPRAY BOTTLE NS SCH ×2 (08:40→20:15)
[2021-03-09] MEDS: Prenatal Vit/FA 1 EACH TABLET PO SCH (08:44)
[2021-03-09] MEDS: Insulin LISPRO 300 UNITS/3 ML VIAL SUBQ SCH ×4 (08:52→20:14)
[2021-03-09] MEDS ORDERED: 0.9 % Sodium Chloride 250 ML IVC PRN (08:53)
[2021-03-09] MEDS ORDERED: Levothyroxine 25 MCG TABLET PO SCH (09:00)
[2021-03-09] MEDS: Aspirin Enteric Coated 81 MG Tablet PO SCH (19:27)
[2021-03-09] MEDS: Gabapentin 100 MG CAPSULE PO SCH (20:13)
[2021-03-09] MEDS: *HR* HYDROcodone/Acet 5/325 mg TABLET PO PRN (22:54)
[2021-03-09] MEDS: Melatonin 3 MG TABLET PO PRN (22:54)
[2021-03-10 00:50] LABS: Hematocrit 25.2 % (35.3-44.9); Hemoglobin 7.5 g/dL (11.5-15.4); Mean Corpuscular HGB Conc 29.8 g/dL (31.6-35.5); Mean Corpuscular Volume 100.8 fL (83.0-100.0); Platelet Count 322 K/mcL (140-400); Red Cell Distribution Width 14.2 % (11.5-14.5)
[2021-03-10 01:06] LABS: Calcium 8.2 mg/dL (8.6-10.3); Potassium 4.2 mEq/L (3.5-5.1)
[2021-03-10] MEDS: *HR* Heparin 5,000 UNIT/ML VIAL SQ SCH ×3 (05:18→21:10)
[2021-03-10] MEDS: Levothyroxine 25 MCG TABLET PO SCH (05:18)
[2021-03-10] MEDS: Budesonide/Formoterol 160/4.5 1 PUFF INH IH SCH ×2 (07:55→20:23)
[2021-03-10] MEDS: Prenatal Vit/FA 1 EACH TABLET PO SCH (08:49)
[2021-03-10] MEDS: Calcium Acetate 667 MG CAPSULE PO SCH ×3 (08:49→16:52)
[2021-03-10] MEDS: Fluticasone Propionate Nasal 50 MCG/SPRAY BOTTLE NS SCH ×2 (08:51→21:13)
[2021-03-10] MEDS: Insulin LISPRO 300 UNITS/3 ML VIAL SUBQ SCH ×4 (08:52→21:14)
[2021-03-10] MEDS: Aspirin Enteric Coated 81 MG Tablet PO SCH (16:52)
[2021-03-10] MEDS: Gabapentin 100 MG CAPSULE PO SCH (21:12)
[2021-03-10] MEDS ORDERED: NON-FORMULARY MEDICATION 1 EACH EACH (Alendronate Sodium [Fosamax] 35 MG Tablet) PO SCH (23:20)
[2021-03-10] MEDS: *HR* HYDROcodone/Acet 5/325 mg TABLET PO PRN (23:45)
[2021-03-10] MEDS: Melatonin 3 MG TABLET PO PRN (23:45)
[2021-03-11] MEDS: *HR* Heparin 5,000 UNIT/ML VIAL SQ SCH ×3 (06:22→21:27)
[2021-03-11] MEDS: Levothyroxine 25 MCG TABLET PO SCH (06:23)
[2021-03-11] MEDS: Budesonide/Formoterol 160/4.5 1 PUFF INH IH SCH ×2 (07:32→19:56)
[2021-03-11] MEDS: Insulin LISPRO 300 UNITS/3 ML VIAL SUBQ SCH ×4 (08:41→21:30)
[2021-03-11 09:06] LABS: Basophils % 0.4 %; Eosinophils # 0.1 K/mcL (0.0-0.6); Eosinophils % 1.8 %; Hematocrit 27.4 % (35.3-44.9); Immature Granulocytes % 0.3 % (0-4); Lymphocytes # 1.2 K/mcL (0.6-4.6); Mean Corpuscular HGB Conc 29.2 g/dL (31.6-35.5); Mean Corpuscular Hemoglobin 30.1 pg (28.0-33.3); Mean Platelet Volume 10.1 fL (9.4-12.4); Monocytes # 0.4 K/mcL (0.0-1.3); Monocytes % 6.1 %; Neutrophils # 4.9 K/mcL (1.6-8.9); Platelet Count 306 K/mcL (140-400); Red Blood Count 2.66 M/mcL (3.82-4.97); Red Cell Distribution Width 14.1 % (11.5-14.5); Segmented Neutrophils % 73.4 %; White Blood Count 6.7 K/mcL (4.3-11.1)
[2021-03-11] MEDS: Prenatal Vit/FA 1 EACH TABLET PO SCH (09:28)
[2021-03-11] MEDS: Calcium Acetate 667 MG CAPSULE PO SCH ×3 (09:28→17:18)
[2021-03-11] MEDS: Fluticasone Propionate Nasal 50 MCG/SPRAY BOTTLE NS SCH ×2 (09:29→21:26)
[2021-03-11] MEDS ORDERED: Ondansetron 4 MG/2 ML VIAL IVP PRN (09:59)
[2021-03-11] MEDS: Aspirin Enteric Coated 81 MG Tablet PO SCH (17:18)
[2021-03-11] MEDS: Gabapentin 100 MG CAPSULE PO SCH (21:28)
[2021-03-11] MEDS: *HR* HYDROcodone/Acet 5/325 mg TABLET PO PRN (23:23)
[2021-03-11] MEDS: Melatonin 3 MG TABLET PO PRN (23:23)
[2021-03-12 01:41] LABS: Calcium 8.9 mg/dL (8.6-10.3); Phosphorous 5.3 mg/dL (2.7-4.5); Potassium 5.4 mEq/L (3.5-5.1)
[2021-03-12] MEDS: Levothyroxine 25 MCG TABLET PO SCH (05:52)
[2021-03-12] MEDS: *HR* Heparin 5,000 UNIT/ML VIAL SQ SCH ×3 (05:53→21:31)
[2021-03-12] MEDS: Budesonide/Formoterol 160/4.5 1 PUFF INH IH SCH ×2 (07:29→20:17)
[2021-03-12] MEDS: Insulin LISPRO 300 UNITS/3 ML VIAL SUBQ SCH ×4 (08:32→21:33)
[2021-03-12] MEDS: Prenatal Vit/FA 1 EACH TABLET PO SCH (08:33)
[2021-03-12] MEDS: Calcium Acetate 667 MG CAPSULE PO SCH ×3 (08:33→16:40)
[2021-03-12] MEDS: Fluticasone Propionate Nasal 50 MCG/SPRAY BOTTLE NS SCH ×2 (08:34→21:32)
[2021-03-12] MEDS: *HR* HYDROcodone/Acet 5/325 mg TABLET PO PRN ×2 (08:37→23:33)
[2021-03-12] MEDS ORDERED: 0.9 % Sodium Chloride 250 ML IVC PRN (08:50)
[2021-03-12] MEDS ORDERED: *HR* Heparin 10,000 UNIT/10 ML VIAL IV PRN (08:50)
[2021-03-12] MEDS ORDERED: 0.9 % Sodium Chloride 1,000 ML PRIME SCH (09:00)
[2021-03-12] MEDS: Aspirin Enteric Coated 81 MG Tablet PO SCH (16:40)
[2021-03-12] MEDS: Gabapentin 100 MG CAPSULE PO SCH (21:30)
[2021-03-12] MEDS: Melatonin 3 MG TABLET PO PRN (23:33)
[2021-03-13] MEDS: *HR* Heparin 5,000 UNIT/ML VIAL SQ SCH ×3 (05:40→21:49)
[2021-03-13] MEDS: Levothyroxine 25 MCG TABLET PO SCH (05:40)
[2021-03-13] MEDS: Budesonide/Formoterol 160/4.5 1 PUFF INH IH SCH ×2 (07:31→20:23)
[2021-03-13] MEDS: Insulin LISPRO 300 UNITS/3 ML VIAL SUBQ SCH ×4 (08:01→19:43)
[2021-03-13] MEDS: Prenatal Vit/FA 1 EACH TABLET PO SCH (08:52)
[2021-03-13] MEDS: Calcium Acetate 667 MG CAPSULE PO SCH ×3 (08:52→16:54)
[2021-03-13] MEDS: Fluticasone Propionate Nasal 50 MCG/SPRAY BOTTLE NS SCH ×2 (08:54→19:42)
[2021-03-13] MEDS: Aspirin Enteric Coated 81 MG Tablet PO SCH (16:54)
[2021-03-13] MEDS: Gabapentin 100 MG CAPSULE PO SCH (19:41)
[2021-03-13] MEDS: *HR* HYDROcodone/Acet 5/325 mg TABLET PO PRN (21:49)
[2021-03-13] MEDS: Melatonin 3 MG TABLET PO PRN (21:49)
[2021-03-14 01:30] LABS: Hemoglobin 7.3 g/dL (11.5-15.4); Mean Corpuscular HGB Conc 30.4 g/dL (31.6-35.5); Mean Corpuscular Hemoglobin 31.1 pg (28.0-33.3); Mean Corpuscular Volume 102.1 fL (83.0-100.0); Platelet Count 280 K/mcL (140-400); Red Blood Count 2.35 M/mcL (3.82-4.97); Red Cell Distribution Width 14.1 % (11.5-14.5); White Blood Count 7.7 K/mcL (4.3-11.1)
[2021-03-14 01:48] LABS: Calcium 8.9 mg/dL (8.6-10.3); Magnesium 1.9 mg/dL (1.6-2.6); Phosphorous 4.5 mg/dL (2.7-4.5); Potassium 4.8 mEq/L (3.5-5.1)
[2021-03-14] MEDS: *HR* Heparin 5,000 UNIT/ML VIAL SQ SCH ×2 (04:21→13:25)
[2021-03-14] MEDS: Levothyroxine 25 MCG TABLET PO SCH (04:21)
[2021-03-14] MEDS: Budesonide/Formoterol 160/4.5 1 PUFF INH IH SCH (07:30)
[2021-03-14] MEDS: *HR* HYDROcodone/Acet 5/325 mg TABLET PO PRN (07:44)
[2021-03-14] MEDS: Calcium Acetate 667 MG CAPSULE PO SCH ×2 (07:45→13:24)
[2021-03-14] MEDS: Prenatal Vit/FA 1 EACH TABLET PO SCH (07:45)
[2021-03-14] MEDS: Fluticasone Propionate Nasal 50 MCG/SPRAY BOTTLE NS SCH (07:45)
[2021-03-14] MEDS: Insulin LISPRO 300 UNITS/3 ML VIAL SUBQ SCH ×2 (07:46→12:46)
[2021-03-14] MEDS ORDERED: *HR* Heparin 10,000 UNIT/10 ML VIAL IV PRN ×2 (07:56)
[2021-03-14] MEDS ORDERED: 0.9 % Sodium Chloride 250 ML IVC PRN (07:56)
[2021-03-14 11:58] LABS: Influenza A PCR Negative (Negative); Influenza B PCR Negative (Negative); Resp. Syncytial Virus PCR Negative (Negative)
[2021-03-14 11:59] LABS: SARS-CoV-2 by PCR (In House) Negative (Negative)
[2021-03-14 15:14] VITALS: BP 158/80; PULSE 75; TEMP 98.5; O2SAT 92
== END 2021-03-14 15:55 | DRG 291 ==
LOC: 2ANU 15:18 → EMEROOARM 15:18 → SUATTDRO 20:12 → 2ANU 21:02 → SUATTDRO 03-10 13:55
PROVIDERS: ADMIT Internal Medicine; ATTEND Pharmacist